=== PATIENT | male | born 1940 | race Caucasian/White ===

== ENCOUNTER 2017-03-21 17:21 | Inpatient (IN) | payer MEDICARE, BC ==
[~2017-03-21] VITALS: Ht 165.1 cm; Wt 61.6 kg
[2017-03-21 18:33] LABS: BASOPHILS % 0.3 % (0.0-2.0); EOSINOPHILS % 0.4 % (0.0-7.0); HEMATOCRIT 49.7 % (42.0-52.0); HEMOGLOBIN 16.9 g/dl (14.0-18.0); LYMPHOCYTES # 1.6 10^3/ul (0.8-2.9); MEAN CORPUSCULAR HEMOGLOBIN 29.9 pg (29.0-33.0); MEAN PLATELET VOLUME 11.5 fl (7.4-10.4); MONOCYTE # 0.9 10^3/ul (0.3-0.9); MONOCYTES % 9.3 % (0.0-11.0); NEUTROPHIL # 7.1 10^3/ul (1.6-7.5); NEUTROPHILS % 73.8 % (39.0-77.0); PLATELET COUNT 212 10^3/UL (140-415); RED BLOOD COUNT 5.65 10^6/ul (4.70-6.10); RED CELL DISTRIBUTION WIDTH 12.9 % (11.5-14.5); WHITE BLOOD COUNT 9.7 10^3/ul (4.8-10.8)
[2017-03-21 18:48] LABS: INR 0.98; PARTIAL THROMBOPLASTIN TIME 27.6 Sec (25.0-35.0)
[2017-03-21 18:51] LABS: ANION GAP 12 (8-16); BLOOD UREA NITROGEN 27 mg/dl (7-20); CALCIUM 9.3 mg/dl (8.4-10.2); CARBON DIOXIDE 28 mmol/L (21-31); CHLORIDE 103 mmol/L (97-110); GLUCOSE 124 mg/dl (70-220); POTASSIUM 3.2 mmol/L (3.5-5.1); SODIUM 140 mmol/L (135-144)
[2017-03-21 19:03] LABS: TROPONIN-I < 0.012 ng/ml (0.00-0.12)
[2017-03-21] MEDS ORDERED: POTASSIUM CHLORIDE (SR) 20 MEQ TAB PO STA (19:23)
--- NOTE | 2017-03-21 19:24 | RADRPT ---
PROCEDURE: XR Chest. CLINICAL INDICATION: Possible Stroke, altered mental status TECHNIQUE: Single frontal view of the chest was obtained. COMPARISON: None available FINDINGS: The cardiomediastinal silhouette is normal size. Pulmonary vasculature is within normal limits. Th e lungs are clear. There is mild to moderate aortic calcification. No signs of pleural fluid or pneumothorax are seen. The osseous structures and soft tissues are unre markable. IMPRESSION: No evidence for active cardiopulmonary disease. There is mild to moderate aortic calcification. RPTAT: HBST .Getachew Jolley MD, MD Date Time Electronically viewed and signed by .Getachew Jolley MD, on 03/21/2017 19:23 .T/
--- NOTE | 2017-03-21 19:50 | RADRPT ---
PROCEDURE: Noncontrast CT Head. CLINICAL INDICATION: Dizziness. Possible stroke. TECHNIQUE: Noncontrast CT of the head was obtained. The administered radiation dose was CTDI vol = 44.19 mGy, DLP = 720.23 mGy-cm. One or more of the following dose reduction techniques were used: Au tomated exposure control, Adjustment of the mA and/or kV according to patient size, or Use of iterat leidy reconstruction technique. COMPARISON: There are no similar studies submitted for comparison. FINDINGS: There is a large acute infarct of the left cerebellar hemisphere with sparing of the superior left c erebellar hemisphere, compatible with a left posterior inferior cerebellar artery vascular territory acute infarct.. There is associated local mass effect with mild effacement of the fourth ventricle on the left and mild rightward deviation of the cerebellar vermis. There is mild mass effect on the left dorsolateral medulla. There is associated mild effacement of the left quadrigeminal plate ciste rn. No inferior herniation to the foramen magnum is seen. There is no acute intracranial hemorrhage. There is no midline shift in the supratentorial compartment. There is mild to moderate diffuse cere bral volume loss with compensatory diffuse cerebral sulcal and ventricular enlargement. Patchy low a ttenuation scattered in the periventricular and deep cerebral white matter is nonspecific, but sugge stive of mild chronic microangiopathic change. A 3 mm rounded cortical based calcification in the right parietal lobe is nonspecific but suggestive of sequelae of neurocysticercosis or other inflamm atory/infectious etiology (series 2, image 21). There is intracranial calcific atherosclerotic disea se involving the internal carotid arteries bilaterally and vertebral basilar system. The orbits are grossly unremarkable. There is mild mucosal thickening in the ethmoid sinuses bilaterally. The left frontal sinus is hypoplastic. The visualized mastoid air cells are clear. No acute fracture or suspi cious osseous lesion is identified. IMPRESSION: 1. Large acute infarct in the left inferior and mid cerebellar hemisphere with associated local mass effect. There is mild effacement of the fourth ventricle on the left and mild rightward deviation o f the cerebellar vermis. There is mild mass effect upon the left dorsolateral medulla. No evidence o f hydrocephalus at this time. Recommend short interval follow-up imaging. 2. No evidence of acute intracranial hemorrhage at this time. 3. Mild to moderate diffuse cerebral volume loss. 4. Evidence of mild chronic microangiopathic cerebral white matter change. 5. A 3 mm rounded cortical based calcification in the right parietal lobe is nonspecific, but sugges tive of sequelae of neurocysticercosis or other inflammatory/infectious etiology. 6. Intracranial calcific atherosclerotic disease. 7. Mild ethmoid sinus mucosal thickening. Hypoplastic left frontal sinus. Critical results call report was made to Dr. Lopez at 19:42 on 03/21/2017. RPTAT: [facility] Olegario Navarro Physician Date Time Electronically viewed and signed by Olegario Navarro Physician on 03/21/2017 19:50 RC/
[2017-03-21] MEDS ORDERED: ASPIRIN 325 MG TAB PO ONE (20:00)
[2017-03-21] MEDS ORDERED: ACETAMINOPHEN 650 MG SUPP PR PRN (21:00)
[2017-03-21] MEDS ORDERED: ACETAMINOPHEN 325 MG TAB PO PRN (21:00)
[2017-03-21] MEDS: DOCUSATE SODIUM 100 MG CAP PO SCH (21:00)
[2017-03-21 21:03] VITALS: TEMP 98
[2017-03-21] MEDS ORDERED: ONDANSETRON 4 MG INJ ONE (21:19)
[2017-03-21] MEDS ORDERED: morphine 2 MG INJ ONE (21:19)
--- NOTE | 2017-03-21 21:19 | ERA ---
ER Documentation Chief Complaint Date/Time DATE: 03/21/17 TIME: 21:16 Chief Complaint dizziness and nausea x 3 days HPI Patient is a 76-year-old male with hypertension who presents with dizziness. He said that on Thursday he "looked into the sun" and then became dizzy and fell down. He had vomiting on that day. For 3 days now he has had no vomiting but is unable to stand on his feet. He says that when he tries to walk he falls to the side. He has a left-sided facial droop per the . He has a headache. Upon review of old medical records this is the patient's first visit to the emergency department. ROS All systems reviewed and are negative except as per history of present illness. Allergies Allergies: Coded Allergies: No Known Allergy (Unverified , 03/21/17) PMhx/Soc History of Surgery: No Anesthesia Reaction: No Hx Neurological Disorder: No Hx Respiratory Disorders: No Hx Cardiac Disorders: Yes (HTN) Hx Psychiatric Problems: No Hx Miscellaneous Medical Probl: No Hx Alcohol Use: No Hx Substance Use: No Hx Tobacco Use: No Smoking Status: Never smoker FmHx Family History: No diabetes Physical Exam Vitals Vital Signs Date Time Temp Pulse Resp B/P Pulse Ox O2 Delivery O2 Flow Rate FiO2 03/21/17 21:03 98.0 71 14 166/94 96 Room Air 03/21/17 20:57 75 17 169/91 98 Room Air 03/21/17 20:15 98.2 70 17 176/98 96 03/21/17 19:53 72 16 168/95 98 03/21/17 19:15 72 17 168/100 97 03/21/17 19:12 Nasal Cannula 2 03/21/17 17:25 99.1 86 18 182/96 99 Physical Exam Const: Mild distress Head: Atraumatic Eyes: Normal Conjunctiva ENT: Left sided facial droop which spares the left eyebrow Neck: Full range of motion..~ No meningismus. Resp: Clear to auscultation bilaterally Cardio: Regular rate and rhythm, no murmurs Abd: Soft, non tender, non distended. Normal bowel sounds Skin: No petechiae or rashes Back: No midline or flank tenderness Ext: No cyanosis, or edema Neur: Awake and alert, patient has a left-sided facial droop, finger to nose in the left side is very awkward and he is unable to get to my finger, finger- nose on the right is normal, no pronator drift Psych: Normal Mood and Affect Result Diagram: 03/21/17 1800 03/21/17 1800 Results 24 hrs Laboratory Tests Test 03/21/17 18:00 03/21/17 18:06 White Blood Count 9.710^3/ul Red Blood Count 5.6510^6/ul Hemoglobin 16.9g/dl Hematocrit 49.7% Mean Corpuscular Volume 88.0fl Mean Corpuscular Hemoglobin 29.9pg Mean Corpuscular Hemoglobin Concent 34.0g/dl Red Cell Distribution Width 12.9% Platelet Count 71243^3/UL Mean Platelet Volume 11.5fl Neutrophils % 73.8% Lymphocytes % 16.0% Monocytes % 9.3% Eosinophils % 0.4% Basophils % 0.3% Nucleated Red Blood Cells % 0.0/100WBC Neutrophils # 7.110^3/ul Lymphocytes # 1.610^3/ul Monocytes # 0.910^3/ul Eosinophils # 0.010^3/ul Basophils # 0.010^3/ul Nucleated Red Blood Cells # 0.010^3/ul Prothrombin Time 13.0Sec Prothrombin Time Ratio 1.0 INR International Normalized Ratio 0.98 Activated Partial Thromboplast Time 27.6Sec Sodium Level 140mmol/L Potassium Level 3.2mmol/L Chloride Level 103mmol/L Carbon Dioxide Level 28mmol/L Anion Gap 12 Blood Urea Nitrogen 27mg/dl Creatinine 1.10mg/dl Glucose Level 124mg/dl Hemoglobin A1c 6.3% Calcium Level 9.3mg/dl Troponin I < 0.012ng/ml Bedside Glucose 110mg/dL Current Medications Medications (Trade) Dose Ordered Sig/Branden Route PRN Reason Start Time Stop Time Status Last Admin Dose Admin Potassium Chloride (Klor-Con 20) 40 meq ONCE STAT PO 03/21/17 19:23 03/21/17 19:24 DC 03/21/17 19:53 Aspirin (Aspirin) 325 mg ONCE ONCE PO 03/21/17 20:00 03/21/17 20:05 DC 03/21/17 19:53 Ondansetron HCl (Zofran Inj) 4 mg Q6H PRN IV NAUSEA AND/OR VOMITING 03/21/17 21:00 UNV Acetaminophen (Tylenol Supp) 650 mg Q4H PRN MA PAIN LEVEL 1-3 OR FEVER 03/21/17 21:00 UNV Morphine Sulfate (morphine) 2 mg Q4H PRN IV PAIN LEVEL 7-10 03/21/17 21:00 UNV Pantoprazole (Protonix Iv) 40 mg DAILY@06 IV 03/22/17 06:00 UNV Acetaminophen (Tylenol Tab) 650 mg Q4H PRN PO Temp greater than 99.6F 03/21/17 21:00 UNV Docusate Sodium (Colace) 100 mg BID PO 03/21/17 21:00 UNV Hydralazine HCl (Apresoline) 10 mg Q4H PRN IV ELEVATED BLOOD PRESSURE 03/21/17 21:00 UNV Procedures/MDM CT brain shows left-sided cerebral infarct per radiology. CTA of the brain and neck is pending at this time. EKG read by me: Rate/Rhythm: Regular rate and rhythm at a normal rate Intervals: Normal Impression: No evidence of ischemia or arrhythmia Patient is a 76-year-old male with hypertension who presents with an acute left- sided cerebellar infarct. This likely started 3 days ago on Thursday and hopefully the brain is swollen to its maximum point at this time. There is no sign of herniation on the CT scan. Unfortunately the cerebellar area does not have much space and swelling can be life-threatening. The patient was initially ordered aspirin for the infarct the patient received it prior to speaking with Dr. Emerson the neurosurgeon who would have preferred to hold off on aspirin in case the patient needed to go to surgery. The patient has a blood pressure of under 180 systolic which I would like to keep at this time. The patient will be admitted to the intensive care unit under the care of Dr. Hicks. The patient is not a candidate for TPA given the symptoms started 3 days ago. I did speak to Dr. Emerson from neurosurgery who is the neurosurgeon it solutions architect and will see the patient in consultation. Critical Care: Time: 35 minutes excluding all billable procedures. Treatments/Evaluations: Close monitoring and treatment of unstable vital signs, cardiorespiratory, and neurologic status, while maintaining tight balance of fluid, respiratory, and cardiac interventions. Departure Diagnosis: Primary Impression: Cerebellar infarct Additional Impression: Dizziness Condition: Critical ALICE AMOR MD Mar 21, 2017 21:19
[2017-03-21] MEDS: morphine 2 MG INJ IV PRN ×2 (21:29→21:30)
[2017-03-21] MEDS: ONDANSETRON 4 MG INJ IV PRN (21:30)
[2017-03-21] MEDS ORDERED: SOD CHLORIDE 0.9% 100 ML ONE (21:46)
[2017-03-21] MEDS ORDERED: IOHEXOL 100 ML ONE (21:46)
--- NOTE | 2017-03-21 22:43 | RADRPT ---
PROCEDURE: CTA Head and Neck with contrast. CLINICAL INDICATION: Cerebellar stroke. TECHNIQUE: The study was performed utilizing a GE 64-slice multidetector CT scanner. Direct spiral 1 mm axial sections were obtained through the intracranial vasculature with the use of 100 cc of Vi sipaque 320 nonionic intravenous contrast material. Coronal and sagittal as well as maximal intensi ty projection reformations were obtained. 1 or more of the following dose reduction techniques were utilized: Automated exposure control, adjustment of the mA and/or kV according to patient's size, i terative reconstruction technique. The images were reviewed on a PACS workstation. RADIATION DOSE: CTDIvol: 57.8 mGyDLP: 631.0 mGy-cm COMPARISON: CT head 03/21/2017 FINDINGS: CTA Neck: The aortic arch and proximal great vessels are normal in appearance. The common carotid a rtery is normal in appearance. There is mild to moderate atherosclerotic plaque involving the bilat eral carotid bulbs/proximal ICA with less than 10% luminal narrowing by NASCET criteria.. The cervi josh segments of the internal carotid arteries unremarkable. The vertebral arteries are codominant. The vertebral arteries are normal in appearance. There is no aneurysm, hemodynamically significant stenosis or dissection. There are mild subpleural emphysematous changes in the bilateral lung apice s, right more prominent than left. The neck soft tissues unremarkable CTA head: The petrous and cavernous segment of the internal carotid arteries are normal in appearan ce. There is mild arteriosclerotic plaque involving the parasellar internal carotid arteries. The supraclinoid internal carotid arteries are normal in appearance. The middle and anterior cerebral a rteries as well as their branches are normal in appearance. The anterior communicating artery is pa tent. The left posterior communicating artery is patent. There is origin of the right posteri or cerebral artery, normal variant. The vertebral arteries are codominant. The right posterior inferior cerebellar artery is normal in appearance (axial series image 223). The left posterior inferior cerebellar artery is not visualized distal to its origin (axial series image 212). The hypodensity in the left inferior cerebellar vernon sphere in correlating with the PICA occlusion. The basilar arteries branches are normal in appearanc e. The posterior cerebral arteries unremarkable. There is no filling defect, aneurysm, hemodynamic ally significant stenosis or vascular malformation. CT head wo: There is redemonstration of ill-defined low density involving the left inferior cerebel lar hemisphere, suggesting acute/subacute infarct. There is no evidence of hemorrhagic conversion. T here is no intracranial hemorrhage, extra-axial fluid collection, mass lesion, midline shift or hydr ocephalus. There is mild prominence of the cerebral sulci, lateral and third ventricles. The peña- white matter differentiation is preserved. The basal cisterns are patent. The midline structures a re intact. The orbits, calvarium and extracranial soft tissues are normal in appearance. The visual ized paranasal sinuses, mastoid air cells and middle ear cavities are normally aerated. IMPRESSION: 1. Mild atherosclerosis involving the bilateral carotid bulbs/proximal ICA with less than 10% lumin al narrowing by NASCET criteria. 2. Otherwise, normal CTA of the neck. No evidence of aneurysm, hemodynamically significant stenosis or dissection. 3. Occlusion of the left posterior - inferior cerebellar artery just distal to the origin, correlat e with the patient's low density in the left inferior cerebellar hemisphere. 4. The remaining intracranial arteries are normal in appearance. No evidence of aneurysm, hemodynam ically significant stenosis or vascular malformation. 5. Redemonstration of ill-defined low density in the left inferior cerebellar hemisphere suggestive of infarct, acute/subacute in timing. 6. No intracranial hemorrhage, mass lesion or hydrocephalous. The above findings were discussed with Patient's physician Getachew Lopez by telephone on 03/21/2017 1 0:43:00 PM. RPTAT: [facility]AS .Geronimo Escalera MD, Date Time Electronically viewed and signed by .Geronimo Escalera MD, MD on 03/21/2017 22:43 .S/
--- NOTE | 2017-03-21 22:54 | HP ---
Date/Time of Note Date/Time of Note DATE: 03/21/17 TIME: 22:54 Assessment/Plan VTE Prophylaxis VTE Prophylaxis Intervention: SCD's Lines/Catheters IV [facility]from [facility] Saline Lock Assessment/Plan Chief Complaint/Hosp Course This is a 76-year-old male being admitted to the ICU floor for: #1 Acute/recent CVA: Patient had symptoms approximately 4 days ago. And exam he has a left-sided lower facial droop, left-sided finger to nose exam is abnormal, he also apparently has an unsteady gait, though the examination was deferred. CAT scan of the brain showed: Large acute infarct in the left inferior and mid cerebellar hemisphere with associated local mass effect. There is mild effacement of the fourth ventricle on the left and mild rightward deviation of the cerebellar vermis. There is mild mass effect upon the left dorsolateral medulla. No evidence of hydrocephalus at this time CTA of the neck shows: Occlusion of the left posterior - inferior cerebellar artery just distal to the origin, correlate with the patient's low density in the left inferior cerebellar hemisphere. At the current time we will admit the patient to the ICU. Every 4 hours neuro checks. Bedside swallow eval. Telemetry monitoring. 2D echocardiogram in the a.m. Repeat CAT scan in the a.m. MRI of the brain. Will consult neurology, neurosurgery is already on board as per the ED. PT OT swallow eval. Check lipid panel A1c, TSH. He did receive aspirin 325 mg in the ED. Will defer further aspirin/Plavix to neurology/neurosurgery. #2 elevated blood pressure: We will monitor patient's blood pressures as it does seem like he probably has an underlying history of hypertension and start antihypertensives as indicated with goal of sbp less than 140. #3 DVT GI prophylaxis: SCDs, Protonix Further treatment strategy will be implemented as per the clinical course. Greater than 40 minutes of critical care time was spent on the care and management of this patient. Problems: HPI/ROS Admit Date/Time Admit Date/Time Hx of Present Illness Chief complaint: Dizziness Patient is a 76-year-old male with dizziness. He said that on Thursday he "looked into the sun" and then became dizzy and fell down. He had vomiting on that day. For 3 days now he has had no vomiting but is unable to stand on his feet. He says that when he tries to walk he falls to the left side. He has a left-sided facial droop per the . He has a headache. To the ED physician he stated he had hypertension however to me he denied that he had hypertension. Allergies: NKDA Medications: None ROS Const: As per HPI Eyes : No pain discharge or redness or change in visual acuity ENT: No pain, sore throat, congestion, congestion, dysphagia or discharge Respiratory: No shortness of breath, cough, sputum, wheezing, or pleuritic pain Cardiovascular: No chest pain, palpitation, PND, or edema GI : no change in appetite, abdominal pain, nausea, vomiting, diarrhea, constipation, or change in the color his stool Genitourinary: No dysuria, hematuria, flank pain , discharge or CVA tenderness Musculoskeletal: No joint pain, back pain, neck pain, restricted range of motion in neck or joints Skin: No rash, bruising or hives Neuro: As per HPI Endocrine: No polyuria, polydipsia, temperature intolerance Psych: No hallucination, depression, anxiety or suicidal ideation PMH/Family/Social Past Medical History Previous nasal fracture from fall Past Surgical History Nasal fracture repair, right salivary gland surgery Family History Significant Family History: no pertinent family hx Social History Alcohol Use: none Smoking Status: Never smoker Drug Use: none Exam/Review of Systems Vital Signs Vitals Vital Signs Date Time Temp Pulse Resp B/P Pulse Ox O2 Delivery O2 Flow Rate FiO2 03/21/17 22:12 69 14 186/98 95 Room Air 03/21/17 21:03 98.0 03/21/17 19:12 2 Exam Exam General: Patient is well-developed well-nourished The patient is alert oriented -3 lying comfortably in bed. HEENT: Atraumatic, normocephalic. The pupils are equal, round and reactive. Extraocular motor are intact, left-sided lower facial droop Neck: Supple with full range of motion. No rigidity or meningismus Chest: Nontender Lungs: Clear to auscultation bilaterally no crackles rales or wheezing Heart: Normal S1-S2, Regular rhythm and rate. No murmur, S3, or S4 Abdomen: Soft , nontender, nondistended , bowel sounds are present. No guarding no rebound tenderness , No masses or organomegaly. No costovertebral temporal angle mass Extremities: Normal to inspection, no edema no cyanosis Neurologic: He is alert and oriented 3, normal mental status, speech normal, he does have a left-sided lower facial droop, he is able to raise his bilateral eyebrows, abnormal left-sided finger to nose exam, no pronator drift, gait exam was not performed secondary to patient being tired, however he states that when he is walking he moves towards the left. Additional Comments EKG : Rate/Rhythm: Regular rate and rhythm at a normal rate Intervals: Normal Impression: No evidence of ischemia or arrhythmia As per ED physician documentationPROCEDURE: CTA Head and Neck with contrast. CLINICAL INDICATION: Cerebellar stroke. TECHNIQUE: The study was performed utilizing a GE 64-slice multidetector CT scanner. Direct spiral 1 mm axial sections were obtained through the intracranial vasculature with the use of 100 cc of Visipaque 320 nonionic intravenous contrast material. Coronal and sagittal as well as maximal intensity projection reformations were obtained. 1 or more of the following dose reduction techniques were utilized: Automated exposure control, adjustment of the mA and/or kV according to patient's size, iterative reconstruction technique. The images were reviewed on a PACS workstation. RADIATION DOSE: CTDIvol: 57.8 mGy DLP: 631.0 mGy-cm COMPARISON: CT head 03/21/2017 FINDINGS: CTA Neck: The aortic arch and proximal great vessels are normal in appearance. The common carotid artery is normal in appearance. There is mild to moderate atherosclerotic plaque involving the bilateral carotid bulbs/proximal ICA with less than 10% luminal narrowing by NASCET criteria.. The cervical segments of the internal carotid arteries unremarkable. The vertebral arteries are codominant. The vertebral arteries are normal in appearance. There is no aneurysm, hemodynamically significant stenosis or dissection. There are mild subpleural emphysematous changes in the bilateral lung apices, right more prominent than left. The neck soft tissues unremarkable CTA head: The petrous and cavernous segment of the internal carotid arteries are normal in appearance. There is mild arteriosclerotic plaque involving the parasellar internal carotid arteries. The supraclinoid internal carotid arteries are normal in appearance. The middle and anterior cerebral arteries as well as their branches are normal in appearance. The anterior communicating artery is patent. The left posterior communicating artery is patent. There is origin of the right posterior cerebral artery, normal variant. The vertebral arteries are codominant. The right posterior inferior cerebellar artery is normal in appearance (axial series image 223). The left posterior inferior cerebellar artery is not visualized distal to its origin (axial series image 212). The hypodensity in the left inferior cerebellar hemisphere in correlating with the PICA occlusion. The basilar arteries branches are normal in appearance. The posterior cerebral arteries unremarkable. There is no filling defect, aneurysm, hemodynamically significant stenosis or vascular malformation. CT head wo: There is redemonstration of ill-defined low density involving the left inferior cerebellar hemisphere, suggesting acute/subacute infarct. There is no evidence of hemorrhagic conversion. There is no intracranial hemorrhage, extra-axial fluid collection, mass lesion, midline shift or hydrocephalus. There is mild prominence of the cerebral sulci, lateral and third ventricles. The peña-white matter differentiation is preserved. The basal cisterns are patent. The midline structures are intact. The orbits, calvarium and extracranial soft tissues are normal in appearance. The visualized paranasal sinuses, mastoid air cells and middle ear cavities are normally aerated. IMPRESSION: 1. Mild atherosclerosis involving the bilateral carotid bulbs/proximal ICA with less than 10% luminal narrowing by NASCET criteria. 2. Otherwise, normal CTA of the neck. No evidence of aneurysm, hemodynamically significant stenosis or dissection. 3. Occlusion of the left posterior - inferior cerebellar artery just distal to the origin, correlate with the patient's low density in the left inferior cerebellar hemisphere. 4. The remaining intracranial arteries are normal in appearance. No evidence of aneurysm, hemodynamically significant stenosis or vascular malformation. 5. Redemonstration of ill-defined low density in the left inferior cerebellar hemisphere suggestive of infarct, acute/subacute in timing. 6. No intracranial hemorrhage, mass lesion or hydrocephalous. The above findings were discussed with Patient's physician Alice Amor by telephone on 03/21/2017 10:43:00 PM. RPTAT: HGAS .Geronimo Escalera MD, MD Date Time Electronically viewed and signed by .Geronimo Escalera MD, MD on 03/21/2017 22: 43 .S/ CC: ALICE AMOR MD PROCEDURE: Noncontrast CT Head. CLINICAL INDICATION: Dizziness. Possible stroke. TECHNIQUE: Noncontrast CT of the head was obtained. The administered radiation dose was CTDI vol = 44.19 mGy, DLP = 720.23 mGy-cm. One or more of the following dose reduction techniques were used: Automated exposure control, Adjustment of the mA and/or kV according to patient size, or Use of iterative reconstruction technique. COMPARISON: There are no similar studies submitted for comparison. FINDINGS: There is a large acute infarct of the left cerebellar hemisphere with sparing of the superior left cerebellar hemisphere, compatible with a left posterior inferior cerebellar artery vascular territory acute infarct.. There is associated local mass effect with mild effacement of the fourth ventricle on the left and mild rightward deviation of the cerebellar vermis. There is mild mass effect on the left dorsolateral medulla. There is associated mild effacement of the left quadrigeminal plate cistern. No inferior herniation to the foramen magnum is seen. There is no acute intracranial hemorrhage. There is no midline shift in the supratentorial compartment. There is mild to moderate diffuse cerebral volume loss with compensatory diffuse cerebral sulcal and ventricular enlargement. Patchy low attenuation scattered in the periventricular and deep cerebral white matter is nonspecific, but suggestive of mild chronic microangiopathic change. A 3 mm rounded cortical based calcification in the right parietal lobe is nonspecific but suggestive of sequelae of neurocysticercosis or other inflammatory/infectious etiology (series 2, image 21 ). There is intracranial calcific atherosclerotic disease involving the internal carotid arteries bilaterally and vertebral basilar system. The orbits are grossly unremarkable. There is mild mucosal thickening in the ethmoid sinuses bilaterally. The left frontal sinus is hypoplastic. The visualized mastoid air cells are clear. No acute fracture or suspicious osseous lesion is identified. IMPRESSION: 1. Large acute infarct in the left inferior and mid cerebellar hemisphere with associated local mass effect. There is mild effacement of the fourth ventricle on the left and mild rightward deviation of the cerebellar vermis. There is mild mass effect upon the left dorsolateral medulla. No evidence of hydrocephalus at this time. Recommend short interval follow-up imaging. 2. No evidence of acute intracranial hemorrhage at this time. 3. Mild to moderate diffuse cerebral volume loss. 4. Evidence of mild chronic microangiopathic cerebral white matter change. 5. A 3 mm rounded cortical based calcification in the right parietal lobe is nonspecific, but suggestive of sequelae of neurocysticercosis or other inflammatory/infectious etiology. 6. Intracranial calcific atherosclerotic disease. 7. Mild ethmoid sinus mucosal thickening. Hypoplastic left frontal sinus. Critical results call report was made to Dr. Amor at 19:42 on 03/21/2017. RPTAT: HRC Olegario Navarro Physician Date Time Electronically viewed and signed by Olegario Navarro Physician on 03/21/2017 19: 50 RC/ CC: ALICE AMORROCEDURE: XR Chest. CLINICAL INDICATION: Possible Stroke, altered mental status TECHNIQUE: Single frontal view of the chest was obtained. COMPARISON: None available FINDINGS: The cardiomediastinal silhouette is normal size. Pulmonary vasculature is within normal limits. The lungs are clear. There is mild to moderate aortic calcification. No signs of pleural fluid or pneumothorax are seen. The osseous structures and soft tissues are unremarkable. IMPRESSION: No evidence for active cardiopulmonary disease. There is mild to moderate aortic calcification. RPTAT: HBST .Alice Jolley MD, MD Date Time Electronically viewed and signed by .Alice Jolley MD, MD on 03/21/2017 19:23 .T/ CC: ALICE AMOR MD Labs Result Diagram: 03/21/17 1800 03/21/17 1800 Medications Medications Current Medications Ondansetron HCl (Zofran Inj) 4 mg Q6H PRN IV NAUSEA AND/OR VOMITING Last administered on 03/21/17t 21:30; Admin Dose 4 MG; Start 03/21/17 at 21:00 Acetaminophen (Tylenol Supp) 650 mg Q4H PRN [place] PAIN LEVEL 1-3 OR FEVER; Start 03/21/17 at 21:00 Morphine Sulfate (morphine) 2 mg Q4H PRN IV PAIN LEVEL 7-10 Last administered on 03/21/17t 21:30; Admin Dose 2 MG; Start 03/21/17 at 21:00 Pantoprazole (Protonix Iv) 40 mg DAILY@06 IV ; Start 03/22/17 at 06:00 Acetaminophen (Tylenol Tab) 650 mg Q4H PRN PO Temp greater than 99.6F; Start 03/21/17 at 21:00 Docusate Sodium (Colace) 100 mg BID PO ; Start 03/21/17 at 21:00 Hydralazine HCl (Apresoline) 10 mg Q4H PRN IV ELEVATED BLOOD PRESSURE; Start 03/21/17 at 21:00 LANI DILL Mar 21, 2017 22:54
[2017-03-22] VITALS (41 sets, daily range): BP systolic 109–205; BP diastolic 57–94; PULSE 71–117; RESP 10–26; Ht 165.1 cm; Wt 61.6 kg
[2017-03-22] MEDS: morphine 2 MG INJ IV PRN (00:49)
[2017-03-22] MEDS: hydrALAzine 20 MG INJ IV PRN ×3 (02:08→16:40)
[2017-03-22] MEDS ORDERED: PANTOPRAZOLE 40 MG INJ IV SCH (06:00)
[2017-03-22] MEDS: ONDANSETRON 4 MG INJ IV PRN (08:24)
[2017-03-22] MEDS: DOCUSATE SODIUM 100 MG CAP PO SCH ×2 (08:27→21:47)
[2017-03-22] MEDS ORDERED: EVAC CONTAINER XX SCH (14:00)
[2017-03-22] MEDS ORDERED: EVAC CONTAINER IVPB SCH (14:00)
[2017-03-22] MEDS ORDERED: MANNITOL 20% IVPB SCH (14:00)
[2017-03-22] MEDS ORDERED: MANNITOL XX SCH (14:00)
[2017-03-22] MEDS: MANNITOL 25% 50 ML INJ IV* SCH ×4 (15:00→21:51)
[2017-03-22] MEDS: MANNITOL 20% IVPB SCH ×3 (15:03→17:07)
[2017-03-22] MEDS: EVAC CONTAINER IVPB SCH ×3 (15:03→17:07)
--- NOTE | 2017-03-22 16:01 | PN ---
Date/Time of Note Date/Time of Note DATE: 03/22/17 TIME: 15:58 Assessment/Plan VTE Prophylaxis VTE Prophylaxis Intervention: SCD's Lines/Catheters IV Catheter Type (from Nrsg): Saline Lock Urinary Cath still in place: Yes Reason Cath still needed: urinary retention Assessment/Plan Chief Complaint/Hosp Course 76 yo male with acute cerebellar CVA - Management per neurology/neurosurgery - Aspirin 81 daily, statin - BP control Problems: Subjective 24 Hr Interval Summary Free Text/Dictation Continues to have nausea, emesis L pronator drift and ataxic movements Gait imbalance, drifts to the left w ambulation Exam/Review of Systems Vital Signs Vitals Vital Signs Date Time Temp Pulse Resp B/P Pulse Ox O2 Delivery O2 Flow Rate FiO2 03/22/17 12:30 104 14 128/67 94 03/22/17 12:00 98.3 2.0 03/22/17 11:00 Nasal Cannula Intake and Output 03/21/17 03/21/17 03/22/17 15:00 23:00 07:00 Output Total 150 ml Balance -150 ml Results Result Diagram: 03/21/17 1800 03/21/17 1800 Results 24 hrs Laboratory Tests Test 03/21/17 18:00 03/21/17 18:06 White Blood Count 9.7 Red Blood Count 5.65 Hemoglobin 16.9 Hematocrit 49.7 Mean Corpuscular Volume 88.0 Mean Corpuscular Hemoglobin 29.9 Mean Corpuscular Hemoglobin Concent 34.0 Red Cell Distribution Width 12.9 Platelet Count 212 Mean Platelet Volume 11.5 H Neutrophils % 73.8 Lymphocytes % 16.0 Monocytes % 9.3 Eosinophils % 0.4 Basophils % 0.3 Nucleated Red Blood Cells % 0.0 Neutrophils # 7.1 Lymphocytes # 1.6 Monocytes # 0.9 Eosinophils # 0.0 Basophils # 0.0 Nucleated Red Blood Cells # 0.0 Prothrombin Time 13.0 Prothrombin Time Ratio 1.0 INR International Normalized Ratio 0.98 Activated Partial Thromboplast Time 27.6 Sodium Level 140 Potassium Level 3.2 L Chloride Level 103 Carbon Dioxide Level 28 Anion Gap 12 Blood Urea Nitrogen 27 H Creatinine 1.10 Glucose Level 124 Hemoglobin A1c 6.3 H Calcium Level 9.3 Troponin I < 0.012 Bedside Glucose 110 Medications Medications Current Medications Ondansetron HCl (Zofran Inj) 4 mg Q6H PRN IV NAUSEA AND/OR VOMITING Last administered on 03/22/17 08:24; Admin Dose 4 MG; Start 03/21/17 at 21:00 Acetaminophen (Tylenol Supp) 650 mg Q4H PRN [place] PAIN LEVEL 1-3 OR FEVER; Start 03/21/17 at 21:00 Morphine Sulfate (morphine) 2 mg Q4H PRN IV PAIN LEVEL 7-10 Last administered on 03/22/17 00:49; Admin Dose 2 MG; Start 03/21/17 at 21:00 Acetaminophen (Tylenol Tab) 650 mg Q4H PRN PO Temp greater than 99.6F; Start 03/21/17 at 21:00 Docusate Sodium (Colace) 100 mg BID PO ; Start 03/21/17 at 21:00 Hydralazine HCl (Apresoline) 10 mg Q4H PRN IV ELEVATED BLOOD PRESSURE Last administered on 03/22/17 07:46; Admin Dose 10 MG; Start 03/21/17 at 21:00 Influenza Virus Vaccine (Fluzone) 0.5 ml ONCE ONCE IM* ; Start 03/24/17 at 09: 00; Stop 03/24/17 at 09:01 Mannitol 25 gm 25 gm Q4 IV* ; Start 03/22/17 at 13:00 Mannitol/N/A (Mannitol 20%/ Evac Container) 125 ml @ 250 mls/hr Q4 IVPB Last administered on 03/22/17 15:03; Admin Dose 250 MLS/HR; Start 03/22/17 at 14:00 Famotidine (Pepcid Iv) 20 mg Q12 IV ; Start 03/22/17 at 21:00 MEHNAZ BRYANT MD Mar 22, 2017 16:01
--- NOTE | 2017-03-22 17:34 | CONS ---
Date/Time of Note Date/Time of Note DATE: 03/22/17 TIME: 17:27 Assessment/Plan Assessment/Plan Chief Complaint/Hosp Course 76 year old M with no significant PMHx 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 CTA showed occlusion Left PICA Undergoing further work up. Recommendations: Mannitol given, neurosurgery following in case he requires sub-occipital craniectomy continue close neuro checks continue ICU level care stat Head CT for worsening of mentation, decreased attention pupillary changes or development of weakness SBP less than 140 continue aspirin MRI Brain w/o contrast to evaluate extent of infarction ECHO w bubble Check lipid panel HBA1C Tele monitoring for afib DVT ppx PT/OT/Speech eval will follow please contact me for any decline in his status Problems: Consultation Date/Type/Reason Admit Date/Time 03/22/17 Date of Consultation: Mar 22, 2017 Type of Consultation: Neurology Reason for Consultation Left PICA infarct Referring Provider: LANI DILL Hx of Present Illness 76 year old male with no significant PMHx p/w c/o dizziness headaches and nausea. His sx began this past Thursday, had episodes of vomiting on that day. He reports significant ataxia unable to stand for the past few days falling to the left with left facial droop noted. CTH showed large Left PICA infarction with associated mass effect mild effacement of fourth ventricle with mild deviation cerebellar vermis no hemorrhage or HCP. He is admitted to the ICU for closer monitoring. nausea headache Past Medical History none Social History Smoking Status: Former smoker Exam/Review of Systems Vital Signs Vitals Vital Signs Date Time Temp Pulse Resp B/P Pulse Ox O2 Delivery O2 Flow Rate FiO2 03/22/17 16:19 93 03/22/17 12:30 14 128/67 94 03/22/17 12:00 98.3 2.0 03/22/17 11:00 Nasal Cannula Intake and Output 03/21/17 03/21/17 03/22/17 15:00 23:00 07:00 Output Total 150 ml Balance -150 ml Exam arousable awake and alert oriented x3 attentive can count backwards 10 --> 1 with no difficulty no aphasia CN: KVNG, no nystagmus visual field intact no sig. facial asymmetry Motor: no drift in arms, strength equal throughout Sensory intact throughout Coordination: difficulty mild ataxia left FTN gait not tested Results Result Diagram: 03/21/17 1800 03/21/17 1800 Results 24 hrs Laboratory Tests Test 03/21/17 18:00 03/21/17 18:06 White Blood Count 9.7 Red Blood Count 5.65 Hemoglobin 16.9 Hematocrit 49.7 Mean Corpuscular Volume 88.0 Mean Corpuscular Hemoglobin 29.9 Mean Corpuscular Hemoglobin Concent 34.0 Red Cell Distribution Width 12.9 Platelet Count 212 Mean Platelet Volume 11.5 H Neutrophils % 73.8 Lymphocytes % 16.0 Monocytes % 9.3 Eosinophils % 0.4 Basophils % 0.3 Nucleated Red Blood Cells % 0.0 Neutrophils # 7.1 Lymphocytes # 1.6 Monocytes # 0.9 Eosinophils # 0.0 Basophils # 0.0 Nucleated Red Blood Cells # 0.0 Prothrombin Time 13.0 Prothrombin Time Ratio 1.0 INR International Normalized Ratio 0.98 Activated Partial Thromboplast Time 27.6 Sodium Level 140 Potassium Level 3.2 L Chloride Level 103 Carbon Dioxide Level 28 Anion Gap 12 Blood Urea Nitrogen 27 H Creatinine 1.10 Glucose Level 124 Hemoglobin A1c 6.3 H Calcium Level 9.3 Troponin I < 0.012 Bedside Glucose 110 Medications Medications Current Medications Ondansetron HCl (Zofran Inj) 4 mg Q6H PRN IV NAUSEA AND/OR VOMITING Last administered on 03/22/17 08:24; Admin Dose 4 MG; Start 03/21/17 at 21:00 Acetaminophen (Tylenol Supp) 650 mg Q4H PRN [place] PAIN LEVEL 1-3 OR FEVER; Start 03/21/17 at 21:00 Morphine Sulfate (morphine) 2 mg Q4H PRN IV PAIN LEVEL 7-10 Last administered on 03/22/17 00:49; Admin Dose 2 MG; Start 03/21/17 at 21:00 Acetaminophen (Tylenol Tab) 650 mg Q4H PRN PO Temp greater than 99.6F; Start 03/21/17 at 21:00 Docusate Sodium (Colace) 100 mg BID PO ; Start 03/21/17 at 21:00 Hydralazine HCl (Apresoline) 10 mg Q4H PRN IV ELEVATED BLOOD PRESSURE Last administered on 03/22/17 16:40; Admin Dose 10 MG; Start 03/21/17 at 21:00 Influenza Virus Vaccine (Fluzone) 0.5 ml ONCE ONCE IM* ; Start 03/24/17 at 09: 00; Stop 03/24/17 at 09:01 Mannitol 25 gm 25 gm Q4 IV* ; Start 03/22/17 at 13:00 Mannitol/N/A (Mannitol 20%/ Evac Container) 125 ml @ 250 mls/hr Q4 IVPB Last administered on 03/22/17t 17:07; Admin Dose 250 MLS/HR; Start 03/22/17 at 14:00 Famotidine (Pepcid Iv) 20 mg Q12 IV ; Start 03/22/17 at 21:00 Aspirin (Aspirin) 81 mg DAILY PO ; Start 03/23/17 at 09:00 Atorvastatin Calcium (Lipitor) 40 mg HS PO ; Start 03/22/17 at 21:00 PRASANNA MAN MD Mar 22, 2017 17:34
--- NOTE | 2017-03-22 18:43 | RADRPT ---
PROCEDURE: MR Brain. CLINICAL INDICATION: TECHNIQUE: An MRI of the brain was performed utilizing the following sequences: Sagittal and axia l T1 weighted, axial T2 weighted, axial sagittal FLAIR, coronal GRE,axial SWAN, axial diffusion weig hted (EPI technique l=[id number]), axial ADC mapping. The images were reviewed on a high-resolution PACS w orkstation. COMPARISON: CT brain from 03/21/2017 FINDINGS: MRI BRAIN: An acute infarct in the left cerebellar hemisphere is again seen. Mass effect upon the fourth ventri oj is seen as well as the left dorsal and lingula. No evidence of hydrocephalus is seen. No other d iffusion weighted abnormalities are seen to suggest the presence of acute ischemia or recent infarct . No susceptibility abnormality is seen. There is no intracranial hemorrhage, mass effect, or midl ine shift. No extra-axial fluid collection is seen. Mild to moderate diffuse cerebral volume loss is seen. Mild amount of scattered nonspecific white matter disease in the periventricular and deep white matter is seen. Normal flow voids are visible the proximal intracranial arteries and dural sin uses, indicating patency. The visualized paranasal sinuses are clear. The mastoid air cells, orbits , and calvarium are unremarkable. 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 IMPRESSION: 1. Acute left cerebellar hemisphere infarct again seen with mass effect upon the fourth ventricle wi thout evidence of hydrocephalus. 2. Mild to moderate volume loss with mild chronic microvascular ischemic changes. RPTAT: HPNM Physician Sylvie Date Time Electronically viewed and signed by Physician Sylvie on 03/22/2017 18:43 /
[2017-03-22] MEDS ORDERED: FAMOTIDINE 20 MG INJ IV SCH (21:00)
[2017-03-22] MEDS ORDERED: ATORVASTATIN 40 MG TAB PO SCH (21:00)
[2017-03-23] VITALS (37 sets, daily range): BP systolic 104–167; BP diastolic 56–87; PULSE 58–106; RESP 10–21
[2017-03-23] MEDS: MANNITOL 25% 50 ML INJ IV* SCH ×2 (01:00→05:35)
[2017-03-23] MEDS: MANNITOL 20% IVPB SCH ×6 (01:02→21:19)
[2017-03-23] MEDS: EVAC CONTAINER IVPB SCH ×6 (01:02→21:19)
--- NOTE | 2017-03-23 06:39 | RADRPT ---
PROCEDURE: CT Brain without contrast. CLINICAL INDICATION: Cerebellar infarct. Follow-up study. TECHNIQUE: Axial images from the skull base through the vertex without IV contrast. Multiplanar r eformatted images were made. Images were reviewed on a PACS workstation. The CTDIvol is 45.0 mGy a nd the DLP is 810.25 mGycm. One or more of the following dose reduction techniques were used: autom ated exposure control, adjustment of the mA and/or kV according to patient size, or use of iterative reconstruction technique. COMPARISON: MRI from 03/22/[address] from 03/21/2017 FINDINGS: Again seen is atrophy and probable chronic microvascular ischemic changes. Right parietal cortical c alcification is again seen. Large area of low attenuation in the left cerebellum consistent with inf arct is again seen. There is no evidence for hemorrhagic transformation. Mass effect on the fourth v entricle is again seen. Ventricular size is stable. No new area of infarct is seen. No midline shift is seen. No extraaxial fluid collection is seen. There is mild mucoperiosteal thickening of the ma xillary and ethmoid sinuses. IMPRESSION: No interval change. Large left cerebellar infarct without evidence of hemorrhagic transformation. At rophy and chronic microvascular ischemic changes. RPTAT: HLBE Physician Betina Date Time Electronically viewed and signed by Physician Betina on 03/23/2017 06:38 LE/
[2017-03-23 06:41] LABS: BASOPHILS % 0.4 % (0.0-2.0); EOSINOPHILS # 0.1 10^3/ul (0.0-0.5); EOSINOPHILS % 1.1 % (0.0-7.0); HEMATOCRIT 47.4 % (42.0-52.0); HEMOGLOBIN 15.6 g/dl (14.0-18.0); LYMPHOCYTES # 1.4 10^3/ul (0.8-2.9); LYMPHOCYTES % 13.5 % (15.0-51.0); MEAN CORPUSCULAR HEMOGLOBIN 29.7 pg (29.0-33.0); MEAN CORPUSCULAR HGB CONC 32.9 g/dl (32.0-37.0); MEAN CORPUSCULAR VOLUME 90.1 fl (82.0-101.0); MEAN PLATELET VOLUME 12.7 fl (7.4-10.4); MONOCYTE # 0.9 10^3/ul (0.3-0.9); MONOCYTES % 9.1 % (0.0-11.0); NEUTROPHIL # 7.8 10^3/ul (1.6-7.5); NEUTROPHILS % 75.6 % (39.0-77.0); PLATELET COUNT 205 10^3/UL (140-415); RED BLOOD COUNT 5.26 10^6/ul (4.70-6.10); RED CELL DISTRIBUTION WIDTH 13.6 % (11.5-14.5); WHITE BLOOD COUNT 10.3 10^3/ul (4.8-10.8)
[2017-03-23 06:51] LABS: CHOL/HDL RATIO 4.2 RATIO
[2017-03-23 07:50] LABS: CALCIUM 8.9 mg/dl (8.4-10.2); CREATININE 1.1 mg/dl (0.61-1.24); MAGNESIUM 2.3 mg/dl (1.7-2.5); POTASSIUM 3.7 mmol/L (3.5-5.1)
[2017-03-23] MEDS: AMLODIPINE 5 MG TAB PO SCH (09:30)
[2017-03-23] MEDS: hydrALAzine 20 MG INJ IV PRN (09:30)
[2017-03-23] MEDS: DOCUSATE SODIUM 100 MG CAP PO SCH ×2 (09:39→21:20)
[2017-03-23] MEDS: ASPIRIN 81 MG TAB PO SCH (09:39)
[2017-03-23 10:01] LABS: ADD UMIC YES; UR ASCORBIC ACID NEGATIVE (NEGATIVE); UR BILIRUBIN (Dip) NEGATIVE (NEGATIVE); UR BLOOD (Dip) 1+ mg/dL (NEGATIVE); UR CLARITY CLEAR (CLEAR); UR COLOR YELLOW (YELLOW); UR GLUCOSE (Dip) NEGATIVE (NEGATIVE); UR KETONES (Dip) 1+ mg/dL (NEGATIVE); UR LEUKOCYTE ESTERASE (Dip) NEGATIVE Leu/ul (NEGATIVE); UR NITRITE (Dip) NEGATIVE (NEGATIVE); UR RBC 1 /HPF (0-5); UR SPECIFIC GRAVITY (Dip) 1.036 (1.003-1.030); UR TOTAL PROTEIN (Dip) 1+ mg/dl (NEGATIVE); UR UROBILINOGEN (Dip) NEGATIVE (NEGATIVE)
[2017-03-23 10:20] LABS: BARBITURATES Negative (NEGATIVE); BENZODIAZEPINES Negative (NEGATIVE); CANNABINOIDS Negative (NEGATIVE); COCAINE Negative (NEGATIVE); OPIATES Negative (NEGATIVE)
--- NOTE | 2017-03-23 12:13 | CONS ---
Date/Time of Note Date/Time of Note DATE: 03/23/17 TIME: 12:11 Consult Date/Type/Reason Admit Date/Time Mar 22, 2017 at 04:30 Initial Consult Date 03/22/17 Type of Consultation: Neurology Reason for Consultation Left PICA Stroke Ordering Provider: LANI DILL Subjective headache and nausea improved Objective Vital Signs Date Time Temp Pulse Resp B/P Pulse Ox O2 Delivery O2 Flow Rate FiO2 03/23/17 10:00 98 14 147/73 94 Nasal Cannula 03/23/17 08:00 98.4 03/22/17 20:00 2.0 Intake and Output 03/22/17 03/22/17 03/23/17 14:59 22:59 06:59 Intake Total 80 ml 370 ml 300 ml Output Total 870 ml 785 ml 525 ml Balance -790 ml -415 ml -225 ml Exam arousable awake and alert oriented x3 attentive can count backwards 10 --> 1 with no difficulty no aphasia CN: KVNG, no nystagmus visual field intact no sig. facial asymmetry Motor: no drift in arms, strength equal throughout Sensory intact throughout Coordination: difficulty mild ataxia left FTN gait not tested Results/Medications Result Diagram: 03/23/17 0400 03/23/17 0400 Results 24 hrs Laboratory Tests Test 03/23/17 04:00 03/23/17 05:00 White Blood Count 10.3 Red Blood Count 5.26 Hemoglobin 15.6 Hematocrit 47.4 Mean Corpuscular Volume 90.1 Mean Corpuscular Hemoglobin 29.7 Mean Corpuscular Hemoglobin Concent 32.9 Red Cell Distribution Width 13.6 Platelet Count 205 Mean Platelet Volume 12.7 H Neutrophils % 75.6 Lymphocytes % 13.5 L Monocytes % 9.1 Eosinophils % 1.1 Basophils % 0.4 Nucleated Red Blood Cells % 0.0 Neutrophils # 7.8 H Lymphocytes # 1.4 Monocytes # 0.9 Eosinophils # 0.1 Basophils # 0.0 Nucleated Red Blood Cells # 0.0 Sodium Level 141 Potassium Level 3.7 Chloride Level 104 Carbon Dioxide Level 26 Anion Gap 15 Blood Urea Nitrogen 25 H Creatinine 1.10 Glucose Level 116 Calcium Level 8.9 Phosphorus Level 5.3 H Magnesium Level 2.3 Triglycerides Level 91 Cholesterol Level 164 LDL Cholesterol, Calculated 107 HDL Cholesterol 39 Cholesterol/HDL Ratio 4.2 Urine Color YELLOW Urine Clarity CLEAR Urine pH 6.0 Urine Specific [place] 1.036 H Urine Ketones 1+ H Urine Nitrite NEGATIVE Urine Bilirubin NEGATIVE Urine Urobilinogen NEGATIVE Urine Leukocyte Esterase NEGATIVE Urine Microscopic RBC 1 Urine Microscopic WBC 9 H Urine Hemoglobin 1+ H Urine Glucose NEGATIVE Urine Total Protein 1+ H Urine Opiates Screen Negative Urine Barbiturates Negative Urine Amphetamines Screen Negative Urine Benzodiazepines Screen Negative Urine Cocaine Screen Negative Urine Cannabinoids Negative Medications Current Medications Ondansetron HCl (Zofran Inj) 4 mg Q6H PRN IV NAUSEA AND/OR VOMITING Last administered on 03/22/17 08:24; Admin Dose 4 MG; Start 03/21/17 at 21:00 Acetaminophen (Tylenol Supp) 650 mg Q4H PRN [place] PAIN LEVEL 1-3 OR FEVER; Start 03/21/17 at 21:00 Morphine Sulfate (morphine) 2 mg Q4H PRN [place] PAIN LEVEL 7-10 Last administered on 03/22/17 00:49; Admin Dose 2 MG; Start 03/21/17 at 21:00 Acetaminophen (Tylenol Tab) 650 mg Q4H PRN PO Temp greater than 99.6F; Start 03/21/17 at 21:00 Docusate Sodium (Colace) 100 mg BID PO Last administered on 03/23/17 09:39; Admin Dose 100 MG; Start 03/21/17 at 21:00 Hydralazine HCl (Apresoline) 10 mg Q4H PRN IV ELEVATED BLOOD PRESSURE Last administered on 03/23/17 09:30; Admin Dose 10 MG; Start 03/21/17 at 21:00 Influenza Virus Vaccine (Fluzone) 0.5 ml ONCE ONCE IM* ; Start 03/24/17 at 09: 00; Stop 03/24/17 at 09:01 Mannitol 25 gm 25 gm Q4 IV* Last administered on 03/23/17 05:35; Admin Dose 25 GM; Start 03/22/17 at 13:00; Status Future Hold Mannitol/N/A (Mannitol 20%/ Evac Container) 125 ml @ 250 mls/hr Q4 IVPB Last administered on 03/23/17 09:42; Admin Dose 250 MLS/HR; Start 03/22/17 at 14:00 Aspirin (Aspirin) 81 mg DAILY PO Last administered on 03/23/17 09:39; Admin Dose 81 MG; Start 03/23/17 at 09:00 Atorvastatin Calcium (Lipitor) 40 mg HS PO Last administered on 03/22/17t 21:48 ; Admin Dose 40 MG; Start 03/22/17 at 21:00 Amlodipine Besylate (Norvasc) 5 mg DAILY PO ; Start 03/23/17 at 09:30 Famotidine (Pepcid) 20 mg DAILY PO ; Start 03/24/17 at 09:00 Assessment/Plan Chief Complaint/Hosp Course 76 year old M with no significant PMHx 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 CTA showed occlusion Left PICA Undergoing further work up. MRI Brain: 1. Acute left cerebellar hemisphere infarct again seen with mass effect upon the fourth ventricle without evidence of hydrocephalus. 2. Mild to moderate volume loss with mild chronic microvascular ischemic changes. 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
--- NOTE | 2017-03-23 15:04 | PN ---
Date/Time of Note Date/Time of Note DATE: 03/23/17 TIME: 14:56 Assessment/Plan VTE Prophylaxis VTE Prophylaxis Intervention: SCD's Lines/Catheters IV [facility]from [facility] [place] [facility] Assessment/Plan Chief Complaint/Hosp Course 1. Acute cerebellar CVA-stable at this time PT eval cont Mannitol, aspirin and statin Start Norvasc for BP control, goal SBP below 140 Neurology following ICU monitoring 2. Hypertension Start Norvasc 3. Pre-diabetes A1c 6.3 Lifestyle changes Prophylaxis: SCDs Problems: Subjective 24 Hr Interval Summary Constitutional: no complaints Exam/Review of Systems Vital Signs Vitals Vital Signs Date Time Temp Pulse Resp B/P Pulse Ox O2 Delivery O2 Flow Rate FiO2 03/23/17 12:00 98.2 91 14 159/79 95 Nasal Cannula 03/22/17 20:00 2.0 Intake and Output 03/22/17 03/22/17 03/23/17 15:00 23:00 07:00 Intake Total 80 ml 370 ml 300 ml Output Total 930 ml 825 ml 500 ml Balance -850 ml -455 ml -200 ml Exam Constitutional: alert, oriented Respiratory: clear to auscultation Cardiovascular: regular rate and rhythm Gastrointestinal: soft, No distended Musculoskeletal: nl extremities to inspection Results Result Diagram: 03/23/17 0400 03/23/17 0400 Results 24 hrs Laboratory Tests Test 03/23/17 04:00 03/23/17 05:00 White Blood Count 10.3 Red Blood Count 5.26 Hemoglobin 15.6 Hematocrit 47.4 Mean Corpuscular Volume 90.1 Mean Corpuscular Hemoglobin 29.7 Mean Corpuscular Hemoglobin Concent 32.9 Red Cell Distribution Width 13.6 Platelet Count 205 Mean Platelet Volume 12.7 H Neutrophils % 75.6 Lymphocytes % 13.5 L Monocytes % 9.1 Eosinophils % 1.1 Basophils % 0.4 Nucleated Red Blood Cells % 0.0 Neutrophils # 7.8 H Lymphocytes # 1.4 Monocytes # 0.9 Eosinophils # 0.1 Basophils # 0.0 Nucleated Red Blood Cells # 0.0 Sodium Level 141 Potassium Level 3.7 Chloride Level 104 Carbon Dioxide Level 26 Anion Gap 15 Blood Urea Nitrogen 25 H Creatinine 1.10 Glucose Level 116 Calcium Level 8.9 Phosphorus Level 5.3 H Magnesium Level 2.3 Triglycerides Level 91 Cholesterol Level 164 LDL Cholesterol, Calculated 107 HDL Cholesterol 39 Cholesterol/HDL Ratio 4.2 Urine Color YELLOW Urine Clarity CLEAR Urine pH 6.0 Urine Specific [place] 1.036 H Urine Ketones 1+ H Urine Nitrite NEGATIVE Urine Bilirubin NEGATIVE Urine Urobilinogen NEGATIVE Urine Leukocyte Esterase NEGATIVE Urine Microscopic RBC 1 Urine Microscopic WBC 9 H Urine Hemoglobin 1+ H Urine Glucose NEGATIVE Urine Total Protein 1+ H Urine Opiates Screen Negative Urine Barbiturates Negative Urine Amphetamines Screen Negative Urine Benzodiazepines Screen Negative Urine Cocaine Screen Negative Urine Cannabinoids Negative Medications Medications Current Medications Ondansetron HCl (Zofran Inj) 4 mg Q6H PRN IV NAUSEA AND/OR VOMITING Last administered on 03/22/17 08:24; Admin Dose 4 MG; Start 03/21/17 at 21:00 Acetaminophen (Tylenol Supp) 650 mg Q4H PRN [place] PAIN LEVEL 1-3 OR FEVER; Start 03/21/17 at 21:00 Morphine Sulfate (morphine) 2 mg Q4H PRN IV PAIN LEVEL 7-10 Last administered on 03/22/17 00:49; Admin Dose 2 MG; Start 03/21/17 at 21:00 Acetaminophen (Tylenol Tab) 650 mg Q4H PRN PO Temp greater than 99.6F; Start 03/21/17 at 21:00 Docusate Sodium (Colace) 100 mg BID PO Last administered on 03/23/17 09:39; Admin Dose 100 MG; Start 03/21/17 at 21:00 Hydralazine HCl (Apresoline) 10 mg Q4H PRN IV ELEVATED BLOOD PRESSURE Last administered on 03/23/17 09:30; Admin Dose 10 MG; Start 03/21/17 at 21:00 Influenza Virus Vaccine 0.5 ml 0.5 ml ONCE ONCE IM* ; Start 03/24/17 at 09:00; Stop 03/24/17 at 09:01 Mannitol/N/A (Mannitol 20%/ Evac Container) 125 ml @ 250 mls/hr Q4 IVPB Last administered on 03/23/17 09:42; Admin Dose 250 MLS/HR; Start 03/22/17 at 14:00 ; Stop 03/26/17 at 09:29 Aspirin (Aspirin) 81 mg DAILY PO Last administered on 03/23/17 09:39; Admin Dose 81 MG; Start 03/23/17 at 09:00 Amlodipine Besylate (Norvasc) 5 mg DAILY PO Last administered on 03/23/17t 09: 30; Admin Dose 5 MG; Start 03/23/17 at 09:30 Famotidine (Pepcid) 20 mg DAILY PO ; Start 03/24/17 at 09:00 Atorvastatin Calcium (Lipitor) 80 mg HS PO ; Start 03/23/17 at 21:00 VEGA BRAUN Mar 23, 2017 15:04
--- NOTE | 2017-03-23 19:38 | CONS ---
Date/Time of Note Date/Time of Note DATE: 03/23/17 TIME: 19:34 Consultation Date/Type/Reason Admit Date/Time Mar 22, 2017 at 04:30 Initial Consult Date 03/22/17 Type of Consultation: Neurology Referring Provider: LANI DILL 24 HR Interval Summary Free Text/Dictation Patient is awake and alert. He is moving all extremities. Family reports that he is "more himself". Serum Na141. CT unchanged. His CVA was probably on Thursday (~5 days ago) and I do not think at this point there is likely to be significant further swelling of the posterior fossa to cause obstruction or to mandate craniectomy. In my opinion he is clear to trnasfer out of ICU, dc mannitol, and begin ASA. I will sign off for now. Please feel free to re-c/s. Exam/Review of Systems Vital Signs Vitals Vital Signs Date Time Temp Pulse Resp B/P Pulse Ox O2 Delivery O2 Flow Rate FiO2 03/23/17 18:00 92 14 133/68 93 Nasal Cannula 03/23/17 16:00 98.4 03/22/17 20:00 2.0 Intake and Output 03/22/17 03/22/17 03/23/17 15:00 23:00 07:00 Intake Total 80 ml 370 ml 300 ml Output Total 930 ml 825 ml 500 ml Balance -850 ml -455 ml -200 ml Results Result Diagram: 03/23/17 0400 03/23/17 0400 Results 24 hrs Laboratory Tests Test 03/23/17 04:00 03/23/17 05:00 White Blood Count 10.3 Red Blood Count 5.26 Hemoglobin 15.6 Hematocrit 47.4 Mean Corpuscular Volume 90.1 Mean Corpuscular Hemoglobin 29.7 Mean Corpuscular Hemoglobin Concent 32.9 Red Cell Distribution Width 13.6 Platelet Count 205 Mean Platelet Volume 12.7 H Neutrophils % 75.6 Lymphocytes % 13.5 L Monocytes % 9.1 Eosinophils % 1.1 Basophils % 0.4 Nucleated Red Blood Cells % 0.0 Neutrophils # 7.8 H Lymphocytes # 1.4 Monocytes # 0.9 Eosinophils # 0.1 Basophils # 0.0 Nucleated Red Blood Cells # 0.0 Sodium Level 141 Potassium Level 3.7 Chloride Level 104 Carbon Dioxide Level 26 Anion Gap 15 Blood Urea Nitrogen 25 H Creatinine 1.10 Glucose Level 116 Calcium Level 8.9 Phosphorus Level 5.3 H Magnesium Level 2.3 Triglycerides Level 91 Cholesterol Level 164 LDL Cholesterol, Calculated 107 HDL Cholesterol 39 Cholesterol/HDL Ratio 4.2 Urine Color YELLOW Urine Clarity CLEAR Urine pH 6.0 Urine Specific [place] 1.036 H Urine Ketones 1+ H Urine Nitrite NEGATIVE Urine Bilirubin NEGATIVE Urine Urobilinogen NEGATIVE Urine Leukocyte Esterase NEGATIVE Urine Microscopic RBC 1 Urine Microscopic WBC 9 H Urine Hemoglobin 1+ H Urine Glucose NEGATIVE Urine Total Protein 1+ H Urine Opiates Screen Negative Urine Barbiturates Negative Urine Amphetamines Screen Negative Urine Benzodiazepines Screen Negative Urine Cocaine Screen Negative Urine Cannabinoids Negative Medications Medications Current Medications Ondansetron HCl (Zofran Inj) 4 mg Q6H PRN IV NAUSEA AND/OR VOMITING Last administered on 03/22/17 08:24; Admin Dose 4 MG; Start 03/21/17 at 21:00 Acetaminophen (Tylenol Supp) 650 mg Q4H PRN [place] PAIN LEVEL 1-3 OR FEVER; Start 03/21/17 at 21:00 Morphine Sulfate (morphine) 2 mg Q4H PRN IV PAIN LEVEL 7-10 Last administered on 03/22/17 00:49; Admin Dose 2 MG; Start 03/21/17 at 21:00 Acetaminophen (Tylenol Tab) 650 mg Q4H PRN PO Temp greater than 99.6F; Start 03/21/17 at 21:00 Docusate Sodium (Colace) 100 mg BID PO Last administered on 03/23/17 09:39; Admin Dose 100 MG; Start 03/21/17 at 21:00 Hydralazine HCl (Apresoline) 10 mg Q4H PRN IV ELEVATED BLOOD PRESSURE Last administered on 03/23/17 09:30; Admin Dose 10 MG; Start 03/21/17 at 21:00 Influenza Virus Vaccine 0.5 ml 0.5 ml ONCE ONCE IM* ; Start 03/24/17 at 09:00; Stop 03/24/17 at 09:01 Mannitol/N/A (Mannitol 20%/ Evac Container) 125 ml @ 250 mls/hr Q4 IVPB Last administered on 03/23/17 17:00; Admin Dose 250 MLS/HR; Start 03/22/17 at 14:00 ; Stop 03/26/17 at 09:29 Aspirin (Aspirin) 81 mg DAILY PO Last administered on 03/23/17 09:39; Admin Dose 81 MG; Start 03/23/17 at 09:00 Amlodipine Besylate (Norvasc) 5 mg DAILY PO Last administered on 03/23/17 09: 30; Admin Dose 5 MG; Start 03/23/17 at 09:30 Famotidine (Pepcid) 20 mg DAILY PO ; Start 03/24/17 at 09:00 Atorvastatin Calcium (Lipitor) 80 mg HS PO ; Start 03/23/17 at 21:00 AURA DIAZ MD Mar 23, 2017 19:38
[2017-03-23] MEDS: ATORVASTATIN 80 MG TAB PO SCH (21:20)
[2017-03-24] VITALS (29 sets, daily range): BP systolic 109–160; BP diastolic 55–98; PULSE 60–105; RESP 11–22
[2017-03-24] MEDS: MANNITOL 20% IVPB SCH ×6 (01:31→21:00)
[2017-03-24] MEDS: EVAC CONTAINER IVPB SCH ×6 (01:31→21:00)
[2017-03-24 05:22] LABS: BASOPHILS % 0.3 % (0.0-2.0); EOSINOPHILS # 0.3 10^3/ul (0.0-0.5); EOSINOPHILS % 2.8 % (0.0-7.0); HEMATOCRIT 44.6 % (42.0-52.0); HEMOGLOBIN 14.6 g/dl (14.0-18.0); LYMPHOCYTES # 1.6 10^3/ul (0.8-2.9); LYMPHOCYTES % 15.8 % (15.0-51.0); MEAN CORPUSCULAR HEMOGLOBIN 29.6 pg (29.0-33.0); MEAN CORPUSCULAR HGB CONC 32.7 g/dl (32.0-37.0); MEAN CORPUSCULAR VOLUME 90.3 fl (82.0-101.0); MEAN PLATELET VOLUME 12.3 fl (7.4-10.4); MONOCYTES % 9.7 % (0.0-11.0); NEUTROPHIL # 7.2 10^3/ul (1.6-7.5); NEUTROPHILS % 71.1 % (39.0-77.0); PLATELET COUNT 188 10^3/UL (140-415); RED BLOOD COUNT 4.94 10^6/ul (4.70-6.10); RED CELL DISTRIBUTION WIDTH 13.2 % (11.5-14.5); WHITE BLOOD COUNT 10.1 10^3/ul (4.8-10.8)
[2017-03-24 05:55] LABS: CALCIUM 8.7 mg/dl (8.4-10.2); CREATININE 1.07 mg/dl (0.61-1.24); POTASSIUM 3.5 mmol/L (3.5-5.1)
[2017-03-24] MEDS: hydrALAzine 20 MG INJ IV PRN (07:51)
[2017-03-24] MEDS: ASPIRIN 81 MG TAB PO SCH (08:06)
[2017-03-24] MEDS: AMLODIPINE 5 MG TAB PO SCH (08:06)
[2017-03-24] MEDS: DOCUSATE SODIUM 100 MG CAP PO SCH ×2 (08:07→21:12)
[2017-03-24] MEDS: FAMOTIDINE 20 MG TAB PO SCH (08:07)
[2017-03-24] MEDS ORDERED: INFLUENZA VIRUS VACCINE 0.5 ML (DISPENSING) IM* ONE (09:00)
--- NOTE | 2017-03-24 10:50 | CONS ---
Date/Time of Note Date/Time of Note DATE: 03/24/17 TIME: 10:48 Consult Date/Type/Reason Admit Date/Time Mar 22, 2017 at 04:30 Initial Consult Date 03/22/17 Type of Consultation: Neurology Reason for Consultation Left PICA CVA Ordering Provider: LANI DILL Subjective hiccups today at bedside Objective Vital Signs Date Time Temp Pulse Resp B/P Pulse Ox O2 Delivery O2 Flow Rate FiO2 03/24/17 08:00 96 03/24/17 06:00 11 157/98 94 Nasal Cannula 03/24/17 04:00 97.8 03/23/17 20:00 2.0 Intake and Output 03/23/17 03/23/17 03/24/17 15:00 23:00 07:00 Intake Total 1080 ml 370 ml 370 ml Output Total 825 ml 650 ml 550 ml Balance 255 ml -280 ml -180 ml Exam arousable awake and alert oriented x3 attentive can count backwards 10 --> 1 with no difficulty no aphasia CN: KVNG, no nystagmus visual field intact no sig. facial asymmetry Motor: no drift in arms, strength equal throughout Sensory intact throughout Coordination: difficulty mild ataxia left FTN gait not tested Results/Medications Result Diagram: 03/24/17 0430 03/24/17 0430 Results 24 hrs Laboratory Tests Test 03/24/17 04:30 White Blood Count 10.1 Red Blood Count 4.94 Hemoglobin 14.6 Hematocrit 44.6 Mean Corpuscular Volume 90.3 Mean Corpuscular Hemoglobin 29.6 Mean Corpuscular Hemoglobin Concent 32.7 Red Cell Distribution Width 13.2 Platelet Count 188 Mean Platelet Volume 12.3 H Neutrophils % 71.1 Lymphocytes % 15.8 Monocytes % 9.7 Eosinophils % 2.8 Basophils % 0.3 Nucleated Red Blood Cells % 0.0 Neutrophils # 7.2 Lymphocytes # 1.6 Monocytes # 1.0 H Eosinophils # 0.3 Basophils # 0.0 Nucleated Red Blood Cells # 0.0 Sodium Level 139 Potassium Level 3.5 Chloride Level 104 Carbon Dioxide Level 29 Anion Gap 10 # Blood Urea Nitrogen 26 H Creatinine 1.07 Glucose Level 116 Calcium Level 8.7 Medications Current Medications Ondansetron HCl (Zofran Inj) 4 mg Q6H PRN IV NAUSEA AND/OR VOMITING Last administered on 03/22/17t 08:24; Admin Dose 4 MG; Start 03/21/17 at 21:00 Acetaminophen (Tylenol Supp) 650 mg Q4H PRN [place] PAIN LEVEL 1-3 OR FEVER; Start 03/21/17 at 21:00 Morphine Sulfate (morphine) 2 mg Q4H PRN IV PAIN LEVEL 7-10 Last administered on 03/22/17 00:49; Admin Dose 2 MG; Start 03/21/17 at 21:00 Acetaminophen (Tylenol Tab) 650 mg Q4H PRN PO Temp greater than 99.6F; Start 03/21/17 at 21:00 Docusate Sodium (Colace) 100 mg BID PO Last administered on 03/24/17 08:07; Admin Dose 100 MG; Start 03/21/17 at 21:00 Hydralazine HCl 10 mg 10 mg Q4H PRN IV ELEVATED BLOOD PRESSURE Last administered on 03/24/17 07:51; Admin Dose 10 MG; Start 03/21/17 at 21:00 Mannitol/N/A (Mannitol 20%/ Evac Container) 125 ml @ 250 mls/hr Q4 IVPB Last administered on 03/24/17 05:47; Admin Dose 250 MLS/HR; Start 03/22/17 at 14:00 ; Stop 03/26/17 at 09:29 Aspirin (Aspirin) 81 mg DAILY PO Last administered on 03/24/17 08:06; Admin Dose 81 MG; Start 03/23/17 at 09:00 Amlodipine Besylate (Norvasc) 5 mg DAILY PO Last administered on 03/24/17 08: 06; Admin Dose 5 MG; Start 03/23/17 at 09:30 Famotidine (Pepcid) 20 mg DAILY PO Last administered on 03/24/17 08:07; Admin Dose 20 MG; Start 03/24/17 at 09:00 Atorvastatin Calcium (Lipitor) 80 mg HS PO Last administered on 03/23/17 21:20 ; Admin Dose 80 MG; Start 03/23/17 at 21:00 Assessment/Plan Chief Complaint/Hosp Course 76 year old M with no significant PMHx 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 CTA showed occlusion Left PICA Undergoing further work up. MRI Brain: 1. Acute left cerebellar hemisphere infarct again seen with mass effect upon the fourth ventricle without evidence of hydrocephalus. 2. Mild to moderate volume loss with mild chronic microvascular ischemic changes. 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
--- NOTE | 2017-03-24 11:26 | RADRPT ---
PROCEDURE: CT Brain without contrast. CLINICAL INDICATION: Follow-up cerebellar infarct. Increase ICP. TECHNIQUE: A CT of the brain was performed on a multidetector CT scanner utilizing axial sections from the skull base through the vertex without contrast. Images were reviewed on a high-resolution [employer] workstation. Exam CTDI = 43.58, and 45.01 mGy and the DLP = 810.25 mGy-cm. One or more of the following dose reduction techniques were used: Automated exposure control Adjustment of the mA and/or kV according to patient size. Use of iterative reconstruction technique. COMPARISON: CT head 03/23/2017. FINDINGS: Mild to moderate diffuse cerebral and cerebellar atrophy is present. There is proportionate dilatat ion of the ventricular system and sulci in a symmetric fashion. There is prominence of the extraaxia l spaces secondary to atrophy. There is no evidence of intracranial hemorrhage, mass effect or midli ne shift. Redemonstrated is a large area of evolving infarct involving the left inferior cerebellar hemisphere. There is no hemorrhagic conversion. Minimal mass effect upon the fourth ventricle remain s stable. No abnormal intra-axial or extra-axial fluid collections are seen. There is a punctate josh cification in the right parietal lobe. The density of the brain is normal and the peña/white matter differentiation is well preserved. Mild patchy diffuse deep white matter microangiopathic ischemic change is seen. The osseous structures are unremarkable. Paranasal sinuses are clear. Vascular c alcifications are identified. IMPRESSION: 1. Evolving left cerebellar infarct with no evidence of hemorrhagic conversion or significant assoc iated mass effect. No change in ventricular size and configuration. 2. Mild to moderate generalized atrophy. Mild microangiopathic ischemic change. 3. Intracranial atherosclerosis. RPTAT: BB .Lexus Carrillo MD, MD Date Time Electronically viewed and signed by .Lexus Carrillo MD, MD on 03/24/2017 11:25 .O/
--- NOTE | 2017-03-24 14:59 | PN ---
Date/Time of Note Date/Time of Note DATE: 03/24/17 TIME: 14:59 Assessment/Plan VTE Prophylaxis VTE Prophylaxis Intervention: SCD's Lines/Catheters IV [facility] Saline Lock Assessment/Plan Chief Complaint/Hosp Course 1. 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 Hypertension Continue Norvasc 3. Pre-diabetes A1c 6.3 Lifestyle changes Prophylaxis: SCDs Problems: Subjective 24 Hr Interval Summary Constitutional: no complaints Exam/Review of Systems Vital Signs Vitals Vital Signs Date Time Temp Pulse Resp B/P Pulse Ox O2 Delivery O2 Flow Rate FiO2 03/24/17 13:00 88 14 160/88 95 Nasal Cannula 03/24/17 12:00 98.4 03/23/17 20:00 2.0 Intake and Output 03/23/17 03/23/17 03/24/17 15:00 23:00 07:00 Intake Total 1080 ml 370 ml 370 ml Output Total 825 ml 650 ml 610 ml Balance 255 ml -280 ml -240 ml Exam Constitutional: alert, oriented Respiratory: clear to auscultation Cardiovascular: regular rate and rhythm Gastrointestinal: soft, No distended Musculoskeletal: nl extremities to inspection Results Result Diagram: 03/24/1742903/24/17 0430 Results 24 hrs Laboratory Tests Test 03/24/17 04:30 White Blood Count 10.1 Red Blood Count 4.94 Hemoglobin 14.6 Hematocrit 44.6 Mean Corpuscular Volume 90.3 Mean Corpuscular Hemoglobin 29.6 Mean Corpuscular Hemoglobin Concent 32.7 Red Cell Distribution Width 13.2 Platelet Count 188 Mean Platelet Volume 12.3 H Neutrophils % 71.1 Lymphocytes % 15.8 Monocytes % 9.7 Eosinophils % 2.8 Basophils % 0.3 Nucleated Red Blood Cells % 0.0 Neutrophils # 7.2 Lymphocytes # 1.6 Monocytes # 1.0 H Eosinophils # 0.3 Basophils # 0.0 Nucleated Red Blood Cells # 0.0 Sodium Level 139 Potassium Level 3.5 Chloride Level 104 Carbon Dioxide Level 29 Anion Gap 10 # Blood Urea Nitrogen 26 H Creatinine 1.07 Glucose Level 116 Calcium Level 8.7 Medications Medications Current Medications Ondansetron HCl (Zofran Inj) 4 mg Q6H PRN IV NAUSEA AND/OR VOMITING Last administered on 03/22/17 08:24; Admin Dose 4 MG; Start 03/21/17 at 21:00 Acetaminophen (Tylenol Supp) 650 mg Q4H PRN [place] PAIN LEVEL 1-3 OR FEVER; Start 03/21/17 at 21:00 Morphine Sulfate (morphine) 2 mg Q4H PRN IV PAIN LEVEL 7-10 Last administered on 03/22/17 00:49; Admin Dose 2 MG; Start 03/21/17 at 21:00 Acetaminophen (Tylenol Tab) 650 mg Q4H PRN PO Temp greater than 99.6F; Start 03/21/17 at 21:00 Docusate Sodium (Colace) 100 mg BID PO Last administered on 03/24/17 08:07; Admin Dose 100 MG; Start 03/21/17 at 21:00 Hydralazine HCl 10 mg 10 mg Q4H PRN IV ELEVATED BLOOD PRESSURE Last administered on 03/24/17 07:51; Admin Dose 10 MG; Start 03/21/17 at 21:00 Mannitol/N/A (Mannitol 20%/ Evac Container) 125 ml @ 250 mls/hr Q4 IVPB Last administered on 03/24/17 09:00; Admin Dose 250 MLS/HR; Start 03/22/17 at 14:00 ; Stop 03/26/17 at 09:29 Aspirin (Aspirin) 81 mg DAILY PO Last administered on 03/24/17 08:06; Admin Dose 81 MG; Start 03/23/17 at 09:00 Amlodipine Besylate (Norvasc) 5 mg DAILY PO Last administered on 03/24/17 08: 06; Admin Dose 5 MG; Start 03/23/17 at 09:30 Famotidine (Pepcid) 20 mg DAILY PO Last administered on 03/24/17 08:07; Admin Dose 20 MG; Start 03/24/17 at 09:00 Atorvastatin Calcium (Lipitor) 80 mg HS PO Last administered on 03/23/17 21:20 ; Admin Dose 80 MG; Start 03/23/17 at 21:00 VEGA BRAUN Mar 24, 2017 14:59
[2017-03-24] MEDS: ATORVASTATIN 80 MG TAB PO SCH (21:12)
[2017-03-25] VITALS (20 sets, daily range): BP systolic 109–163; BP diastolic 58–98; PULSE 71–90; RESP 10–18
[2017-03-25] MEDS: MANNITOL 20% IVPB SCH ×3 (01:37→09:16)
[2017-03-25] MEDS: EVAC CONTAINER IVPB SCH ×3 (01:37→09:16)
[2017-03-25 05:55] LABS: BASOPHILS % 0.3 % (0.0-2.0); EOSINOPHILS # 0.3 10^3/ul (0.0-0.5); EOSINOPHILS % 2.7 % (0.0-7.0); HEMATOCRIT 44.7 % (42.0-52.0); HEMOGLOBIN 14.6 g/dl (14.0-18.0); LYMPHOCYTES # 1.9 10^3/ul (0.8-2.9); LYMPHOCYTES % 19.9 % (15.0-51.0); MEAN CORPUSCULAR HEMOGLOBIN 29.4 pg (29.0-33.0); MEAN CORPUSCULAR HGB CONC 32.7 g/dl (32.0-37.0); MEAN CORPUSCULAR VOLUME 90.1 fl (82.0-101.0); MEAN PLATELET VOLUME 12.4 fl (7.4-10.4); MONOCYTE # 0.9 10^3/ul (0.3-0.9); NEUTROPHIL # 6.3 10^3/ul (1.6-7.5); NEUTROPHILS % 66.9 % (39.0-77.0); PLATELET COUNT 190 10^3/UL (140-415); RED BLOOD COUNT 4.96 10^6/ul (4.70-6.10); RED CELL DISTRIBUTION WIDTH 13.2 % (11.5-14.5); WHITE BLOOD COUNT 9.4 10^3/ul (4.8-10.8)
[2017-03-25 06:32] LABS: CALCIUM 8.6 mg/dl (8.4-10.2); CREATININE 1.06 mg/dl (0.61-1.24); MAGNESIUM 2.2 mg/dl (1.7-2.5); POTASSIUM 3.5 mmol/L (3.5-5.1)
[2017-03-25] MEDS: FAMOTIDINE 20 MG TAB PO SCH (09:01)
[2017-03-25] MEDS: AMLODIPINE 5 MG TAB PO SCH (09:01)
[2017-03-25] MEDS: DOCUSATE SODIUM 100 MG CAP PO SCH ×2 (09:01→21:23)
[2017-03-25] MEDS: ASPIRIN 81 MG TAB PO SCH (09:02)
[2017-03-25] MEDS: hydrALAzine 20 MG INJ IV PRN (09:04)
--- NOTE | 2017-03-25 10:25 | CONS ---
Date/Time of Note Date/Time of Note DATE: 03/25/17 TIME: 10:21 Consult Date/Type/Reason Admit Date/Time Mar 22, 2017 at 04:30 Initial Consult Date 03/22/17 Type of Consultation: Neurology Reason for Consultation Left PICA infarct Ordering Provider: LANI DILL Subjective improving symptoms less nausea and headaches Objective Vital Signs Date Time Temp Pulse Resp B/P Pulse Ox O2 Delivery O2 Flow Rate FiO2 03/25/17 08:30 74 10 159/88 94 Nasal Cannula 03/25/17 08:00 98.6 03/23/17 20:00 2.0 Intake and Output 03/24/17 03/24/17 03/25/17 14:59 22:59 06:59 Intake Total 480 ml 610 ml 470 ml Output Total 550 ml 455 ml 495 ml Balance -70 ml 155 ml -25 ml Exam arousable awake and alert oriented x3 attentive can count backwards 10 --> 1 with no difficulty no aphasia CN: KVNG, no nystagmus visual field intact no sig. facial asymmetry Motor: no drift in arms, strength equal throughout Sensory intact throughout Coordination: ataxia improved gait not tested Results/Medications Result Diagram: 03/25/17 0506 03/25/17 0506 Results 24 hrs Laboratory Tests Test 03/25/17 05:06 White Blood Count 9.4 Red Blood Count 4.96 Hemoglobin 14.6 Hematocrit 44.7 Mean Corpuscular Volume 90.1 Mean Corpuscular Hemoglobin 29.4 Mean Corpuscular Hemoglobin Concent 32.7 Red Cell Distribution Width 13.2 Platelet Count 190 Mean Platelet Volume 12.4 H Neutrophils % 66.9 Lymphocytes % 19.9 Monocytes % 10.0 Eosinophils % 2.7 Basophils % 0.3 Nucleated Red Blood Cells % 0.0 Neutrophils # 6.3 Lymphocytes # 1.9 Monocytes # 0.9 Eosinophils # 0.3 Basophils # 0.0 Nucleated Red Blood Cells # 0.0 Sodium Level 139 Potassium Level 3.5 Chloride Level 103 Carbon Dioxide Level 28 Anion Gap 12 Blood Urea Nitrogen 28 H Creatinine 1.06 Glucose Level 114 Calcium Level 8.6 Phosphorus Level 4.5 Magnesium Level 2.2 Medications Current Medications Ondansetron HCl (Zofran Inj) 4 mg Q6H PRN IV NAUSEA AND/OR VOMITING Last administered on 03/22/17t 08:24; Admin Dose 4 MG; Start 03/21/17 at 21:00 Acetaminophen (Tylenol Supp) 650 mg Q4H PRN NV PAIN LEVEL 1-3 OR FEVER; Start 03/21/17 at 21:00 Morphine Sulfate (morphine) 2 mg Q4H PRN IV PAIN LEVEL 7-10 Last administered on 03/22/17 00:49; Admin Dose 2 MG; Start 03/21/17 at 21:00 Acetaminophen (Tylenol Tab) 650 mg Q4H PRN PO Temp greater than 99.6F; Start 03/21/17 at 21:00 Docusate Sodium (Colace) 100 mg BID PO Last administered on 03/25/17 09:01; Admin Dose 100 MG; Start 03/21/17 at 21:00 Hydralazine HCl 10 mg 10 mg Q4H PRN IV ELEVATED BLOOD PRESSURE Last administered on 03/25/17 09:04; Admin Dose 10 MG; Start 03/21/17 at 21:00 Mannitol/N/A (Mannitol 20%/ Evac Container) 125 ml @ 250 mls/hr Q4 IVPB Last administered on 03/25/17 09:16; Admin Dose 250 MLS/HR; Start 03/22/17 at 14:00 ; Stop 03/26/17 at 09:29 Aspirin (Aspirin) 81 mg DAILY PO Last administered on 03/25/17 09:02; Admin Dose 81 MG; Start 03/23/17 at 09:00 Amlodipine Besylate (Norvasc) 5 mg DAILY PO Last administered on 03/25/17 09: 01; Admin Dose 5 MG; Start 03/23/17 at 09:30 Famotidine (Pepcid) 20 mg DAILY PO Last administered on 03/25/17 09:01; Admin Dose 20 MG; Start 03/24/17 at 09:00 Atorvastatin Calcium (Lipitor) 80 mg HS PO Last administered on 03/24/17 21: 12; Admin Dose 80 MG; Start 03/23/17 at 21:00 Assessment/Plan Chief Complaint/Hosp Course 76 year old M with no significant PMHx 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 CTA showed occlusion Left PICA Undergoing further work up. MRI Brain: 1. Acute left cerebellar hemisphere infarct again seen with mass effect upon the fourth ventricle without evidence of hydrocephalus. 2. Mild to moderate volume loss with mild chronic microvascular ischemic changes. Recommendations: repeat Head CT this am for hiccups concerning for elevated ICP, if stable may tx out of ICU to tele SBP less than 140 continue aspirin ECHO w bubble is pending LDL is 107, HBA1C 6.3% Lipitor 80 mg qhs pre-diabetes hematology nurse educator consultation dietary modification Tele monitoring for afib DVT ppx PT/OT/Speech eval will follow please contact me for any decline in his status may tx to tele today Problems: PRASANNA MAN MD Mar 25, 2017 10:25
--- NOTE | 2017-03-25 16:42 | RADRPT ---
Echocardiogram Report Patient Name: LAZARO ALEMAN Gender: Male Date: 1940 Study Date: 22-Mar-2017 Activities Leader: Katie Villavicencio RDCS Location: [address] [place] [address]. Physician: LANI DILL Quality: Technically Difficult Study Procedures: Transthoracic echocardiogram with complete 2D, M-Mode, and doppler examination. Indications: stroke w/ bubble study. 2D/M Mode Doppler Measurement Value Normal Ranges Measurement Value Normal Ranges LVIDd 2D 4.0 3.5 - 5.6 cm AV Peak Cecilio 1.5 m/sec LVIDs 2D 2.6 2.1 - 4.1 cm AV Peak PG 9.0 mmHg FS 2D 33.9 % LVOT Peak Cecilio 1.0 m/sec LVPWd 2D 1.3 0.6 - 1.1 cm LVOT Peak PG 4.0 mmHg IVSd 2D 1.3 0.6 - 1.1 cm MV E Peak Cecilio 0.5 m/sec IVS/LVPW 2D 1.0 MV A Peak Cecilio 0.8 m/sec AoR Diam 2D 2.8 2.0 - 3.7 cm MV E/A 0.6 LA/Ao 2D 1 0 - 1 MV Decel Time 183 msec EDV 2D 61.6 cm3 MV E/A 0.6 ESV 2D 17.8 cm3 TR Peak Cecilio 2.0 m/sec LA Dimen 2D 3.0 2.3 - 4.0 cm TR Peak PG 17.0 mmHg RVSP 20.0 mmHg Findings Left Ventricle: Normal left ventricular systolic function. Normal left ventricular cavity size. Mild concentric left ventricular hypertrophy. Ejection fraction is visually estimated at 65 %. Tissue Doppler/Mitral Doppler indices are consistent with impaired relaxation (Stage I diastolic dysfunction). Right Ventricle: Normal right ventricular size. Normal right ventricular systolic function. Left Atrium: There is mild enlargement of left atrium. Right Atrium: The right atrium is normal in size. Atrial Septum: Bubble study was performed with and with out valsalva indicating no evidence of intra atrial shunt. Mitral Valve: Normal appearance and function of the mitral valve with trace physiologic regurgitation. Aortic Valve: No significant aortic stenosis or insufficiency. Aortic cusps appear mildly calcified. Tricuspid Valve: Normal appearance of the tricuspid valve. Estimated peak PA systolic pressure 20 mmHg. There is trace tricuspid regurgitation. Pulmonic Valve: Pulmonic valve not well visualized. Pericardium: Normal pericardium with no significant pericardial effusion. Aorta: Normal aortic root. IVC: Normal size and normal respiratory collapse consistent with normal right atrial pressure. Conclusions Normal left ventricular systolic function. Normal left ventricular cavity size. Mild concentric left ventricular hypertrophy. Ejection fraction is visually estimated at 65 %. Tissue Doppler/Mitral Doppler indices are consistent with impaired relaxation (Stage I diastolic dysfunction). No significant valvular stenosis or regurgitation seen. Bubble study was performed with and without valsalva indicating no evidence of intra atrial shunt. Estimated peak PA systolic pressure 20 mmHg based on RA pressure of 3 mmHg. Electronically Signed By: Wade White 25-Mar-2017 16:40:55 -0700 Patient Name: LAZARO ALEMAN Study Date: 22-Mar-[id number]
--- NOTE | 2017-03-25 19:21 | PN ---
Date/Time of Note Date/Time of Note DATE: 03/25/17 TIME: 19:20 Assessment/Plan VTE Prophylaxis VTE Prophylaxis Intervention: SCD's Lines/Catheters IV Catheter Type (from Nrs): Saline Lock Assessment/Plan Chief Complaint/Hosp Course 1. 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 Hypertension-stable Continue Norvasc 3. Pre-diabetes A1c 6.3 Lifestyle changes Prophylaxis: SCDs Problems: Subjective 24 Hr Interval Summary Constitutional: no complaints Exam/Review of Systems Vital Signs Vitals Vital Signs Date Time Temp Pulse Resp B/P Pulse Ox O2 Delivery O2 Flow Rate FiO2 03/25/17 16:36 81 03/25/17 15:30 98.2 16 142/68 96 03/25/17 11:00 Nasal Cannula 03/23/17 20:00 2.0 Intake and Output 03/24/17 03/24/17 03/25/17 15:00 23:00 07:00 Intake Total 480 ml 610 ml 470 ml Output Total 530 ml 490 ml 540 ml Balance -50 ml 120 ml -70 ml Exam Constitutional: alert, oriented Respiratory: clear to auscultation Cardiovascular: regular rate and rhythm Gastrointestinal: soft, No distended Musculoskeletal: nl extremities to inspection Results Result Diagram: 03/25/17 0506 03/25/17 0506 Results 24 hrs Laboratory Tests Test 03/25/17 05:06 White Blood Count 9.4 Red Blood Count 4.96 Hemoglobin 14.6 Hematocrit 44.7 Mean Corpuscular Volume 90.1 Mean Corpuscular Hemoglobin 29.4 Mean Corpuscular Hemoglobin Concent 32.7 Red Cell Distribution Width 13.2 Platelet Count 190 Mean Platelet Volume 12.4 H Neutrophils % 66.9 Lymphocytes % 19.9 Monocytes % 10.0 Eosinophils % 2.7 Basophils % 0.3 Nucleated Red Blood Cells % 0.0 Neutrophils # 6.3 Lymphocytes # 1.9 Monocytes # 0.9 Eosinophils # 0.3 Basophils # 0.0 Nucleated Red Blood Cells # 0.0 Sodium Level 139 Potassium Level 3.5 Chloride Level 103 Carbon Dioxide Level 28 Anion Gap 12 Blood Urea Nitrogen 28 H Creatinine 1.06 Glucose Level 114 Calcium Level 8.6 Phosphorus Level 4.5 Magnesium Level 2.2 Medications Medications Current Medications Ondansetron HCl (Zofran Inj) 4 mg Q6H PRN IV NAUSEA AND/OR VOMITING Last administered on 03/22/17 08:24; Admin Dose 4 MG; Start 03/21/17 at 21:00 Acetaminophen (Tylenol Supp) 650 mg Q4H PRN [place] PAIN LEVEL 1-3 OR FEVER; Start 03/21/17 at 21:00 Morphine Sulfate (morphine) 2 mg Q4H PRN IV PAIN LEVEL 7-10 Last administered on 03/22/17 00:49; Admin Dose 2 MG; Start 03/21/17 at 21:00 Acetaminophen (Tylenol Tab) 650 mg Q4H PRN PO Temp greater than 99.6F; Start 03/21/17 at 21:00 Docusate Sodium (Colace) 100 mg BID PO Last administered on 03/25/17 09:01; Admin Dose 100 MG; Start 03/21/17 at 21:00 Hydralazine HCl (Apresoline) 10 mg Q4H PRN IV ELEVATED BLOOD PRESSURE Last administered on 03/25/17 09:04; Admin Dose 10 MG; Start 03/21/17 at 21:00 Aspirin (Aspirin) 81 mg DAILY PO Last administered on 03/25/17 09:02; Admin Dose 81 MG; Start 03/23/17 at 09:00 Amlodipine Besylate (Norvasc) 5 mg DAILY PO Last administered on 03/25/17 09: 01; Admin Dose 5 MG; Start 03/23/17 at 09:30 Famotidine (Pepcid) 20 mg DAILY PO Last administered on 03/25/17 09:01; Admin Dose 20 MG; Start 03/24/17 at 09:00 Atorvastatin Calcium (Lipitor) 80 mg HS PO Last administered on 03/24/17 21: 12; Admin Dose 80 MG; Start 03/23/17 at 21:00 VEGA BRAUN Mar 25, 2017 19:21
[2017-03-25] MEDS: ATORVASTATIN 80 MG TAB PO SCH (21:23)
[2017-03-26] VITALS (13 sets, daily range): BP systolic 128–154; BP diastolic 60–85; PULSE 40–97; RESP 18–19
[2017-03-26] MEDS: AMLODIPINE 5 MG TAB PO SCH (08:45)
[2017-03-26] MEDS: FAMOTIDINE 20 MG TAB PO SCH (08:45)
[2017-03-26] MEDS: ASPIRIN 81 MG TAB PO SCH (08:45)
[2017-03-26] MEDS: DOCUSATE SODIUM 100 MG CAP PO SCH ×2 (08:46→20:53)
--- NOTE | 2017-03-26 11:57 | CONS ---
Date/Time of Note Date/Time of Note DATE: 03/26/17 TIME: 11:55 Consult Date/Type/Reason Admit Date/Time Mar 22, 2017 at 04:30 Initial Consult Date 03/22/17 Type of Consultation: Neurology Reason for Consultation Left PICA infarct Ordering Provider: LANI DILL Subjective tx to tele remains stable Objective Vital Signs Date Time Temp Pulse Resp B/P Pulse Ox O2 Delivery O2 Flow Rate FiO2 03/26/17 11:19 98.2 87 19 139/75 93 03/25/17 11:00 Nasal Cannula 03/23/17 20:00 2.0 Intake and Output 03/25/17 03/25/17 03/26/17 15:00 23:00 07:00 Intake Total 295 ml 250 ml 200 ml Output Total 530 ml 300 ml Balance -235 ml -50 ml 200 ml Exam arousable awake and alert oriented x3 attentive can count backwards 10 --> 1 with no difficulty no aphasia CN: KVNG, no nystagmus visual field intact no sig. facial asymmetry Motor: no drift in arms, strength equal throughout Sensory intact throughout Coordination: ataxia improved gait not tested Results/Medications Result Diagram: 03/25/17 0506 03/25/17 0506 Medications Current Medications Ondansetron HCl (Zofran Inj) 4 mg Q6H PRN IV NAUSEA AND/OR VOMITING Last administered on 03/22/17 08:24; Admin Dose 4 MG; Start 03/21/17 at 21:00 Acetaminophen (Tylenol Supp) 650 mg Q4H PRN [place] PAIN LEVEL 1-3 OR FEVER; Start 03/21/17 at 21:00 Morphine Sulfate (morphine) 2 mg Q4H PRN IV PAIN LEVEL 7-10 Last administered on 03/22/17 00:49; Admin Dose 2 MG; Start 03/21/17 at 21:00 Acetaminophen (Tylenol Tab) 650 mg Q4H PRN PO Temp greater than 99.6F; Start 03/21/17 at 21:00 Docusate Sodium (Colace) 100 mg BID PO Last administered on 03/26/17 08:46; Admin Dose 100 MG; Start 03/21/17 at 21:00 Hydralazine HCl (Apresoline) 10 mg Q4H PRN IV ELEVATED BLOOD PRESSURE Last administered on 03/25/17 09:04; Admin Dose 10 MG; Start 03/21/17 at 21:00 Aspirin (Aspirin) 81 mg DAILY PO Last administered on 03/26/17 08:45; Admin Dose 81 MG; Start 03/23/17 at 09:00 Amlodipine Besylate (Norvasc) 5 mg DAILY PO Last administered on 03/26/17 08: 45; Admin Dose 5 MG; Start 03/23/17 at 09:30 Famotidine (Pepcid) 20 mg DAILY PO Last administered on 03/26/17 08:45; Admin Dose 20 MG; Start 03/24/17 at 09:00 Atorvastatin Calcium (Lipitor) 80 mg HS PO Last administered on 03/25/17 21: 23; Admin Dose 80 MG; Start 03/23/17 at 21:00 Assessment/Plan Chief Complaint/Hosp Course 76 year old M with no significant PMHx 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 CTA showed occlusion Left PICA Undergoing further work up. MRI Brain: 1. Acute left cerebellar hemisphere infarct again seen with mass effect upon the fourth ventricle without evidence of hydrocephalus. 2. Mild to moderate volume loss with mild chronic microvascular ischemic changes. Recommendations: repeat Head CT this am for hiccups concerning for elevated ICP, if stable may tx out of ICU to tele SBP less than 140 continue aspirin ECHO w bubble EF wnl, no PFO LDL is 107, HBA1C 6.3% Lipitor 80 mg qhs pre-diabetes hematology nurse educator consultation dietary modification Tele monitoring for afib DVT ppx PT/OT/Speech eval- discharge planning outpatient neurology fu Problems: PRASANNA MAN MD Mar 26, 2017 11:57
--- NOTE | 2017-03-26 15:03 | PN ---
Date/Time of Note Date/Time of Note DATE: 03/26/17 TIME: 15:01 Assessment/Plan VTE Prophylaxis VTE Prophylaxis Intervention: SCD's Lines/Catheters IV Catheter Type (from Nrsg): Saline Lock Assessment/Plan Chief Complaint/Hosp Course 1. 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 Hypertension-stable Continue Norvasc 3. Pre-diabetes A1c 6.3 Lifestyle changes Prophylaxis: SCDs Dispo: Plan is for DC to home tomorrow, like take patient to another city, she states that she will arrange for physical therapy at a center of her choosing Problems: Subjective 24 Hr Interval Summary Free Text/Dictation Persistent hiccups Exam/Review of Systems Vital Signs Vitals Vital Signs Date Time Temp Pulse Resp B/P Pulse Ox O2 Delivery O2 Flow Rate FiO2 03/26/17 12:00 97 03/26/17 11:19 98.2 19 139/75 93 03/25/17 11:00 Nasal Cannula 03/23/17 20:00 2.0 Intake and Output 03/25/17 03/25/17 03/26/17 15:00 23:00 07:00 Intake Total 295 ml 250 ml 200 ml Output Total 530 ml 300 ml Balance -235 ml -50 ml 200 ml Exam Constitutional: alert, oriented Respiratory: clear to auscultation Cardiovascular: regular rate and rhythm Gastrointestinal: soft, No distended Musculoskeletal: nl extremities to inspection Results Result Diagram: 03/25/17 0506 03/25/17 0506 Medications Medications Current Medications Ondansetron HCl (Zofran Inj) 4 mg Q6H PRN IV NAUSEA AND/OR VOMITING Last administered on 03/22/17 08:24; Admin Dose 4 MG; Start 03/21/17 at 21:00 Acetaminophen (Tylenol Supp) 650 mg Q4H PRN [place] PAIN LEVEL 1-3 OR FEVER; Start 03/21/17 at 21:00 Morphine Sulfate (morphine) 2 mg Q4H PRN IV PAIN LEVEL 7-10 Last administered on 03/22/17 00:49; Admin Dose 2 MG; Start 03/21/17 at 21:00 Acetaminophen (Tylenol Tab) 650 mg Q4H PRN PO Temp greater than 99.6F; Start 03/21/17 at 21:00 Docusate Sodium (Colace) 100 mg BID PO Last administered on 03/26/17 08:46; Admin Dose 100 MG; Start 03/21/17 at 21:00 Hydralazine HCl (Apresoline) 10 mg Q4H PRN IV ELEVATED BLOOD PRESSURE Last administered on 03/25/17 09:04; Admin Dose 10 MG; Start 03/21/17 at 21:00 Aspirin (Aspirin) 81 mg DAILY PO Last administered on 03/26/17 08:45; Admin Dose 81 MG; Start 03/23/17 at 09:00 Amlodipine Besylate (Norvasc) 5 mg DAILY PO Last administered on 03/26/17 08: 45; Admin Dose 5 MG; Start 03/23/17 at 09:30 Famotidine (Pepcid) 20 mg DAILY PO Last administered on 03/26/17 08:45; Admin Dose 20 MG; Start 03/24/17 at 09:00 Atorvastatin Calcium (Lipitor) 80 mg HS PO Last administered on 03/25/17 21: 23; Admin Dose 80 MG; Start 03/23/17 at 21:00 VEGA BRAUN Mar 26, 2017 15:03
--- NOTE | 2017-03-26 16:50 | DS ---
Date/Time of Note Date/Time of Note DATE: 03/26/17 TIME: 16:42 Discharge Summary Admission/Discharge Info Admit Date/Time Mar 22, 2017 at 04:30 Discharge Date/Time March 26, 2017 Discharge Diagnosis 1. 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 Hypertension-slightly elevated Continue Norvasc but increased dose to 10 mg daily 3. Pre-diabetes A1c 6.3 Lifestyle changes 4. Intractable hiccups Started Thorazine, DC once hiccups have resolved Prophylaxis: SCDs Dispo: Plan is for DC to home tomorrow, like take patient to another city, she states that she will arrange for physical therapy at a center of her choosing Patient Condition: Good Hx of Present Illness . Hospital Course Patient is a 76-year-old male who presented with dizziness and nausea/vomiting. Patient also reported falling, he had a left-sided facial droop per the . MRI of the brain showed acute left cerebellar hemisphere infarct with mass effect upon the fourth ventricle without evidence of hydrocephalus. Patient was seen by neurology and was monitored in the ICU, patient had no further neurological deterioration and repeat CT head was stable. Patient BP was controlled with Norvasc and patient was evaluated by physical therapy, patient was requiring further therapy with assistance and rolling walker. Patient was felt to be an appropriate acute inpatient rehab candidate and on day of discharge patient vitals, labs physical exam stable. Patient had no other further acute complaints except for hiccups and was started on Thorazine for this. Home Meds No Active Prescriptions or Reported Meds Primary Care Provider Not On Staff Doctor Time spent on discharge: > 30 minutes VEGA BRAUN Mar 26, 2017 16:50
[2017-03-26] MEDS ORDERED: AMLODIPINE 5 MG TAB PO ONE (17:00)
[2017-03-26] MEDS: ATORVASTATIN 80 MG TAB PO SCH (20:53)
[2017-03-26] MEDS ORDERED: CHLORPROMAZINE 25 MG TAB PO SCH (21:00)
[2017-03-27] MEDS ORDERED: AMLODIPINE 10 MG TAB PO SCH (09:00)
== END 2017-03-26 21:20 | DRG 66 ==
LOC: E/R 17:21 → ICU 20:07 → UNDOADMIN 20:07 → ICU 03-22 04:30 → TEL 03-25 12:47 → UNDODISIN 03-25 19:06 → TEL 03-25 22:23
PROVIDERS: ADMIT Family Medicine; ATTEND Family Medicine
DX: I63.542 Cerebral infarction due to unspecified occlusion or stenosis of left cerebellar artery (principal); I10 Essential (primary) hypertension; R29.810 Facial weakness; R29.6 Repeated falls; R06.6 Hiccough; R73.03 Prediabetes
CPT/HCPCS: 36415; 70450; 70496; 70498; 70551; 71010; 80048; 80061; 80307; 81001; 82962; 83036; 83735; 84100; 84484; 85025; 85610; 85730; 87081; 90686; 92523; 92610; 93005; 93306; 96374; 96375; 96376; 97110; 97116; 97161; 97166; 97530; C9113; J0360; J2150; J2270; J2405; Q9967

== ENCOUNTER 2017-03-26 19:17 | Inpatient (IN) | payer MEDICARE, OTHER ==
[~2017-03-26] VITALS: Ht 167.6 cm; Wt 63.4 kg
[2017-03-26 22:00] VITALS: BP 134/76; PULSE 86; RESP 16; Ht 167.6 cm; Wt 63.4 kg
[2017-03-27] MEDS ORDERED: morphine 2 MG INJ IV PRN (01:00)
[2017-03-27] MEDS ORDERED: hydrALAzine 20 MG INJ IV PRN (01:00)
[2017-03-27] MEDS ORDERED: ONDANSETRON 4 MG INJ IV PRN (01:00)
[2017-03-27 01:55] LABS: ADD UMIC YES; UR ASCORBIC ACID NEGATIVE (NEGATIVE); UR BACTERIA FEW /HPF (NONE SEEN); UR BILIRUBIN (Dip) NEGATIVE (NEGATIVE); UR BLOOD (Dip) 3+ mg/dL (NEGATIVE); UR CLARITY SLIGHTLY CLOUDY (CLEAR); UR COLOR YELLOW (YELLOW); UR GLUCOSE (Dip) NEGATIVE (NEGATIVE); UR KETONES (Dip) NEGATIVE (NEGATIVE); UR LEUKOCYTE ESTERASE (Dip) NEGATIVE Leu/ul (NEGATIVE); UR MUCUS FEW /HPF (NONE SEEN); UR NITRITE (Dip) POSITIVE (NEGATIVE); UR RBC 143 /HPF (0-5); UR SPECIFIC GRAVITY (Dip) 1.029 (1.003-1.030); UR TOTAL PROTEIN (Dip) 2+ mg/dl (NEGATIVE); UR UROBILINOGEN (Dip) 2+ mg/dL (NEGATIVE)
[2017-03-27 02:00] VITALS: BP 146/87; PULSE 72; RESP 16
[2017-03-27] MEDS ORDERED: **FLU VACCINE PREVIOUSLY DISPENSED XX PRN (02:30)
[2017-03-27] MEDS ORDERED: BISACODYL 10 MG SUPP PR PRN (04:00)
[2017-03-27] MEDS ORDERED: MAGNESIUM HYDROXIDE 30ML CUP PO PRN (04:00)
[2017-03-27 07:10] LABS: BASOPHILS % 0.5 % (0.0-2.0); EOSINOPHILS # 0.2 10^3/ul (0.0-0.5); EOSINOPHILS % 2.9 % (0.0-7.0); HEMATOCRIT 44.6 % (42.0-52.0); HEMOGLOBIN 14.3 g/dl (14.0-18.0); LYMPHOCYTES # 2.3 10^3/ul (0.8-2.9); LYMPHOCYTES % 27.1 % (15.0-51.0); MEAN CORPUSCULAR HEMOGLOBIN 28.7 pg (29.0-33.0); MEAN CORPUSCULAR HGB CONC 32.1 g/dl (32.0-37.0); MEAN CORPUSCULAR VOLUME 89.4 fl (82.0-101.0); MONOCYTE # 0.8 10^3/ul (0.3-0.9); MONOCYTES % 9.1 % (0.0-11.0); NEUTROPHILS % 60.2 % (39.0-77.0); PLATELET COUNT 200 10^3/UL (140-415); RED BLOOD COUNT 4.99 10^6/ul (4.70-6.10); RED CELL DISTRIBUTION WIDTH 12.9 % (11.5-14.5); WHITE BLOOD COUNT 8.3 10^3/ul (4.8-10.8)
[2017-03-27 07:30] VITALS: BP 171/90; RESP 18
[2017-03-27 07:38] LABS: ALBUMIN 3.2 g/dl (3.3-4.9); BILIRUBIN,INDIRECT 0.4 mg/dl (0-1.1); BILIRUBIN,TOTAL 0.4 mg/dl (0.2-1.3); CREATININE 1.06 mg/dl (0.61-1.24); POTASSIUM 3.6 mmol/L (3.5-5.1); TOTAL PROTEIN 6.4 g/dl (6.1-8.1)
[2017-03-27] MEDS: DOCUSATE SODIUM 100 MG CAP PO SCH ×2 (08:41→20:54)
[2017-03-27] MEDS: ASPIRIN 81 MG TAB PO SCH (08:41)
[2017-03-27] MEDS: AMLODIPINE 10 MG TAB PO SCH (08:41)
[2017-03-27] MEDS: CHLORPROMAZINE 25 MG TAB PO SCH ×3 (08:41→20:54)
--- NOTE | 2017-03-27 09:09 | CONS ---
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 ACTIVE COMORBIDITIES: 1. Hypertension. 2. Urinary retention. 3. Impairments in self-care, mobility and mild cognition. HISTORY OF PRESENT ILLNESS: The patient is a 76-year-old gentleman with a history of hypertension who was admitted with dizziness, nausea, vomiting and weakness. A head CT was performed and demonstrated large acute infarct in the left anterior and middle cerebellar hemisphere with local mass effect. The patient did require ICU stay in addition to mannitol. The patient did not need surgical intervention as per neurosurgery. The patient has significant impairments in self-care and mobility as compared to baseline, and has been cleared to transfer to the rehabilitation unit for comprehensive interdisciplinary rehab care. FUNCTIONAL HISTORY: Prior to recent events, he was independent in self-care tasks and mobility. Currently, the patient requires minimal to moderate assist for self-care and mobility tasks. I have reviewed the preadmission screen and the patient's current functional status is consistent with the preadmission screen. SOCIAL HISTORY: The patient reports living at home alone and hopes to return there upon discharge. PAST MEDICAL HISTORY: Hypertension. CURRENT MEDICATIONS: 1. Norvasc 10 mg p.o. daily. 2. Aspirin 81 mg p.o. daily. 3. Lipitor 80 mg p.o. at bedtime. 4. Colace 100 mg b.i.d. ALLERGIES: THE PATIENT WITH NO KNOWN DRUG ALLERGIES. PHYSICAL EXAMINATION: VITAL SIGNS: The patient is currently afebrile with stable vital signs. HEENT: The extraocular motion intact. Oropharynx clear. NECK: Supple. LUNGS: Clear anteriorly. CARDIAC: S1, S2. ABDOMEN: Soft, nontender, positive bowel sounds. NEUROLOGIC: He is awake and alert and oriented x3. He will follow simple 1- step commands. He demonstrates antigravity strength in bilateral upper extremity and lower extremity. PLAN: The patient has been admitted for comprehensive interdisciplinary acute rehab and is anticipated to tolerate 3 hours of daily therapy in divided doses for at least 5/7 days a week. The treatment plan will include: 1. Physical therapy to focus on bed mobility, transfers, and household ambulation with the goal of having the patient reach a standby assist level. 2. Occupational therapy to focus on hygiene, grooming, dressing, bathing, and toileting activities with the goal of having the patient reach standby assist level. 3. Speech therapy for full cognitive assessment and retraining with the goal of having the patient return to baseline cognition. 4. Rehabilitation nursing for carryover of therapeutic interventions, the goal of continent of bowel and bladder, the goal of patient education with regard to the aforementioned issues. ESTIMATED LENGTH OF STAY: Ten days. DISPOSITION GOAL: Home. REHABILITATION BARRIER: urinary retention INTERVENTION FOR BARRIER: bladder progam I acknowledge that I performed a full physical examination on this patient within 24 hours of admission to the rehabilitation unit. I believe the patient is a good candidate for comprehensive interdisciplinary rehab care and is anticipated to make reasonable goals in a reasonable period of time as outlined above. Dictated By: REGI MUNROE/ROSE Conf#: [id number] DID#: [id number] MTDD
--- NOTE | 2017-03-27 12:30 | CONS ---
Date/Time of Note Date/Time of Note DATE: 03/27/17 TIME: 12:23 Assessment/Plan Assessment/Plan Chief Complaint/Hosp Course 76-year-old male with acute CVA, transferred to acute rehabilitation unit from [facility] for further complex interdisciplinary rehab care. 1. 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 -Status post neurology and neurosurgical evaluation. Recommended medical management with aspirin, statin and blood pressure medications. 2. Hypertension. -Continue antihypertensives. Goal blood pressure ~ 140/90 3. Debility secondary to #1. -Continue with PT/OT evaluation and treatment 4. Positive urinalysis suggestive of possible urinary tract infection. -Add ceftriaxone prophylactically and follow-up final cultures. 5. History of psychiatric illness. -Continue home medications. Approximately 60 minutes was spent on this consultation. Patient was seen in collaboration with . Problems: Consultation Date/Type/Reason Admit Date/Time Mar 26, 2017 at 21:40 Type of Consultation: Internal medicine Reason for Consultation Internal medicine Hx of Present Illness This is a 76-year-old male with a past medical history of hypertension, who was initially admitted at [facility] for dizziness and weakness. He was diagnosed with acute stroke with local mass-effect. Patient was also evaluated by neurology and neurosurgery and did not require any surgical intervention. Recommendation was to continue medical management. He was then evaluated by physical therapy and continued to have impairment in self-care and mobility requiring admission to acute rehabilitation unit for further complex interdisciplinary rehab care. At my encounter with the patient, he appeared mostly sleepy and is somewhat not interested in having conversation. However, he denied chest pain, palpitation, shortness of breath, nausea, vomiting, abdominal pain, headache, confusion, or any new weakness. Initial labs and vital signs within acceptable range. However, he continued to have ongoing weakness mostly on the right extremities. Patient's urine analysis is suggestive of urinary tract infection with positive nitrates, WBCs, and bacteria. He denied any dysuria, hematuria, urinary frequency or urgency. 12 point review of system was assessed and is negative other than what is mentioned in HPI. Past Medical History See HPI Past Surgical History See HPI Social History Former smoker and alcohol use. Denied any history of illicit drug use. Smoking Status: Former smoker Exam/Review of Systems Vital Signs Vitals Vital Signs Date Time Temp Pulse Resp B/P Pulse Ox O2 Delivery O2 Flow Rate FiO2 03/27/17 07:30 98.9 72 18 171/90 96 03/27/17 02:00 Room Air Intake and Output 03/26/17 03/26/17 03/27/17 15:00 23:00 07:00 Intake Total 240 ml Output Total 300 ml Balance -60 ml Exam General: Well developed,adequately built, not in any acute distress . HEENT: Normocephalic, Atraumatic, No laceration or hematoma; Eyes: PEERL, Conjunctiva clear, Anicteric sclera Neck: Supple without any lymphadenopathy, nontender, no JVD, no carotid bruits, trachea midline, no thyromegaly Cardiac: S1, S2 auscultated, regular rhythm and rate, no mumurs or gallop Pulmonary: Normal respiratory effort. Chest clear to auscultation bilaterally, no adventitious breath sounds GI: Abdomen normal to inspection. Soft, non tender, non- distended, no masses, no rebound tenderness or guarding. Bowel sounds active on all four quadrants Genitourinary: Deferred Extremities: Weakness to right upper extremities. No cyanosis, clubbing, or edema. Pulses [2+] bilaterally. Full ROM on all four extremities. No focal weakness appreciated. Neurologic: Patient appears sleepy mostly. However, he seems alert to person, place, time, and situation. Affect depressed, intact sensation. Skin: Clean,dry, and intact. No ecchymosis, no rashes, or lesions Results Result Diagram: 03/27/17 0643 03/27/17 0642 Results 24 hrs Laboratory Tests Test 03/26/17 22:40 03/27/17 06:42 03/27/17 06:43 Urine Color YELLOW Urine Clarity SLIGHTLY CLOUDY A Urine pH 6.0 Urine Specific [place] 1.029 Urine Ketones NEGATIVE Urine Nitrite POSITIVE A Urine Bilirubin NEGATIVE Urine Urobilinogen 2+ H Urine Leukocyte Esterase NEGATIVE Urine Microscopic RBC 143 H Urine Microscopic WBC 16 H Urine Bacteria FEW A Urine Mucus FEW A Urine Hemoglobin 3+ H Urine Glucose NEGATIVE Urine Total Protein 2+ H Sodium Level 139 Potassium Level 3.6 Chloride Level 104 Carbon Dioxide Level 30 Anion Gap 9 Blood Urea Nitrogen 37 H Creatinine 1.06 Glucose Level 95 Calcium Level 9.0 Total Bilirubin 0.4 Direct Bilirubin 0.00 Indirect Bilirubin 0.4 Aspartate Amino Transf (AST/SGOT) 40 Alanine Aminotransferase (ALT/SGPT) 57 Alkaline Phosphatase 65 Total Protein 6.4 Albumin 3.2 L Globulin 3.20 Albumin/Globulin Ratio 1.00 White Blood Count 8.3 Red Blood Count 4.99 Hemoglobin 14.3 Hematocrit 44.6 Mean Corpuscular Volume 89.4 Mean Corpuscular Hemoglobin 28.7 L Mean Corpuscular Hemoglobin Concent 32.1 Red Cell Distribution Width 12.9 Platelet Count 200 Mean Platelet Volume 12.0 H Neutrophils % 60.2 Lymphocytes % 27.1 Monocytes % 9.1 Eosinophils % 2.9 Basophils % 0.5 Nucleated Red Blood Cells % 0.0 Neutrophils # 5.0 Lymphocytes # 2.3 Monocytes # 0.8 Eosinophils # 0.2 Basophils # 0.0 Nucleated Red Blood Cells # 0.0 Medications Medications Current Medications Acetaminophen (Tylenol Tab) 650 mg Q4H PRN PO PAIN AND OR ELEVATED TEMP; Start 03/27/17 at 01:00 Amlodipine Besylate (Norvasc) 10 mg DAILY PO Last administered on 03/27/17 08 :41; Admin Dose 10 MG; Start 03/27/17 at 09:00 Aspirin (Aspirin) 81 mg DAILY PO Last administered on 03/27/17 08:41; Admin Dose 81 MG; Start 03/27/17 at 09:00 Atorvastatin Calcium (Lipitor) 80 mg DAILY@21 PO ; Start 03/27/17 at 21:00 Chlorpromazine (Thorazine) 25 mg TID PO Last administered on 03/27/17 08:41; Admin Dose 25 MG; Start 03/27/17 at 09:00 Docusate Sodium (Colace) 100 mg BID PO Last administered on 03/27/17 08:41; Admin Dose 100 MG; Start 03/27/17 at 09:00 Hydralazine HCl (Apresoline) 10 mg Q4H PRN IV HTN; Start 03/27/17 at 01:00 Morphine Sulfate (morphine) 2 mg Q4H PRN IV PAIN; Start 03/27/17 at 01:00 Ondansetron HCl (Zofran Inj) 4 mg Q6H PRN IV NAUSEA AND/OR VOMITING; Start at 01:00 Miscellaneous Information (Flu Vaccine Previously Dispensed) FLU VACCINE PREVIOU... NOTE PRN XX NOTE; Start 03/27/17 at 02:30 Bisacodyl (Dulcolax Supp) 10 mg DAILY PRN [place] CONSTIPATION; Start 03/27/17 at 04:00 Magnesium Hydroxide (Milk Of Mag) 30 ml BID PRN PO CONSTIPATION; Start at 04:00 Lactulose 20 gm 20 gm DAILY PRN PO CONSTIPATION; Start 03/27/17 at 04:00 Ceftriaxone Sodium (Rocephin) 50 ml @ 100 mls/hr Q24H IVPB ; Start 03/27/17 at 12:00 MISTY GALAN NP Mar 27, 2017 12:29
[2017-03-27] MEDS: CEFTRIAXONE 1 GM/50 ML (PMX) 50 ML IVPB SCH (12:34)
[2017-03-27] MEDS: ATORVASTATIN 80 MG TAB PO SCH (20:54)
[2017-03-28 08:04] VITALS: BP 140/78; PULSE 62; RESP 18
[2017-03-28] MEDS: ASPIRIN 81 MG TAB PO SCH (08:27)
[2017-03-28] MEDS: DOCUSATE SODIUM 100 MG CAP PO SCH ×2 (08:27→20:02)
[2017-03-28] MEDS: CHLORPROMAZINE 25 MG TAB PO SCH ×3 (08:28→20:02)
[2017-03-28] MEDS: AMLODIPINE 10 MG TAB PO SCH (08:28)
--- NOTE | 2017-03-28 11:16 | CONS ---
Date/Time of Note Date/Time of Note DATE: 03/28/17 TIME: 11:13 Assessment/Plan Assessment/Plan Chief Complaint/Hosp Course 76-year-old male with acute CVA, transferred to acute rehabilitation unit from [facility] for further complex interdisciplinary rehab care. 1. 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 -Status post neurology and neurosurgical evaluation. Recommended medical management with aspirin, statin and blood pressure medications. 2. Hypertension. -Continue antihypertensives. Goal blood pressure ~ 140/90 3. Urinary tract infection. Culture growing staph species. -Add Vancomycin for MRSA coverage and f/u final Culture. Continue ceftriaxone prophylactically. 4. Debility secondary to #1. -Continue with PT/OT evaluation and treatment 5. History of psychiatric illness. -Continue home medications. Patient was seen in collaboration with . Problems: Consultation Date/Type/Reason Admit Date/Time Mar 26, 2017 at 21:40 Initial Consult Date Type of Consultation: Internal medicine 24 HR Interval Summary Free Text/Dictation Doing well. Afebrile. denies any urinary frequency/urgency/dysuria Exam/Review of Systems Vital Signs Vitals Vital Signs Date Time Temp Pulse Resp B/P Pulse Ox O2 Delivery O2 Flow Rate FiO2 03/28/17 08:04 98.4 62 18 140/78 96 Room Air Intake and Output 03/27/17 03/27/17 03/28/17 15:00 23:00 07:00 Intake Total 50 ml 360 ml Output Total 200 ml 900 ml 300 ml Balance -150 ml -900 ml 60 ml Exam General: Well developed,adequately built, not in any acute distress . HEENT: Normocephalic, Atraumatic, No laceration or hematoma; Eyes: PEERL, Conjunctiva clear, Anicteric sclera Neck: Supple without any lymphadenopathy, nontender, no JVD, no carotid bruits, trachea midline, no thyromegaly Cardiac: S1, S2 auscultated, regular rhythm and rate, no mumurs or gallop Pulmonary: Normal respiratory effort. Chest clear to auscultation bilaterally, no adventitious breath sounds GI: Abdomen normal to inspection. Soft, non tender, non- distended, no masses, no rebound tenderness or guarding. Bowel sounds active on all four quadrants Genitourinary: Deferred Extremities: Weakness to right upper extremities. No cyanosis, clubbing, or edema. Pulses [2+] bilaterally. Full ROM on all four extremities. No focal weakness appreciated. Neurologic: Patient appears sleepy mostly. However, he seems alert to person, place, time, and situation. Affect depressed, intact sensation. Skin: Clean,dry, and intact. No ecchymosis, no rashes, or lesions Results Result Diagram: 03/27/17 0643 03/27/17 0642 Medications Medications Current Medications Acetaminophen (Tylenol Tab) 650 mg Q4H PRN PO PAIN AND OR ELEVATED TEMP; Start 03/27/17 at 01:00 Amlodipine Besylate (Norvasc) 10 mg DAILY PO Last administered on 03/28/17 08 :28; Admin Dose 10 MG; Start 03/27/17 at 09:00 Aspirin (Aspirin) 81 mg DAILY PO Last administered on 03/28/17 08:27; Admin Dose 81 MG; Start 03/27/17 at 09:00 Atorvastatin Calcium (Lipitor) 80 mg DAILY@21 PO Last administered on 20:54; Admin Dose 80 MG; Start 03/27/17 at 21:00 Chlorpromazine (Thorazine) 25 mg TID PO Last administered on 03/28/17 08:28; Admin Dose 25 MG; Start 03/27/17 at 09:00 Docusate Sodium (Colace) 100 mg BID PO Last administered on 03/28/17 08:27; Admin Dose 100 MG; Start 03/27/17 at 09:00 Hydralazine HCl (Apresoline) 10 mg Q4H PRN IV HTN; Start 03/27/17 at 01:00 Morphine Sulfate (morphine) 2 mg Q4H PRN IV PAIN; Start 03/27/17 at 01:00 Ondansetron HCl (Zofran Inj) 4 mg Q6H PRN IV NAUSEA AND/OR VOMITING; Start at 01:00 Miscellaneous Information (Flu Vaccine Previously Dispensed) FLU VACCINE PREVIOU... NOTE PRN XX NOTE; Start 03/27/17 at 02:30 Bisacodyl (Dulcolax Supp) 10 mg DAILY PRN [place] CONSTIPATION; Start 03/27/17 at 04:00 Magnesium Hydroxide (Milk Of Mag) 30 ml BID PRN PO CONSTIPATION; Start at 04:00 Lactulose 20 gm 20 gm DAILY PRN PO CONSTIPATION; Start 03/27/17 at 04:00 Ceftriaxone Sodium (Rocephin) 50 ml @ 100 mls/hr Q24H IVPB Last administered on 03/27/17t 12:34; Admin Dose 100 MLS/HR; Start 03/27/17 at 12:00 MISTY GALAN NP Mar 28, 2017 11:16
[2017-03-28] MEDS ORDERED: VANCOMYCIN IV PER PHARMACY XX SCH (11:30)
[2017-03-28] MEDS: CEFTRIAXONE 1 GM/50 ML (PMX) 50 ML IVPB SCH (12:28)
[2017-03-28] MEDS ORDERED: VANCOMYCIN 1.25 GM in SOD CHLORIDE 0.9% 250 ML IVPB ONE (12:30)
[2017-03-28 14:00] VITALS: BP 125/74; PULSE 87; RESP 18
--- NOTE | 2017-03-28 14:52 | CONS ---
Date/Time of Note Date/Time of Note DATE: 03/28/17 TIME: 14:43 Assessment/Plan Assessment/Plan Chief Complaint/Hosp Course Urinary retention, check his voiding, his postvoid residual, do straight cath for a postvoid residual of 300 mL or if bladder scan shows over 500 mL and he does not void. The retention is most likely secondary to his recent stroke Urinary tract infection for which she is already on antibiotic. Problems: Consultation Date/Type/Reason Admit Date/Time Mar 26, 2017 at 21:40 Date of Consultation: Mar 28, 2017 Type of Consultation: urlogy Reason for Consultation Urinary retention status post stroke and urinary tract infection Referring Provider: YASSINE HAYDEN [facility], [facility] Hx of Present Illness This is a 76-year-old male with a past medical history of hypertension, was admitted at [facility] for dizziness and weakness. He was diagnosed with acute stroke with local mass-effect. Patient was also evaluated by neurology and neurosurgery and did not require any surgical intervention. Recommendation was to continue medical management. He was then evaluated by physical therapy and continued to have impairment in self-care and mobility requiring admission to acute rehabilitation unit for further complex interdisciplinary rehab care. He has not been able to urinate and required intermittent catheterization last one being a few minutes earlier for 350 mL and earlier 900 mL. The patient denies any prior problem was his urine and was not taking any medication for his prostate. Constitutional: no complaints Eyes: no complaints ENT: no complaints Respiratory: no complaints, No cough Cardiovascular: No chest pain, No edema Gastrointestinal: no complaints Genitourinary: dysuria, No bleeding, No flank pain Musculoskeletal: no complaints Skin: no complaints Neurologic: other (Patient status post acute stroke) Endocrine: no complaints Lymphatic: no complaints Psychological: nl mood/affect, no complaints, other Past Medical History Medical History: hypertension Past Surgical History Past Surgical Hx: no surgical history Social History Alcohol Use: none Smoking Status: Former smoker Drug Use: none Exam/Review of Systems Vital Signs Vitals Vital Signs Date Time Temp Pulse Resp B/P Pulse Ox O2 Delivery O2 Flow Rate FiO2 03/28/17 08:04 98.4 62 18 140/78 96 Room Air Intake and Output 03/27/17 03/27/17 03/28/17 15:00 23:00 07:00 Intake Total 50 ml 360 ml Output Total 200 ml 900 ml 300 ml Balance -150 ml -900 ml 60 ml Exam Constitutional: alert, oriented Psych: no complaints Head: atraumatic, normocephalic Eyes: nl conjunctiva ENMT: nl external ears & nose Neck: supple Respiratory: normal air movement Cardiovascular: regular rate and rhythm Gastrointestinal: non-tender, other (A little obese), soft Genitourinary - Male: nl penis, nl scrotum, other (Bladder scan shows no retention now but he was catheterized about half hour earlier, rectal examination revealed soft and mildly enlarged prostate), No CVA tenderness Skin: nl turgor Results Result Diagram: 03/27/1764203/27/1742 Medications Medications Current Medications Acetaminophen (Tylenol Tab) 650 mg Q4H PRN PO PAIN AND OR ELEVATED TEMP; Start 03/27/17 at 01:00 Amlodipine Besylate (Norvasc) 10 mg DAILY PO Last administered on 03/28/17 08 :28; Admin Dose 10 MG; Start 03/27/17 at 09:00 Aspirin (Aspirin) 81 mg DAILY PO Last administered on 03/28/17 08:27; Admin Dose 81 MG; Start 03/27/17 at 09:00 Atorvastatin Calcium (Lipitor) 80 mg DAILY@21 PO Last administered on 20:54; Admin Dose 80 MG; Start 03/27/17 at 21:00 Chlorpromazine (Thorazine) 25 mg TID PO Last administered on 03/28/17 08:28; Admin Dose 25 MG; Start 03/27/17 at 09:00 Docusate Sodium (Colace) 100 mg BID PO Last administered on 03/28/17 08:27; Admin Dose 100 MG; Start 03/27/17 at 09:00 Hydralazine HCl (Apresoline) 10 mg Q4H PRN IV HTN; Start 03/27/17 at 01:00 Morphine Sulfate (morphine) 2 mg Q4H PRN IV PAIN; Start 03/27/17 at 01:00 Ondansetron HCl (Zofran Inj) 4 mg Q6H PRN IV NAUSEA AND/OR VOMITING; Start at 01:00 Miscellaneous Information (Flu Vaccine Previously Dispensed) FLU VACCINE PREVIOU... NOTE PRN XX NOTE; Start 03/27/17 at 02:30 Bisacodyl (Dulcolax Supp) 10 mg DAILY PRN [place] CONSTIPATION; Start 03/27/17 at 04:00 Magnesium Hydroxide (Milk Of Mag) 30 ml BID PRN PO CONSTIPATION; Start at 04:00 Lactulose 20 gm 20 gm DAILY PRN PO CONSTIPATION; Start 03/27/17 at 04:00 Ceftriaxone Sodium 50 ml @ 100 mls/hr Q24H IVPB Last administered on t 12:28; Admin Dose 100 MLS/HR; Start 03/27/17 at 12:00 Vancomycin HCl 1.25 gm/Sodium Chloride 250 ml @ 83.333 mls/ hr ONCE ONCE IVPB ; Start 03/28/17 at 12:30; Stop 03/28/17 at 15:29 Vancomycin HCl (Vancocin) 250 ml @ 125 mls/hr Q24H IVPB ; Start 03/29/17 at 12 :00 RYANN CONNELL MD Mar 28, 2017 14:52
[2017-03-28 20:00] VITALS: BP 159/84; PULSE 88; RESP 19
[2017-03-28] MEDS: ATORVASTATIN 80 MG TAB PO SCH (20:02)
[2017-03-29 02:00] VITALS: BP 116/64; PULSE 88; RESP 16
[2017-03-29 07:00] VITALS: BP 140/73; RESP 18
[2017-03-29] MEDS: AMLODIPINE 10 MG TAB PO SCH (08:45)
[2017-03-29] MEDS: DOCUSATE SODIUM 100 MG CAP PO SCH ×2 (08:45→21:02)
[2017-03-29] MEDS: ASPIRIN 81 MG TAB PO SCH (08:45)
[2017-03-29] MEDS: CHLORPROMAZINE 25 MG TAB PO SCH ×3 (08:45→21:02)
--- NOTE | 2017-03-29 10:36 | CONS ---
Date/Time of Note Date/Time of Note DATE: 03/29/17 TIME: 10:34 Assessment/Plan Assessment/Plan Chief Complaint/Hosp Course 76-year-old male with acute CVA, transferred to acute rehabilitation unit from [facility] for further complex interdisciplinary rehab care. 1. 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 -Status post neurology and neurosurgical evaluation. Recommended medical management with aspirin, statin and blood pressure medications. 2. Hypertension. -Continue antihypertensives. Goal blood pressure ~ 140/90 3. Coagulase-negative Staphylococcus urinary tract infection. -Continue ceftriaxone prophylactically. Stop vancomycin. 4. Debility secondary to #1. -Continue with PT/OT evaluation and treatment 5. History of psychiatric illness. -Continue home medications. Patient was seen in collaboration with . Problems: Consultation Date/Type/Reason Admit Date/Time Mar 26, 2017 at 21:40 Type of Consultation: urlogy Referring Provider: YASSINE HAYDEN MD, [facility] [place] 24 HR Interval Summary Free Text/Dictation No acute overnight episodes. Has been participating in rehab activities. Exam/Review of Systems Vital Signs Vitals Vital Signs Date Time Temp Pulse Resp B/P Pulse Ox O2 Delivery O2 Flow Rate FiO2 03/29/17 07:00 98.5 84 18 140/73 96 03/29/17 02:00 Room Air Intake and Output 03/28/17 03/28/17 03/29/17 15:00 23:00 07:00 Intake Total 550 ml 610 ml 120 ml Output Total 350 ml 763 ml Balance 200 ml -153 ml 120 ml Exam General: Well developed,adequately built, not in any acute distress . HEENT: Normocephalic, Atraumatic, No laceration or hematoma; Eyes: PEERL, Conjunctiva clear, Anicteric sclera Neck: Supple without any lymphadenopathy, nontender, no JVD, no carotid bruits, trachea midline, no thyromegaly Cardiac: S1, S2 auscultated, regular rhythm and rate, no mumurs or gallop Pulmonary: Normal respiratory effort. Chest clear to auscultation bilaterally, no adventitious breath sounds GI: Abdomen normal to inspection. Soft, non tender, non- distended, no masses, no rebound tenderness or guarding. Bowel sounds active on all four quadrants Genitourinary: Deferred Extremities: Weakness to right upper extremities. No cyanosis, clubbing, or edema. Pulses [2+] bilaterally. Full ROM on all four extremities. No focal weakness appreciated. Neurologic: Patient appears sleepy mostly. However, he seems alert to person, place, time, and situation. Affect depressed, intact sensation. Skin: Clean,dry, and intact. No ecchymosis, no rashes, or lesions Results Result Diagram: 03/27/17 0643 03/27/17 0642 Medications Medications Current Medications Acetaminophen (Tylenol Tab) 650 mg Q4H PRN PO PAIN AND OR ELEVATED TEMP; Start 03/27/17 at 01:00 Amlodipine Besylate (Norvasc) 10 mg DAILY PO Last administered on 03/29/17 08 :45; Admin Dose 10 MG; Start 03/27/17 at 09:00 Aspirin (Aspirin) 81 mg DAILY PO Last administered on 03/29/17 08:45; Admin Dose 81 MG; Start 03/27/17 at 09:00 Atorvastatin Calcium (Lipitor) 80 mg DAILY@21 PO Last administered on 20:02; Admin Dose 80 MG; Start 03/27/17 at 21:00 Chlorpromazine (Thorazine) 25 mg TID PO Last administered on 03/29/17 08:45; Admin Dose 25 MG; Start 03/27/17 at 09:00 Docusate Sodium (Colace) 100 mg BID PO Last administered on 03/29/17 08:45; Admin Dose 100 MG; Start 03/27/17 at 09:00 Hydralazine HCl (Apresoline) 10 mg Q4H PRN IV HTN; Start 03/27/17 at 01:00 Morphine Sulfate (morphine) 2 mg Q4H PRN IV PAIN; Start 03/27/17 at 01:00 Ondansetron HCl (Zofran Inj) 4 mg Q6H PRN IV NAUSEA AND/OR VOMITING; Start at 01:00 Miscellaneous Information (Flu Vaccine Previously Dispensed) FLU VACCINE PREVIOU... NOTE PRN XX NOTE; Start 03/27/17 at 02:30 Bisacodyl (Dulcolax Supp) 10 mg DAILY PRN [place] CONSTIPATION; Start 03/27/17 at 04:00 Magnesium Hydroxide (Milk Of Mag) 30 ml BID PRN PO CONSTIPATION; Start at 04:00 Lactulose 20 gm 20 gm DAILY PRN PO CONSTIPATION; Start 03/27/17 at 04:00 Ceftriaxone Sodium 50 ml @ 100 mls/hr Q24H IVPB Last administered on 12:28; Admin Dose 100 MLS/HR; Start 03/27/17 at 12:00 Vancomycin HCl (Vancocin) 250 ml @ 125 mls/hr Q24H IVPB Last administered on 03/28/17 15:22; Admin Dose 125 MLS/HR; Start 03/29/17 at 12:00 MISTY GALAN NP Mar 29, 2017 10:36
[2017-03-29] MEDS ORDERED: VANCOMYCIN 1 GM in NS 250 ML IVPB SCH (12:00)
[2017-03-29] MEDS: CEFTRIAXONE 1 GM/50 ML (PMX) 50 ML IVPB SCH (12:26)
[2017-03-29] MEDS ORDERED: PANTOPRAZOLE (EC) 40 MG TAB PO ONE (15:30)
[2017-03-29] MEDS: PANTOPRAZOLE (EC) 40 MG TAB PO SCH (16:48)
[2017-03-29 19:46] VITALS: BP 117/57; RESP 18
[2017-03-29] MEDS: ATORVASTATIN 80 MG TAB PO SCH (21:02)
[2017-03-30 02:00] VITALS: BP 128/67; RESP 18
[2017-03-30] MEDS: PANTOPRAZOLE (EC) 40 MG TAB PO SCH (05:55)
[2017-03-30 08:21] VITALS: BP 139/70; PULSE 79; RESP 20
[2017-03-30] MEDS: DOCUSATE SODIUM 100 MG CAP PO SCH ×2 (08:51→20:30)
[2017-03-30] MEDS: AMLODIPINE 10 MG TAB PO SCH (08:51)
[2017-03-30] MEDS: CHLORPROMAZINE 25 MG TAB PO SCH ×3 (08:51→20:29)
[2017-03-30] MEDS: ASPIRIN 81 MG TAB PO SCH (08:52)
--- NOTE | 2017-03-30 11:15 | CONS ---
Date/Time of Note Date/Time of Note DATE: 03/30/17 TIME: 11:12 Assessment/Plan Assessment/Plan Chief Complaint/Hosp Course 76-year-old male with acute CVA, transferred to acute rehabilitation unit from [facility] for further complex interdisciplinary rehab care. 1. 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 -Status post neurology and neurosurgical evaluation. Recommended medical management with aspirin, statin and blood pressure medications. 2. Hypertension. -Continue antihypertensives. Goal blood pressure ~ 140/90 3. Coagulase-negative Staphylococcus urinary tract infection. -Continue [id number] days 4. Debility secondary to #1. -Continue with PT/OT evaluation and treatment 5. History of psychiatric illness. -Continue home medications. 6. GERD. Now stable. -Continue Protonix. 7. Urinary retention likely secondary to CVA with underlying urinary tract infection. -Patient is being followed up with the urology service. Patient was seen in collaboration with . Problems: Consultation Date/Type/Reason Admit Date/Time Mar 26, 2017 at 21:40 Type of Consultation: urlogy Referring Provider: YASSINE HAYDEN MD, [facility] 24 HR Interval Summary Free Text/Dictation Patient doing well. No further heartburn or other distress. Participating in rehab activities. However, patient continued to have urinary retention requiring in and out catheterization. Exam/Review of Systems Vital Signs Vitals Vital Signs Date Time Temp Pulse Resp B/P Pulse Ox O2 Delivery O2 Flow Rate FiO2 03/30/17 08:21 98.7 79 20 139/70 95 Room Air Intake and Output 03/29/17 03/29/17 03/30/17 15:00 23:00 07:00 Intake Total 50 ml 1000 ml Balance 50 ml 1000 ml Exam General: Well developed,adequately built, not in any acute distress . HEENT: Normocephalic, Atraumatic, No laceration or hematoma; Eyes: PEERL, Conjunctiva clear, Anicteric sclera Neck: Supple without any lymphadenopathy, nontender, no JVD, no carotid bruits, trachea midline, no thyromegaly Cardiac: S1, S2 auscultated, regular rhythm and rate, no mumurs or gallop Pulmonary: Normal respiratory effort. Chest clear to auscultation bilaterally, no adventitious breath sounds GI: Abdomen normal to inspection. Soft, non tender, non- distended, no masses, no rebound tenderness or guarding. Bowel sounds active on all four quadrants Genitourinary: Deferred Extremities: Weakness to right upper extremities. No cyanosis, clubbing, or edema. Pulses [2+] bilaterally. Full ROM on all four extremities. No focal weakness appreciated. Neurologic: Patient appears sleepy mostly. However, he seems alert to person, place, time, and situation. Affect depressed, intact sensation. Skin: Clean,dry, and intact. No ecchymosis, no rashes, or lesions Results Result Diagram: 03/27/1743 03/27/17 0642 Medications Medications Current Medications Acetaminophen (Tylenol Tab) 650 mg Q4H PRN PO PAIN AND OR ELEVATED TEMP; Start 03/27/17 at 01:00 Amlodipine Besylate (Norvasc) 10 mg DAILY PO Last administered on 03/30/17 08 :51; Admin Dose 10 MG; Start 03/27/17 at 09:00 Aspirin (Aspirin) 81 mg DAILY PO Last administered on 03/30/17 08:52; Admin Dose 81 MG; Start 03/27/17 at 09:00 Atorvastatin Calcium (Lipitor) 80 mg DAILY@21 PO Last administered on 21:02; Admin Dose 80 MG; Start 03/27/17 at 21:00 Chlorpromazine (Thorazine) 25 mg TID PO Last administered on 03/30/17 08:51; Admin Dose 25 MG; Start 03/27/17 at 09:00 Docusate Sodium (Colace) 100 mg BID PO Last administered on 03/30/17 08:51; Admin Dose 100 MG; Start 03/27/17 at 09:00 Hydralazine HCl (Apresoline) 10 mg Q4H PRN IV HTN; Start 03/27/17 at 01:00 Morphine Sulfate (morphine) 2 mg Q4H PRN IV PAIN Last administered on 13:53; Admin Dose 2 MG; Start 03/27/17 at 01:00 Ondansetron HCl (Zofran Inj) 4 mg Q6H PRN IV NAUSEA AND/OR VOMITING; Start at 01:00 Miscellaneous Information (Flu Vaccine Previously Dispensed) FLU VACCINE PREVIOU... NOTE PRN XX NOTE; Start 03/27/17 at 02:30 Bisacodyl (Dulcolax Supp) 10 mg DAILY PRN [place] CONSTIPATION; Start 03/27/17 at 04:00 Magnesium Hydroxide (Milk Of Mag) 30 ml BID PRN PO CONSTIPATION; Start at 04:00 Lactulose 20 gm 20 gm DAILY PRN PO CONSTIPATION; Start 03/27/17 at 04:00 Ceftriaxone Sodium (Rocephin) 50 ml @ 100 mls/hr Q24H IVPB Last administered on 03/29/17 12:26; Admin Dose 100 MLS/HR; Start 03/27/17 at 12:00; Stop at 11:59 Pantoprazole (Protonix Tab) 40 mg DAILY@06 PO Last administered on 03/30/17 05:55; Admin Dose 40 MG; Start 03/29/17 at 16:00 MISTY GALAN NP Mar 30, 2017 11:15
[2017-03-30] MEDS: CEFTRIAXONE 1 GM/50 ML (PMX) 50 ML IVPB SCH (12:11)
--- NOTE | 2017-03-30 12:24 | CONS ---
Date/Time of Note Date/Time of Note DATE: 03/30/17 TIME: 12:24 Consult Date/Type/Reason Admit Date/Time Mar 26, 2017 at 21:40 Initial Consult Date 03/28/17 Type of Consultation: urlogy Ordering Provider: YASSINE HAYDEN MD, [facility] Objective Vital Signs Date Time Temp Pulse Resp B/P Pulse Ox O2 Delivery O2 Flow Rate FiO2 03/30/17 08:21 98.7 79 20 139/70 95 Room Air Intake and Output 03/29/17 03/29/17 03/30/17 15:00 23:00 07:00 Intake Total 50 ml 1000 ml Balance 50 ml 1000 ml INTERDISCIPLINARY TEAM CONFERENCE BOWEL- Cont BLADDER-Urinary retention SKIN- intact OT- DRESSING-min BATHING-min TOILETING-min PT- BED MOBILITY-min TRANSFERS-min AMBULATION-min 150 SPEECH- COGNITION-sba A/P- Interdisciplinary team conference held today. Please see interdisciplinary sheet. Working toward d.c. on 04/06 with post discharge follow up of physical therapy, occupational therapy. Results/Medications Result Diagram: 03/27/17 0643 03/27/17 0642 Medications Current Medications Acetaminophen (Tylenol Tab) 650 mg Q4H PRN PO PAIN AND OR ELEVATED TEMP; Start 03/27/17 at 01:00 Amlodipine Besylate (Norvasc) 10 mg DAILY PO Last administered on 03/30/17 08 :51; Admin Dose 10 MG; Start 03/27/17 at 09:00 Aspirin (Aspirin) 81 mg DAILY PO Last administered on 03/30/17 08:52; Admin Dose 81 MG; Start 03/27/17 at 09:00 Atorvastatin Calcium (Lipitor) 80 mg DAILY@21 PO Last administered on 21:02; Admin Dose 80 MG; Start 03/27/17 at 21:00 Chlorpromazine (Thorazine) 25 mg TID PO Last administered on 03/30/17 08:51; Admin Dose 25 MG; Start 03/27/17 at 09:00 Docusate Sodium (Colace) 100 mg BID PO Last administered on 03/30/17 08:51; Admin Dose 100 MG; Start 03/27/17 at 09:00 Hydralazine HCl (Apresoline) 10 mg Q4H PRN IV HTN; Start 03/27/17 at 01:00 Morphine Sulfate (morphine) 2 mg Q4H PRN IV PAIN Last administered on 13:53; Admin Dose 2 MG; Start 03/27/17 at 01:00 Ondansetron HCl (Zofran Inj) 4 mg Q6H PRN IV NAUSEA AND/OR VOMITING; Start at 01:00 Miscellaneous Information (Flu Vaccine Previously Dispensed) FLU VACCINE PREVIOU... NOTE PRN XX NOTE; Start 03/27/17 at 02:30 Bisacodyl (Dulcolax Supp) 10 mg DAILY PRN [place] CONSTIPATION; Start 03/27/17 at 04:00 Magnesium Hydroxide (Milk Of Mag) 30 ml BID PRN PO CONSTIPATION; Start at 04:00 Lactulose 20 gm 20 gm DAILY PRN PO CONSTIPATION; Start 03/27/17 at 04:00 Ceftriaxone Sodium (Rocephin) 50 ml @ 100 mls/hr Q24H IVPB Last administered on 03/30/17 12:11; Admin Dose 100 MLS/HR; Start 03/27/17 at 12:00; Stop at 11:59 Pantoprazole (Protonix Tab) 40 mg DAILY@06 PO Last administered on 03/30/17 05:55; Admin Dose 40 MG; Start 03/29/17 at 16:00 Tamsulosin HCl (Flomax) 0.4 mg HS PO ; Start 03/30/17 at 21:00 REGI MARTINEZ MD Mar 30, 2017 12:24
[2017-03-30 20:00] VITALS: BP 133/67; RESP 18
[2017-03-30] MEDS: TAMSULOSIN (SR) 0.4 MG CAP PO SCH (20:29)
[2017-03-30] MEDS: ATORVASTATIN 80 MG TAB PO SCH (20:29)
--- NOTE | 2017-03-30 23:27 | RADRPT ---
PROCEDURE: US pelvis. CLINICAL INDICATION: Urinary retention. TECHNIQUE: Multiple sonographic images of the pelvis were obtained with peña scale and color Dopple r imaging. COMPARISON: None Available. FINDINGS: The bladder is distended and unremarkable. The prevoid volume equals 434 cc and the post void volume equals 329 cc. The prostate measures 3.6 x 3.7 x 4.9 with a calculated volume of 33 cc. IMPRESSION: 1. Postvoid bladder volume of 329 cc, consistent with urinary retention. 2. Prostatic volume measuring 33 cc, which is mildly enlarged. RPTAT: HLBP .Bryan Kwan MD, MD Date Time Electronically viewed and signed by .Bryan Kwan MD, MD on 03/30/2017 23:26 .P/
[2017-03-31 02:00] VITALS: BP 139/65; RESP 18
--- NOTE | 2017-03-31 03:51 | PN ---
DATE: 03/30/2017 SUBJECTIVE: Urinary retention. The patient has not been able to urinate on his own and needed inte rmittent catheterization. OBJECTIVE FINDINGS: VITAL SIGNS: His temperature is 98.7, pulse is 79, respirations 20, blood pressure 139/70. ABDOMEN: Soft. There is no abdominal tenderness. GENITOURINARY: The genital area is normal. LABORATORY DATA: His urine culture shows coagulase negative staph, over 100,000 colonies per mL and it is sensitive to Cipro, cefazolin. It is only resistant to penicillin G. The patient has not vo ided urine today and his in and out catheterization drained one time 300 mL, another time 500 mL. MEDICATIONS: 1. Tamsulosin. 2. Pantoprazole. 3. Atorvastatin. 4. Ceftriaxone. 5. Amlodipine. 6. Aspirin. 7. Thorazine. 8. Colace. 9. Dulcolax. 10. Milk of magnesia p.r.n. 11. Lactulose p.r.n. 12. Hydralazine p.r.n. 13. Morphine. 14. Zofran p.r.n. IMPRESSION: Urinary retention, most likely related to his stroke. PLAN: Do a pelvic ultrasound and check how big prostate and if that is not enlarged, then we could put him on urecholine and see if that would help, in addition to the tamsulosin. Dictated By: RYANN CONNELL MD BB/NTS Conf#: [id number] DID#: [id number] CC: REGI MARTINEZ MD;*EndCC*
[2017-03-31] MEDS: PANTOPRAZOLE (EC) 40 MG TAB PO SCH (05:56)
[2017-03-31 07:00] VITALS: BP 128/68; RESP 18
[2017-03-31] MEDS: CHLORPROMAZINE 25 MG TAB PO SCH ×3 (08:30→21:49)
[2017-03-31] MEDS: DOCUSATE SODIUM 100 MG CAP PO SCH ×2 (08:30→21:49)
[2017-03-31] MEDS: ASPIRIN 81 MG TAB PO SCH (08:30)
[2017-03-31] MEDS: AMLODIPINE 10 MG TAB PO SCH (08:30)
--- NOTE | 2017-03-31 11:57 | CONS ---
Date/Time of Note Date/Time of Note DATE: 03/31/17 TIME: 11:56 Consult Date/Type/Reason Admit Date/Time Mar 26, 2017 at 21:40 Initial Consult Date 03/28/17 Type of Consultation: urlogy Ordering Provider: [facility]DEN [facility] Subjective Comfortable Objective pulm-cta min/cga ambulation 150 feet Vital Signs Date Time Temp Pulse Resp B/P Pulse Ox O2 Delivery O2 Flow Rate FiO2 03/31/17 07:00 98.5 85 18 128/68 95 03/30/17 08:21 Room Air Intake and Output 03/30/17 03/30/17 03/31/17 15:00 23:00 07:00 Intake Total 50 ml Output Total 800 ml 580 ml Balance -750 ml -580 ml Results/Medications Result Diagram: 03/27/17 0643 03/27/17 0642 Medications Current Medications Acetaminophen (Tylenol Tab) 650 mg Q4H PRN PO PAIN AND OR ELEVATED TEMP; Start 03/27/17 at 01:00 Amlodipine Besylate (Norvasc) 10 mg DAILY PO Last administered on 03/31/17 08 :30; Admin Dose 10 MG; Start 03/27/17 at 09:00 Aspirin (Aspirin) 81 mg DAILY PO Last administered on 03/31/17 08:30; Admin Dose 81 MG; Start 03/27/17 at 09:00 Atorvastatin Calcium (Lipitor) 80 mg DAILY@21 PO Last administered on 20:29; Admin Dose 80 MG; Start 03/27/17 at 21:00 Chlorpromazine (Thorazine) 25 mg TID PO Last administered on 03/31/17 08:30; Admin Dose 25 MG; Start 03/27/17 at 09:00 Docusate Sodium (Colace) 100 mg BID PO Last administered on 03/31/17 08:30; Admin Dose 100 MG; Start 03/27/17 at 09:00 Hydralazine HCl (Apresoline) 10 mg Q4H PRN IV HTN; Start 03/27/17 at 01:00 Morphine Sulfate (morphine) 2 mg Q4H PRN IV PAIN Last administered on 13:53; Admin Dose 2 MG; Start 03/27/17 at 01:00 Ondansetron HCl (Zofran Inj) 4 mg Q6H PRN IV NAUSEA AND/OR VOMITING; Start at 01:00 Miscellaneous Information (Flu Vaccine Previously Dispensed) FLU VACCINE PREVIOU... NOTE PRN XX NOTE; Start 03/27/17 at 02:30 Bisacodyl (Dulcolax Supp) 10 mg DAILY PRN [place] CONSTIPATION; Start 03/27/17 at 04:00 Magnesium Hydroxide (Milk Of Mag) 30 ml BID PRN PO CONSTIPATION; Start at 04:00 Lactulose 20 gm 20 gm DAILY PRN PO CONSTIPATION; Start 03/27/17 at 04:00 Ceftriaxone Sodium (Rocephin) 50 ml @ 100 mls/hr Q24H IVPB Last administered on 03/30/17 12:11; Admin Dose 100 MLS/HR; Start 03/27/17 at 12:00; Stop at 11:59 Pantoprazole (Protonix Tab) 40 mg DAILY@06 PO Last administered on 03/31/17 05:56; Admin Dose 40 MG; Start 03/29/17 at 16:00 Tamsulosin HCl (Flomax) 0.4 mg HS PO Last administered on 03/30/17 20:29; Admin Dose 0.4 MG; Start 03/30/17 at 21:00 Assessment/Plan Additional Assessment/Plan Rehab- 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 Contineu rehab activities Hypertension. Urinary retention-f/b urology REGI MARTINEZ MD Mar 31, 2017 11:57
[2017-03-31] MEDS: LACTULOSE 30ML CUP PO PRN (12:48)
[2017-03-31] MEDS: CEFTRIAXONE 1 GM/50 ML (PMX) 50 ML IVPB SCH (12:49)
--- NOTE | 2017-03-31 13:03 | CONS ---
Date/Time of Note Date/Time of Note DATE: 03/31/17 TIME: 13:01 Assessment/Plan Assessment/Plan Chief Complaint/Hosp Course 76-year-old male with acute CVA, transferred to acute rehabilitation unit from [facility] for further complex interdisciplinary rehab care. 1. 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 -Status post neurology and neurosurgical evaluation. Recommended medical management with aspirin, statin and blood pressure medications. 2. Hypertension. -Continue antihypertensives. Goal blood pressure ~ 140/90 3. Coagulase-negative Staphylococcus urinary tract infection. -Continue [id number] days 4. Debility secondary to #1. -Continue with PT/OT evaluation and treatment 5. History of psychiatric illness. -Continue home medications. 6. GERD. Stable. -Continue Protonix. 7. Urinary retention likely secondary to CVA -On Flomax. Pelvic ultrasound noted. Follow-up with urology recommendations. Patient was seen in collaboration with . Problems: Consultation Date/Type/Reason Admit Date/Time Mar 26, 2017 at 21:40 Type of Consultation: urlogy Referring Provider: YASSINE HAYDEN MD, [facility] 24 HR Interval Summary Free Text/Dictation Patient continued to have urinary retention requiring in and out catheterization. Exam/Review of Systems Vital Signs Vitals Vital Signs Date Time Temp Pulse Resp B/P Pulse Ox O2 Delivery O2 Flow Rate FiO2 03/31/17 07:00 98.5 85 18 128/68 95 03/30/17 08:21 Room Air Intake and Output 03/30/17 03/30/17 03/31/17 15:00 23:00 07:00 Intake Total 50 ml Output Total 800 ml 580 ml Balance -750 ml -580 ml Exam General: Well developed,adequately built, not in any acute distress . HEENT: Normocephalic, Atraumatic, No laceration or hematoma; Eyes: PEERL, Conjunctiva clear, Anicteric sclera Neck: Supple without any lymphadenopathy, nontender, no JVD, no carotid bruits, trachea midline, no thyromegaly Cardiac: S1, S2 auscultated, regular rhythm and rate, no mumurs or gallop Pulmonary: Normal respiratory effort. Chest clear to auscultation bilaterally, no adventitious breath sounds GI: Abdomen normal to inspection. Soft, non tender, non- distended, no masses, no rebound tenderness or guarding. Bowel sounds active on all four quadrants Genitourinary: Deferred Extremities: Weakness to right upper extremities. No cyanosis, clubbing, or edema. Pulses [2+] bilaterally. Full ROM on all four extremities. No focal weakness appreciated. Neurologic: Patient appears sleepy mostly. However, he seems alert to person, place, time, and situation. Affect depressed, intact sensation. Skin: Clean,dry, and intact. No ecchymosis, no rashes, or lesions Results Result Diagram: 03/27/1764203/27/17 0642 Medications Medications Current Medications Acetaminophen (Tylenol Tab) 650 mg Q4H PRN PO PAIN AND OR ELEVATED TEMP; Start 03/27/17 at 01:00 Amlodipine Besylate (Norvasc) 10 mg DAILY PO Last administered on 03/31/17 08 :30; Admin Dose 10 MG; Start 03/27/17 at 09:00 Aspirin (Aspirin) 81 mg DAILY PO Last administered on 03/31/17 08:30; Admin Dose 81 MG; Start 03/27/17 at 09:00 Atorvastatin Calcium (Lipitor) 80 mg DAILY@21 PO Last administered on 20:29; Admin Dose 80 MG; Start 03/27/17 at 21:00 Chlorpromazine (Thorazine) 25 mg TID PO Last administered on 03/31/17 12:48; Admin Dose 25 MG; Start 03/27/17 at 09:00 Docusate Sodium (Colace) 100 mg BID PO Last administered on 03/31/17 08:30; Admin Dose 100 MG; Start 03/27/17 at 09:00 Hydralazine HCl (Apresoline) 10 mg Q4H PRN IV HTN; Start 03/27/17 at 01:00 Morphine Sulfate (morphine) 2 mg Q4H PRN IV PAIN Last administered on 13:53; Admin Dose 2 MG; Start 03/27/17 at 01:00 Ondansetron HCl (Zofran Inj) 4 mg Q6H PRN IV NAUSEA AND/OR VOMITING; Start at 01:00 Miscellaneous Information (Flu Vaccine Previously Dispensed) FLU VACCINE PREVIOU... NOTE PRN XX NOTE; Start 03/27/17 at 02:30 Bisacodyl (Dulcolax Supp) 10 mg DAILY PRN [place] CONSTIPATION; Start 03/27/17 at 04:00 Magnesium Hydroxide (Milk Of Mag) 30 ml BID PRN PO CONSTIPATION; Start at 04:00 Lactulose 20 gm 20 gm DAILY PRN PO CONSTIPATION Last administered on 12:48; Admin Dose 20 GM; Start 03/27/17 at 04:00 Ceftriaxone Sodium (Rocephin) 50 ml @ 100 mls/hr Q24H IVPB Last administered on 03/31/17 12:49; Admin Dose 100 MLS/HR; Start 03/27/17 at 12:00; Stop at 11:59 Pantoprazole (Protonix Tab) 40 mg DAILY@06 PO Last administered on 03/31/17 05:56; Admin Dose 40 MG; Start 03/29/17 at 16:00 Tamsulosin HCl (Flomax) 0.4 mg HS PO Last administered on 03/30/17 20:29; Admin Dose 0.4 MG; Start 03/30/17 at 21:00 MISTY GALAN NP Mar 31, 2017 13:03
[2017-03-31 20:00] VITALS: BP 153/80; RESP 20
[2017-03-31] MEDS: TAMSULOSIN (SR) 0.4 MG CAP PO SCH (21:49)
[2017-03-31] MEDS: ATORVASTATIN 80 MG TAB PO SCH (21:49)
[2017-04-01 02:00] VITALS: BP 138/72; RESP 20
--- NOTE | 2017-04-01 03:18 | PN ---
DATE: 03/31/2017 SUBJECTIVE PROBLEM: Incomplete bladder emptying and history of stroke with local mass effect. The patient did not undergo any surgery and he has required straight catheterization, and last time bein g earlier during the night last night, and about 700 mL drained out. OBJECTIVE FINDINGS: VITAL SIGNS: His temperature is 98.5, respirations 18, blood pressure 128/68, pulse is 85. ABDOMEN: Soft. The bladder is not palpable or percussible. LABORATORY DATA: No new labs for today. IMPRESSION: High postvoid residual, but at the present there is no retention, however. We will con tinue checking his bladder with a bladder scan and do a straight catheterization for a bladder volum e of over 500 or for postvoid residual of over 300. Dictated By: RYANN CONNELL MD BB/NTS Conf#: [id number] DID#: [id number] CC: REGI MARTINEZ MD;*EndCC*
[2017-04-01] MEDS: PANTOPRAZOLE (EC) 40 MG TAB PO SCH (06:14)
[2017-04-01 07:00] VITALS: BP 140/72; RESP 18
[2017-04-01] MEDS: ASPIRIN 81 MG TAB PO SCH (09:26)
[2017-04-01] MEDS: CHLORPROMAZINE 25 MG TAB PO SCH ×3 (09:26→20:14)
[2017-04-01] MEDS: DOCUSATE SODIUM 100 MG CAP PO SCH ×2 (09:26→21:22)
[2017-04-01] MEDS: AMLODIPINE 10 MG TAB PO SCH (09:26)
--- NOTE | 2017-04-01 11:39 | CONS ---
Date/Time of Note Date/Time of Note DATE: 04/01/17 TIME: 11:38 Assessment/Plan Assessment/Plan Chief Complaint/Hosp Course 76-year-old male with acute CVA, transferred to acute rehabilitation unit from [facility] for further complex interdisciplinary rehab care. 1. 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 -Status post neurology and neurosurgical evaluation. Recommended medical management with aspirin, statin and blood pressure medications. 2. Hypertension. -Continue antihypertensives. Goal blood pressure ~ 140/90 3. Coagulase-negative Staphylococcus urinary tract infection. -Continue [id number] days, last dose 04/03/2017. 4. Debility secondary to #1. -Continue with PT/OT evaluation and treatment 5. History of psychiatric illness. -Continue home medications. 6. GERD. Stable. -Continue Protonix. 7. Urinary retention likely secondary to CVA -On Flomax. Pelvic ultrasound noted. Follow-up with urology recommendations. Patient was seen in collaboration with . Problems: Consultation Date/Type/Reason Admit Date/Time Mar 26, 2017 at 21:40 Type of Consultation: urlogy Referring Provider: YASSINE HAYDEN MD, [facility] 24 HR Interval Summary Free Text/Dictation Patient with continued inability to void. With good participation in rehab activities. Exam/Review of Systems Vital Signs Vitals Vital Signs Date Time Temp Pulse Resp B/P Pulse Ox O2 Delivery O2 Flow Rate FiO2 04/01/17 07:00 98.5 85 18 140/72 95 03/30/17 08:21 Room Air Intake and Output 03/31/17 03/31/17 04/01/17 14:59 22:59 06:59 Intake Total 50 ml 1200 ml 300 ml Output Total 700 ml 1100 ml Balance 50 ml 500 ml -800 ml Exam General: Well developed,adequately built, not in any acute distress . HEENT: Normocephalic, Atraumatic, No laceration or hematoma; Eyes: PEERL, Conjunctiva clear, Anicteric sclera Neck: Supple without any lymphadenopathy, nontender, no JVD, no carotid bruits, trachea midline, no thyromegaly Cardiac: S1, S2 auscultated, regular rhythm and rate, no mumurs or gallop Pulmonary: Normal respiratory effort. Chest clear to auscultation bilaterally, no adventitious breath sounds GI: Abdomen normal to inspection. Soft, non tender, non- distended, no masses, no rebound tenderness or guarding. Bowel sounds active on all four quadrants Genitourinary: Deferred Extremities: Weakness to right upper extremities. No cyanosis, clubbing, or edema. Pulses [2+] bilaterally. Full ROM on all four extremities. No focal weakness appreciated. Neurologic: Patient appears sleepy mostly. However, he seems alert to person, place, time, and situation. Affect depressed, intact sensation. Skin: Clean,dry, and intact. No ecchymosis, no rashes, or lesions Medications Medications Current Medications Acetaminophen (Tylenol Tab) 650 mg Q4H PRN PO PAIN AND OR ELEVATED TEMP; Start 03/27/17 at 01:00 Amlodipine Besylate (Norvasc) 10 mg DAILY PO Last administered on 04/01/17 09 :26; Admin Dose 10 MG; Start 03/27/17 at 09:00 Aspirin (Aspirin) 81 mg DAILY PO Last administered on 04/01/17 09:26; Admin Dose 81 MG; Start 03/27/17 at 09:00 Atorvastatin Calcium (Lipitor) 80 mg DAILY@21 PO Last administered on 21:49; Admin Dose 80 MG; Start 03/27/17 at 21:00 Chlorpromazine (Thorazine) 25 mg TID PO Last administered on 04/01/17 09:26; Admin Dose 25 MG; Start 03/27/17 at 09:00 Docusate Sodium (Colace) 100 mg BID PO Last administered on 04/01/17 09:26; Admin Dose 100 MG; Start 03/27/17 at 09:00 Hydralazine HCl (Apresoline) 10 mg Q4H PRN IV HTN; Start 03/27/17 at 01:00 Morphine Sulfate (morphine) 2 mg Q4H PRN IV PAIN Last administered on 13:53; Admin Dose 2 MG; Start 03/27/17 at 01:00 Ondansetron HCl (Zofran Inj) 4 mg Q6H PRN IV NAUSEA AND/OR VOMITING; Start at 01:00 Miscellaneous Information (Flu Vaccine Previously Dispensed) FLU VACCINE PREVIOU... NOTE PRN XX NOTE; Start 03/27/17 at 02:30 Bisacodyl (Dulcolax Supp) 10 mg DAILY PRN [place] CONSTIPATION; Start 03/27/17 at 04:00 Magnesium Hydroxide (Milk Of Mag) 30 ml BID PRN PO CONSTIPATION; Start at 04:00 Lactulose 20 gm 20 gm DAILY PRN PO CONSTIPATION Last administered on 12:48; Admin Dose 20 GM; Start 03/27/17 at 04:00 Ceftriaxone Sodium (Rocephin) 50 ml @ 100 mls/hr Q24H IVPB Last administered on 03/31/17 12:49; Admin Dose 100 MLS/HR; Start 03/27/17 at 12:00; Stop at 11:59 Pantoprazole (Protonix Tab) 40 mg DAILY@06 PO Last administered on 04/01/17 06:14; Admin Dose 40 MG; Start 03/29/17 at 16:00 Tamsulosin HCl (Flomax) 0.4 mg HS PO Last administered on 03/31/17 21:49; Admin Dose 0.4 MG; Start 03/30/17 at 21:00 MISTY GALAN NP Apr 01, 2017 11:39
--- NOTE | 2017-04-01 12:48 | CONS ---
Date/Time of Note Date/Time of Note DATE: 04/01/17 TIME: 12:48 Consult Date/Type/Reason Admit Date/Time Mar 26, 2017 at 21:40 Initial Consult Date 03/28/17 Type of Consultation: urlogy Ordering Provider: YASSINE HAYDEN [facility], [facility] Subjective In good spirits Objective pulm-cta sba ambulation 150 feet Vital Signs Date Time Temp Pulse Resp B/P Pulse Ox O2 Delivery O2 Flow Rate FiO2 04/01/17 07:00 98.5 85 18 140/72 95 03/30/17 08:21 Room Air Intake and Output 03/31/17 03/31/17 04/01/17 15:00 23:00 07:00 Intake Total 50 ml 1200 ml 300 ml Output Total 700 ml 1100 ml Balance 50 ml 500 ml -800 ml Results/Medications Medications Current Medications Acetaminophen (Tylenol Tab) 650 mg Q4H PRN PO PAIN AND OR ELEVATED TEMP; Start 03/27/17 at 01:00 Amlodipine Besylate (Norvasc) 10 mg DAILY PO Last administered on 04/01/17 09 :26; Admin Dose 10 MG; Start 03/27/17 at 09:00 Aspirin (Aspirin) 81 mg DAILY PO Last administered on 04/01/17 09:26; Admin Dose 81 MG; Start 03/27/17 at 09:00 Atorvastatin Calcium (Lipitor) 80 mg DAILY@21 PO Last administered on 21:49; Admin Dose 80 MG; Start 03/27/17 at 21:00 Chlorpromazine (Thorazine) 25 mg TID PO Last administered on 04/01/17 09:26; Admin Dose 25 MG; Start 03/27/17 at 09:00 Docusate Sodium (Colace) 100 mg BID PO Last administered on 04/01/17 09:26; Admin Dose 100 MG; Start 03/27/17 at 09:00 Hydralazine HCl (Apresoline) 10 mg Q4H PRN IV HTN; Start 03/27/17 at 01:00 Morphine Sulfate (morphine) 2 mg Q4H PRN IV PAIN Last administered on 13:53; Admin Dose 2 MG; Start 03/27/17 at 01:00 Ondansetron HCl (Zofran Inj) 4 mg Q6H PRN IV NAUSEA AND/OR VOMITING; Start at 01:00 Miscellaneous Information (Flu Vaccine Previously Dispensed) FLU VACCINE PREVIOU... NOTE PRN XX NOTE; Start 03/27/17 at 02:30 Bisacodyl (Dulcolax Supp) 10 mg DAILY PRN [place] CONSTIPATION; Start 03/27/17 at 04:00 Magnesium Hydroxide (Milk Of Mag) 30 ml BID PRN PO CONSTIPATION; Start at 04:00 Lactulose 20 gm 20 gm DAILY PRN PO CONSTIPATION Last administered on 12:48; Admin Dose 20 GM; Start 03/27/17 at 04:00 Ceftriaxone Sodium (Rocephin) 50 ml @ 100 mls/hr Q24H IVPB Last administered on 03/31/17 12:49; Admin Dose 100 MLS/HR; Start 03/27/17 at 12:00; Stop at 11:59 Pantoprazole (Protonix Tab) 40 mg DAILY@06 PO Last administered on 04/01/17 06:14; Admin Dose 40 MG; Start 03/29/17 at 16:00 Tamsulosin HCl (Flomax) 0.4 mg HS PO Last administered on 03/31/17 21:49; Admin Dose 0.4 MG; Start 03/30/17 at 21:00 Assessment/Plan Additional Assessment/Plan Rehab- 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 Continue current treatment plan Hypertension. Urinary retention-f/b urology REGI MARTINEZ MD Apr 01, 2017 12:48
[2017-04-01 20:00] VITALS: BP 128/71; RESP 18
[2017-04-01] MEDS: CEFTRIAXONE 1 GM/50 ML (PMX) 50 ML IVPB SCH (20:08)
[2017-04-01] MEDS: TAMSULOSIN (SR) 0.4 MG CAP PO SCH (21:22)
[2017-04-01] MEDS: ATORVASTATIN 80 MG TAB PO SCH (21:22)
[2017-04-02 02:00] VITALS: BP 132/70; RESP 18
--- NOTE | 2017-04-02 02:28 | PN ---
DATE: 04/01/2017 SUBJECTIVE: Urinary retention. The patient is not making any urine on his own and he has been gett ing straight catheterization and the , who is a previous nurse, is also helping and she is doing the catheterization for him. OBJECTIVE: VITAL SIGNS: His temperature is 98.5, pulse 85, respiration 18, blood pressure 140/72. ABDOMEN: Soft. There is no abdominal mass palpable. LABORATORY DATA: The patient was catheterized last night for 600 mL and today he was catheterized f or 500 mL. IMPRESSION: Neurogenic bladder and urinary retention. The patient is already on tamsulosin with th e hope that that would help but most likely the retention is because of neurogenic bladder. PLAN: To continue doing of the in-and-out catheterization and the should be able to do it as s he demonstrated today that she is doing very good technique. Dictated By: RYANN HENRY/ROSE Conf#: [id number] DID#: [id number]
[2017-04-02] MEDS: PANTOPRAZOLE (EC) 40 MG TAB PO SCH (06:08)
[2017-04-02 07:30] VITALS: BP 141/75; RESP 18
[2017-04-02] MEDS: DOCUSATE SODIUM 100 MG CAP PO SCH ×2 (09:38→21:27)
[2017-04-02] MEDS: ASPIRIN 81 MG TAB PO SCH (09:38)
[2017-04-02] MEDS: CHLORPROMAZINE 25 MG TAB PO SCH ×3 (09:39→21:27)
[2017-04-02] MEDS: AMLODIPINE 10 MG TAB PO SCH (09:39)
--- NOTE | 2017-04-02 11:40 | CONS ---
Date/Time of Note Date/Time of Note DATE: 04/02/17 TIME: 11:39 Assessment/Plan Assessment/Plan Chief Complaint/Hosp Course 76-year-old male with acute CVA, transferred to acute rehabilitation unit from [facility] for further complex interdisciplinary rehab care. 1. 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 -Status post neurology and neurosurgical evaluation. Recommended medical management with aspirin, statin and blood pressure medications. 2. Hypertension. -Continue antihypertensives. Goal blood pressure ~ 140/90 3. Coagulase-negative Staphylococcus urinary tract infection. -Continue [id number] days, last dose 04/03/2017. 4. Debility secondary to #1. -Continue with PT/OT evaluation and treatment 5. History of psychiatric illness. -Continue home medications. 6. GERD. Stable. -Continue Protonix. 7. Urinary retention/neurogenic bladder likely secondary to CVA -On Flomax. Urology on board and continue with in and out catheterization as needed. Patient was seen in collaboration with . Problems: Consultation Date/Type/Reason Admit Date/Time Mar 26, 2017 at 21:40 Type of Consultation: urlogy Referring Provider: YASSINE HAYDEN MD, [facility] 24 HR Interval Summary Free Text/Dictation No acute distress. Patient continued to have urinary retention. Exam/Review of Systems Vital Signs Vitals Vital Signs Date Time Temp Pulse Resp B/P Pulse Ox O2 Delivery O2 Flow Rate FiO2 04/02/17 07:30 98.9 84 18 141/75 93 03/30/17 08:21 Room Air Intake and Output 04/01/17 04/01/17 04/02/17 15:00 23:00 07:00 Intake Total 1350 ml 1040 ml Output Total 450 ml 1150 ml Balance 900 ml -110 ml Exam General: Well developed,adequately built, not in any acute distress . HEENT: Normocephalic, Atraumatic, No laceration or hematoma; Eyes: PEERL, Conjunctiva clear, Anicteric sclera Neck: Supple without any lymphadenopathy, nontender, no JVD, no carotid bruits, trachea midline, no thyromegaly Cardiac: S1, S2 auscultated, regular rhythm and rate, no mumurs or gallop Pulmonary: Normal respiratory effort. Chest clear to auscultation bilaterally, no adventitious breath sounds GI: Abdomen normal to inspection. Soft, non tender, non- distended, no masses, no rebound tenderness or guarding. Bowel sounds active on all four quadrants Genitourinary: Deferred Extremities: Weakness to right upper extremities. No cyanosis, clubbing, or edema. Pulses [2+] bilaterally. Full ROM on all four extremities. No focal weakness appreciated. Neurologic: Patient appears sleepy mostly. However, he seems alert to person, place, time, and situation. Affect depressed, intact sensation. Skin: Clean,dry, and intact. No ecchymosis, no rashes, or lesions Medications Medications Current Medications Acetaminophen (Tylenol Tab) 650 mg Q4H PRN PO PAIN AND OR ELEVATED TEMP; Start 03/27/17 at 01:00 Amlodipine Besylate (Norvasc) 10 mg DAILY PO Last administered on 04/02/17 09 :39; Admin Dose 10 MG; Start 03/27/17 at 09:00 Aspirin (Aspirin) 81 mg DAILY PO Last administered on 04/02/17 09:38; Admin Dose 81 MG; Start 03/27/17 at 09:00 Atorvastatin Calcium (Lipitor) 80 mg DAILY@21 PO Last administered on 21:22; Admin Dose 80 MG; Start 03/27/17 at 21:00 Chlorpromazine (Thorazine) 25 mg TID PO Last administered on 04/02/17 09:39; Admin Dose 25 MG; Start 03/27/17 at 09:00 Docusate Sodium (Colace) 100 mg BID PO Last administered on 04/02/17 09:38; Admin Dose 100 MG; Start 03/27/17 at 09:00 Hydralazine HCl (Apresoline) 10 mg Q4H PRN IV HTN; Start 03/27/17 at 01:00 Morphine Sulfate (morphine) 2 mg Q4H PRN IV PAIN Last administered on 13:53; Admin Dose 2 MG; Start 03/27/17 at 01:00 Ondansetron HCl (Zofran Inj) 4 mg Q6H PRN IV NAUSEA AND/OR VOMITING; Start at 01:00 Miscellaneous Information (Flu Vaccine Previously Dispensed) FLU VACCINE PREVIOU... NOTE PRN XX NOTE; Start 03/27/17 at 02:30 Bisacodyl (Dulcolax Supp) 10 mg DAILY PRN [place] CONSTIPATION; Start 03/27/17 at 04:00 Magnesium Hydroxide (Milk Of Mag) 30 ml BID PRN PO CONSTIPATION; Start at 04:00 Lactulose 20 gm 20 gm DAILY PRN PO CONSTIPATION Last administered on 12:48; Admin Dose 20 GM; Start 03/27/17 at 04:00 Ceftriaxone Sodium (Rocephin) 50 ml @ 100 mls/hr Q24H IVPB Last administered on 04/01/17 20:08; Admin Dose 100 MLS/HR; Start 03/27/17 at 12:00; Stop at 11:59 Pantoprazole (Protonix Tab) 40 mg DAILY@06 PO Last administered on 04/02/17 06:08; Admin Dose 40 MG; Start 03/29/17 at 16:00 Tamsulosin HCl (Flomax) 0.4 mg HS PO Last administered on 04/01/17 21:22; Admin Dose 0.4 MG; Start 03/30/17 at 21:00 MISTY GALAN NP Apr 02, 2017 11:40
[2017-04-02] MEDS: CEFTRIAXONE 1 GM/50 ML (PMX) 50 ML IVPB SCH (12:00)
--- NOTE | 2017-04-02 13:15 | CONS ---
Date/Time of Note Date/Time of Note DATE: 04/02/17 TIME: : Consult Date/Type/Reason Admit Date/Time Mar 26, 2017 at 21:40 Initial Consult Date 03/28/17 Type of Consultation: urlogy Ordering Provider: [facility]DEN [facility], [facility] Subjective Motivated for activities Objective pulm-cta sba assist Vital Signs Date Time Temp Pulse Resp B/P Pulse Ox O2 Delivery O2 Flow Rate FiO2 04/02/17 07:30 98.9 84 18 141/75 93 03/30/17 08:21 Room Air Intake and Output 04/01/17 04/01/17 04/02/17 15:00 23:00 07:00 Intake Total 1350 ml 1040 ml Output Total 450 ml 1150 ml Balance 900 ml -110 ml Results/Medications Medications Current Medications Acetaminophen (Tylenol Tab) 650 mg Q4H PRN PO PAIN AND OR ELEVATED TEMP; Start 03/27/17 at 01:00 Amlodipine Besylate (Norvasc) 10 mg DAILY PO Last administered on 04/02/17 09 :39; Admin Dose 10 MG; Start 03/27/17 at 09:00 Aspirin (Aspirin) 81 mg DAILY PO Last administered on 04/02/17 09:38; Admin Dose 81 MG; Start 03/27/17 at 09:00 Atorvastatin Calcium (Lipitor) 80 mg DAILY@21 PO Last administered on 21:22; Admin Dose 80 MG; Start 03/27/17 at 21:00 Chlorpromazine (Thorazine) 25 mg TID PO Last administered on 04/02/17 09:39; Admin Dose 25 MG; Start 03/27/17 at 09:00 Docusate Sodium (Colace) 100 mg BID PO Last administered on 04/02/17 09:38; Admin Dose 100 MG; Start 03/27/17 at 09:00 Hydralazine HCl (Apresoline) 10 mg Q4H PRN IV HTN; Start 03/27/17 at 01:00 Morphine Sulfate (morphine) 2 mg Q4H PRN IV PAIN Last administered on 13:53; Admin Dose 2 MG; Start 03/27/17 at 01:00 Ondansetron HCl (Zofran Inj) 4 mg Q6H PRN IV NAUSEA AND/OR VOMITING; Start at 01:00 Miscellaneous Information (Flu Vaccine Previously Dispensed) FLU VACCINE PREVIOU... NOTE PRN XX NOTE; Start 03/27/17 at 02:30 Bisacodyl (Dulcolax Supp) 10 mg DAILY PRN [place] CONSTIPATION; Start 03/27/17 at 04:00 Magnesium Hydroxide (Milk Of Mag) 30 ml BID PRN PO CONSTIPATION; Start at 04:00 Lactulose 20 gm 20 gm DAILY PRN PO CONSTIPATION Last administered on 12:48; Admin Dose 20 GM; Start 03/27/17 at 04:00 Ceftriaxone Sodium (Rocephin) 50 ml @ 100 mls/hr Q24H IVPB Last administered on 04/01/17 20:08; Admin Dose 100 MLS/HR; Start 03/27/17 at 12:00; Stop at 11:59 Pantoprazole (Protonix Tab) 40 mg DAILY@06 PO Last administered on 04/02/17 06:08; Admin Dose 40 MG; Start 03/29/17 at 16:00 Tamsulosin HCl (Flomax) 0.4 mg HS PO Last administered on 04/01/17 21:22; Admin Dose 0.4 MG; Start 03/30/17 at 21:00 Assessment/Plan Additional Assessment/Plan Rehab- 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 Continue current treatment plan Hypertension. Urinary retention-f/b urology REGI MARTINEZ MD Apr 02, 2017 13:15
[2017-04-02 14:00] VITALS: BP 143/73; RESP 18
--- NOTE | 2017-04-02 18:26 | PN ---
Date/Time of Note Date/Time of Note DATE: 04/02/17 TIME: 18:20 Assessment/Plan VTE Prophylaxis VTE Prophylaxis Intervention: SCD's Lines/Catheters IV Catheter Type (from [facility]): [place] Urinary Cath still in place: No Assessment/Plan Chief Complaint/Hosp Course Urinary retention, check his voiding, his postvoid residual, do straight cath for a postvoid residual of 300 mL or if bladder scan shows over 500 mL and he does not void. The retention is most likely secondary to his recent stroke Urinary tract infection for which she is already on antibiotic. His has been helping and doing the straight cath for him, last time it was done she drained about 400 mL Problems: Subjective 24 Hr Interval Summary Constitutional: no complaints Eyes: no complaints ENT: no complaints Respiratory: no complaints Cardiovascular: no complaints Gastrointestinal: no complaints Genitourinary: other (Urinary retention) Musculoskeletal: no complaints, other Skin: no complaints Neurologic: other (Recent CVA) Endocrine: no complaints Lymphatic: no complaints Psychological: nl mood/affect Exam/Review of Systems Vital Signs Vitals Vital Signs Date Time Temp Pulse Resp B/P Pulse Ox O2 Delivery O2 Flow Rate FiO2 04/02/17 14:00 98.2 86 18 143/73 93 03/30/17 08:21 Room Air Intake and Output 04/01/17 04/01/17 04/02/17 15:00 23:00 07:00 Intake Total 1350 ml 1040 ml Output Total 450 ml 1150 ml Balance 900 ml -110 ml Exam Constitutional: alert Psych: no complaints Head: normocephalic Eyes: nl conjunctiva ENMT: nl external ears & nose Neck: supple Respiratory: normal air movement Cardiovascular: regular rate and rhythm, No diastolic murmur Gastrointestinal: soft Genitourinary - Male: nl penis, nl scrotum, No CVA tenderness Musculoskeletal: nl extremities to inspection Medications Medications Current Medications Acetaminophen (Tylenol Tab) 650 mg Q4H PRN PO PAIN AND OR ELEVATED TEMP; Start 03/27/17 at 01:00 Amlodipine Besylate (Norvasc) 10 mg DAILY PO Last administered on 04/02/17 09 :39; Admin Dose 10 MG; Start 03/27/17 at 09:00 Aspirin (Aspirin) 81 mg DAILY PO Last administered on 04/02/17 09:38; Admin Dose 81 MG; Start 03/27/17 at 09:00 Atorvastatin Calcium (Lipitor) 80 mg DAILY@21 PO Last administered on 21:22; Admin Dose 80 MG; Start 03/27/17 at 21:00 Chlorpromazine (Thorazine) 25 mg TID PO Last administered on 04/02/17 13:55; Admin Dose 25 MG; Start 03/27/17 at 09:00 Docusate Sodium (Colace) 100 mg BID PO Last administered on 04/02/17 09:38; Admin Dose 100 MG; Start 03/27/17 at 09:00 Hydralazine HCl (Apresoline) 10 mg Q4H PRN IV HTN; Start 03/27/17 at 01:00 Morphine Sulfate (morphine) 2 mg Q4H PRN IV PAIN Last administered on 13:53; Admin Dose 2 MG; Start 03/27/17 at 01:00 Ondansetron HCl (Zofran Inj) 4 mg Q6H PRN IV NAUSEA AND/OR VOMITING; Start at 01:00 Miscellaneous Information (Flu Vaccine Previously Dispensed) FLU VACCINE PREVIOU... NOTE PRN XX NOTE; Start 03/27/17 at 02:30 Bisacodyl (Dulcolax Supp) 10 mg DAILY PRN [place] CONSTIPATION; Start 03/27/17 at 04:00 Magnesium Hydroxide (Milk Of Mag) 30 ml BID PRN PO CONSTIPATION; Start at 04:00 Lactulose 20 gm 20 gm DAILY PRN PO CONSTIPATION Last administered on 12:48; Admin Dose 20 GM; Start 03/27/17 at 04:00 Ceftriaxone Sodium (Rocephin) 50 ml @ 100 mls/hr Q24H IVPB Last administered on 04/02/17 12:00; Admin Dose 100 MLS/HR; Start 03/27/17 at 12:00; Stop at 11:59 Pantoprazole (Protonix Tab) 40 mg DAILY@06 PO Last administered on 04/02/17 06:08; Admin Dose 40 MG; Start 03/29/17 at 16:00 Tamsulosin HCl (Flomax) 0.4 mg HS PO Last administered on 10/18/17at 21:22; Admin Dose 0.4 MG; Start 03/30/17 at 21:00 RYANN CONNELL MD Apr 02, 2017 18:26
[2017-04-02 20:00] VITALS: BP 158/81; RESP 18
[2017-04-02] MEDS: ATORVASTATIN 80 MG TAB PO SCH (21:27)
[2017-04-02] MEDS: TAMSULOSIN (SR) 0.4 MG CAP PO SCH (21:27)
[2017-04-03 02:00] VITALS: BP 128/75; RESP 18
[2017-04-03] MEDS: PANTOPRAZOLE (EC) 40 MG TAB PO SCH (06:40)
[2017-04-03 08:10] VITALS: BP 150/79; RESP 18
[2017-04-03] MEDS: DOCUSATE SODIUM 100 MG CAP PO SCH ×2 (09:06→21:45)
[2017-04-03] MEDS: AMLODIPINE 10 MG TAB PO SCH (09:06)
[2017-04-03] MEDS: ASPIRIN 81 MG TAB PO SCH (09:06)
[2017-04-03] MEDS: CHLORPROMAZINE 25 MG TAB PO SCH ×3 (09:06→21:46)
--- NOTE | 2017-04-03 10:54 | CONS ---
Date/Time of Note Date/Time of Note DATE: 04/03/17 TIME: 10:54 Assessment/Plan Assessment/Plan Chief Complaint/Hosp Course 76-year-old male with acute CVA, transferred to acute rehabilitation unit from [facility] for further complex interdisciplinary rehab care. 1. 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 -Status post neurology and neurosurgical evaluation. Recommended medical management with aspirin, statin and blood pressure medications. 2. Hypertension. -Continue antihypertensives. Goal blood pressure ~ 140/90 3. Coagulase-negative Staphylococcus urinary tract infection. -Status post treatment. 4. Debility secondary to #1. -Continue with PT/OT evaluation and treatment 5. History of psychiatric illness. -Continue home medications. 6. GERD. Stable. -Continue Protonix. 7. Urinary retention/neurogenic bladder likely secondary to CVA -On Flomax. Urology on board and continue with in and out catheterization as needed. Patient was seen in collaboration with . Problems: Consultation Date/Type/Reason Admit Date/Time Mar 26, 2017 at 21:40 Type of Consultation: urlogy Referring Provider: YASSINE HAYDEN MD, [facility] 24 HR Interval Summary Free Text/Dictation No acute distress. Exam/Review of Systems Vital Signs Vitals Vital Signs Date Time Temp Pulse Resp B/P Pulse Ox O2 Delivery O2 Flow Rate FiO2 04/03/17 08:10 98.4 86 18 150/79 94 03/30/17 08:21 Room Air Intake and Output 04/02/17 04/02/17 04/03/17 15:00 23:00 07:00 Intake Total 730 ml 1200 ml Output Total 930 ml 550 ml Balance -200 ml 650 ml Exam General: Well developed,adequately built, not in any acute distress . HEENT: Normocephalic, Atraumatic, No laceration or hematoma; Eyes: PEERL, Conjunctiva clear, Anicteric sclera Neck: Supple without any lymphadenopathy, nontender, no JVD, no carotid bruits, trachea midline, no thyromegaly Cardiac: S1, S2 auscultated, regular rhythm and rate, no mumurs or gallop Pulmonary: Normal respiratory effort. Chest clear to auscultation bilaterally, no adventitious breath sounds GI: Abdomen normal to inspection. Soft, non tender, non- distended, no masses, no rebound tenderness or guarding. Bowel sounds active on all four quadrants Genitourinary: Deferred Extremities: Weakness to right upper extremities. No cyanosis, clubbing, or edema. Pulses [2+] bilaterally. Full ROM on all four extremities. No focal weakness appreciated. Neurologic: Patient appears sleepy mostly. However, he seems alert to person, place, time, and situation. Affect depressed, intact sensation. Skin: Clean,dry, and intact. No ecchymosis, no rashes, or lesions Medications Medications Current Medications Acetaminophen (Tylenol Tab) 650 mg Q4H PRN PO PAIN AND OR ELEVATED TEMP; Start 03/27/17 at 01:00 Amlodipine Besylate (Norvasc) 10 mg DAILY PO Last administered on 04/03/17 09 :06; Admin Dose 10 MG; Start 03/27/17 at 09:00 Aspirin (Aspirin) 81 mg DAILY PO Last administered on 04/03/17 09:06; Admin Dose 81 MG; Start 03/27/17 at 09:00 Atorvastatin Calcium (Lipitor) 80 mg DAILY@21 PO Last administered on 21:27; Admin Dose 80 MG; Start 03/27/17 at 21:00 Chlorpromazine (Thorazine) 25 mg TID PO Last administered on 04/03/17 09:06; Admin Dose 25 MG; Start 03/27/17 at 09:00 Docusate Sodium (Colace) 100 mg BID PO Last administered on 04/03/17 09:06; Admin Dose 100 MG; Start 03/27/17 at 09:00 Hydralazine HCl (Apresoline) 10 mg Q4H PRN IV HTN; Start 03/27/17 at 01:00 Morphine Sulfate (morphine) 2 mg Q4H PRN IV PAIN Last administered on 13:53; Admin Dose 2 MG; Start 03/27/17 at 01:00 Ondansetron HCl (Zofran Inj) 4 mg Q6H PRN IV NAUSEA AND/OR VOMITING; Start at 01:00 Miscellaneous Information (Flu Vaccine Previously Dispensed) FLU VACCINE PREVIOU... NOTE PRN XX NOTE; Start 03/27/17 at 02:30 Bisacodyl (Dulcolax Supp) 10 mg DAILY PRN [place] CONSTIPATION; Start 03/27/17 at 04:00 Magnesium Hydroxide (Milk Of Mag) 30 ml BID PRN PO CONSTIPATION; Start at 04:00 Lactulose 20 gm 20 gm DAILY PRN PO CONSTIPATION Last administered on 12:48; Admin Dose 20 GM; Start 03/27/17 at 04:00 Ceftriaxone Sodium (Rocephin) 50 ml @ 100 mls/hr Q24H IVPB Last administered on 04/02/17 12:00; Admin Dose 100 MLS/HR; Start 03/27/17 at 12:00; Stop at 11:59 Pantoprazole (Protonix Tab) 40 mg DAILY@06 PO Last administered on 04/03/17 06:40; Admin Dose 40 MG; Start 03/29/17 at 16:00 Tamsulosin HCl (Flomax) 0.4 mg HS PO Last administered on 04/02/17 21:27; Admin Dose 0.4 MG; Start 03/30/17 at 21:00 MISTY GALAN NP Apr 03, 2017 10:54
--- NOTE | 2017-04-03 12:04 | CONS ---
Date/Time of Note Date/Time of Note DATE: 04/03/17 TIME: 12:03 Consult Date/Type/Reason Admit Date/Time Mar 26, 2017 at 21:40 Initial Consult Date 03/28/17 Type of Consultation: urlogy Ordering Provider: [facility]DEN [facility] Subjective Patient in good spirits Objective Lungs clear abdomen soft Standby assist ambulation Vital Signs Date Time Temp Pulse Resp B/P Pulse Ox O2 Delivery O2 Flow Rate FiO2 04/03/17 08:10 98.4 86 18 150/79 94 03/30/17 08:21 Room Air Intake and Output 04/02/17 04/02/17 04/03/17 15:00 23:00 07:00 Intake Total 730 ml 1200 ml Output Total 930 ml 550 ml Balance -200 ml 650 ml Results/Medications Medications Current Medications Acetaminophen (Tylenol Tab) 650 mg Q4H PRN PO PAIN AND OR ELEVATED TEMP; Start 03/27/17 at 01:00 Amlodipine Besylate (Norvasc) 10 mg DAILY PO Last administered on 04/03/17 09 :06; Admin Dose 10 MG; Start 03/27/17 at 09:00 Aspirin (Aspirin) 81 mg DAILY PO Last administered on 04/03/17 09:06; Admin Dose 81 MG; Start 03/27/17 at 09:00 Atorvastatin Calcium (Lipitor) 80 mg DAILY@21 PO Last administered on 21:27; Admin Dose 80 MG; Start 03/27/17 at 21:00 Chlorpromazine (Thorazine) 25 mg TID PO Last administered on 04/03/17 09:06; Admin Dose 25 MG; Start 03/27/17 at 09:00 Docusate Sodium (Colace) 100 mg BID PO Last administered on 04/03/17 09:06; Admin Dose 100 MG; Start 03/27/17 at 09:00 Hydralazine HCl (Apresoline) 10 mg Q4H PRN IV HTN; Start 03/27/17 at 01:00 Morphine Sulfate (morphine) 2 mg Q4H PRN IV PAIN Last administered on 13:53; Admin Dose 2 MG; Start 03/27/17 at 01:00 Ondansetron HCl (Zofran Inj) 4 mg Q6H PRN IV NAUSEA AND/OR VOMITING; Start at 01:00 Miscellaneous Information (Flu Vaccine Previously Dispensed) FLU VACCINE PREVIOU... NOTE PRN XX NOTE; Start 03/27/17 at 02:30 Bisacodyl (Dulcolax Supp) 10 mg DAILY PRN [place] CONSTIPATION; Start 03/27/17 at 04:00 Magnesium Hydroxide (Milk Of Mag) 30 ml BID PRN PO CONSTIPATION; Start at 04:00 Lactulose (Enulose) 20 gm DAILY PRN PO CONSTIPATION Last administered on 12:48; Admin Dose 20 GM; Start 03/27/17 at 04:00 Pantoprazole (Protonix Tab) 40 mg DAILY@06 PO Last administered on 04/03/17 06:40; Admin Dose 40 MG; Start 03/29/17 at 16:00 Tamsulosin HCl (Flomax) 0.4 mg HS PO Last administered on 04/02/17 21:27; Admin Dose 0.4 MG; Start 03/30/17 at 21:00 Assessment/Plan Additional Assessment/Plan Rehab- 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 Excellent progress his rehabilitation program Hypertension. Urinary retention-f/b urology. Family training regarding retention REGI MARTINEZ MD Apr 03, 2017 12:04
[2017-04-03 14:25] VITALS: BP 125/68; RESP 18
[2017-04-03] MEDS: ACETAMINOPHEN 325 MG TAB PO PRN (16:51)
[2017-04-03 20:00] VITALS: BP 118/67; RESP 18
[2017-04-03] MEDS: TAMSULOSIN (SR) 0.4 MG CAP PO SCH (21:45)
[2017-04-03] MEDS: ATORVASTATIN 80 MG TAB PO SCH (21:46)
[2017-04-04 02:00] VITALS: BP 12/72; RESP 18
[2017-04-04] MEDS: PANTOPRAZOLE (EC) 40 MG TAB PO SCH (07:21)
[2017-04-04] MEDS: DOCUSATE SODIUM 100 MG CAP PO SCH ×2 (08:51→20:46)
[2017-04-04] MEDS: CHLORPROMAZINE 25 MG TAB PO SCH ×3 (08:51→20:46)
[2017-04-04] MEDS: ASPIRIN 81 MG TAB PO SCH (08:51)
[2017-04-04] MEDS: AMLODIPINE 10 MG TAB PO SCH (08:52)
--- NOTE | 2017-04-04 11:05 | CONS ---
Date/Time of Note Date/Time of Note DATE: 04/04/17 TIME: 11:04 Consult Date/Type/Reason Admit Date/Time Mar 26, 2017 at 21:40 Initial Consult Date 03/28/17 Type of Consultation: urlogy Ordering Provider: YASSINE HAYDEN [facility], [facility] Subjective Doing well Objective pulm-cta sba ambulation and stairs Vital Signs Date Time Temp Pulse Resp B/P Pulse Ox O2 Delivery O2 Flow Rate FiO2 04/04/17 02:00 98.7 72 18 12/72 95 Intake and Output 04/03/17 04/03/17 04/04/17 14:59 22:59 06:59 Intake Total 850 ml Output Total 475 ml 500 ml Balance -475 ml 350 ml Results/Medications Medications Current Medications Acetaminophen (Tylenol Tab) 650 mg Q4H PRN PO PAIN AND OR ELEVATED TEMP Last administered on 04/03/17 16:51; Admin Dose 650 MG; Start 03/27/17 at 01:00 Amlodipine Besylate (Norvasc) 10 mg DAILY PO Last administered on 04/04/17 08 :52; Admin Dose 10 MG; Start 03/27/17 at 09:00 Aspirin (Aspirin) 81 mg DAILY PO Last administered on 04/04/17 08:51; Admin Dose 81 MG; Start 03/27/17 at 09:00 Atorvastatin Calcium (Lipitor) 80 mg DAILY@21 PO Last administered on 21:46; Admin Dose 80 MG; Start 03/27/17 at 21:00 Chlorpromazine (Thorazine) 25 mg TID PO Last administered on 04/04/17 08:51; Admin Dose 25 MG; Start 03/27/17 at 09:00 Docusate Sodium (Colace) 100 mg BID PO Last administered on 04/04/17 08:51; Admin Dose 100 MG; Start 03/27/17 at 09:00 Hydralazine HCl (Apresoline) 10 mg Q4H PRN IV HTN; Start 03/27/17 at 01:00 Morphine Sulfate (morphine) 2 mg Q4H PRN IV PAIN Last administered on 13:53; Admin Dose 2 MG; Start 03/27/17 at 01:00 Ondansetron HCl (Zofran Inj) 4 mg Q6H PRN IV NAUSEA AND/OR VOMITING; Start at 01:00 Miscellaneous Information (Flu Vaccine Previously Dispensed) FLU VACCINE PREVIOU... NOTE PRN XX NOTE; Start 03/27/17 at 02:30 Bisacodyl (Dulcolax Supp) 10 mg DAILY PRN [place] CONSTIPATION; Start 03/27/17 at 04:00 Magnesium Hydroxide (Milk Of Mag) 30 ml BID PRN PO CONSTIPATION; Start at 04:00 Lactulose (Enulose) 20 gm DAILY PRN PO CONSTIPATION Last administered on 12:48; Admin Dose 20 GM; Start 03/27/17 at 04:00 Pantoprazole (Protonix Tab) 40 mg DAILY@06 PO Last administered on 04/04/17 07:21; Admin Dose 40 MG; Start 03/29/17 at 16:00 Tamsulosin HCl (Flomax) 0.4 mg HS PO Last administered on 04/03/17 21:45; Admin Dose 0.4 MG; Start 03/30/17 at 21:00 Assessment/Plan Additional Assessment/Plan Rehab- 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 Great gains, anticipate dc Thursday Hypertension. Urinary retention-f/b urology. Family training regarding retention REGI MARTINEZ MD Apr 04, 2017 11:04
--- NOTE | 2017-04-04 13:16 | CONS ---
Date/Time of Note Date/Time of Note DATE: 04/04/17 TIME: 13:16 Assessment/Plan Assessment/Plan Additional Assessment/Plan 1. Status post left cerebellar hemisphere infarct. Status post evaluation by neurology and neurosurgery. Continue aspirin, statin, and antihypertensives. Currently undergoing acute rehabilitation. 2. Essential hypertension. Continue antihypertensives. 3. Status post coagulase-negative Staphylococcus urinary tract infection. 4. History of psychiatric illness. Continue mood stabilizers. 5. Urinary retention. Most likely secondary to stroke. Being followed by urology. Continue Flomax. Check PVR and straight catheterize as needed. 6. GERD. Continue Protonix. 7. Fluids, electrolytes, and nutrition. Low-cholesterol diet. 8. DVT prophylaxis. Ambulation. 9. Plan. Continue current management. Discharge planning as per acute rehabilitation team. Case discussed with Dr. Ramos. Consultation Date/Type/Reason Admit Date/Time Mar 26, 2017 at 21:40 Initial Consult Date 03/28/17 Type of Consultation: Internal Medicine Referring Provider: REGI MARTINEZ MD 24 HR Interval Summary Free Text/Dictation The patient having his lunch. Denies any complaints. Continues to have high postvoid residual. Exam/Review of Systems Vital Signs Vitals Vital Signs Date Time Temp Pulse Resp B/P Pulse Ox O2 Delivery O2 Flow Rate FiO2 04/04/17 02:00 98.7 72 18 12/72 95 Intake and Output 04/03/17 04/03/17 04/04/17 15:00 23:00 07:00 Intake Total 850 ml Output Total 475 ml 500 ml Balance -475 ml 350 ml Exam General: Adequately build 76 year-old male lying in bed in no apparent distress. HEENT: Normocephalic, atraumatic. Eyes: Anicteric sclerae, conjunctivae clear. ENT: Nasal septum midline, oral mucosa moist. Neck supple, no JVD noticed. Respiratory: Bilaterally clear breath sounds. No use of accessory muscles of respiration. No adventitious breath sounds. Cardiovascular: S1, S2 heard. No murmurs or gallops. Abdomen: Soft, nontender, and nondistended. Bowel sounds positive in all 4 quadrants. Genitourinary: Deferred. Extremities: No cyanosis, no clubbing, no edema. Peripheral pulses palpable. Neurologic: Cranial nerves II through XII grossly intact. The patient is awake, alert, and oriented. Skin: Normal skin turgor. No skin rashes. Medications Medications Current Medications Acetaminophen (Tylenol Tab) 650 mg Q4H PRN PO PAIN AND OR ELEVATED TEMP Last administered on 04/03/17 16:51; Admin Dose 650 MG; Start 03/27/17 at 01:00 Amlodipine Besylate (Norvasc) 10 mg DAILY PO Last administered on 04/04/17 08 :52; Admin Dose 10 MG; Start 03/27/17 at 09:00 Aspirin (Aspirin) 81 mg DAILY PO Last administered on 04/04/17 08:51; Admin Dose 81 MG; Start 03/27/17 at 09:00 Atorvastatin Calcium (Lipitor) 80 mg DAILY@21 PO Last administered on 21:46; Admin Dose 80 MG; Start 03/27/17 at 21:00 Chlorpromazine (Thorazine) 25 mg TID PO Last administered on 04/04/17 12:45; Admin Dose 25 MG; Start 03/27/17 at 09:00 Docusate Sodium (Colace) 100 mg BID PO Last administered on 04/04/17 08:51; Admin Dose 100 MG; Start 03/27/17 at 09:00 Hydralazine HCl (Apresoline) 10 mg Q4H PRN IV HTN; Start 03/27/17 at 01:00 Morphine Sulfate (morphine) 2 mg Q4H PRN IV PAIN Last administered on 13:53; Admin Dose 2 MG; Start 03/27/17 at 01:00 Ondansetron HCl (Zofran Inj) 4 mg Q6H PRN IV NAUSEA AND/OR VOMITING; Start at 01:00 Miscellaneous Information (Flu Vaccine Previously Dispensed) FLU VACCINE PREVIOU... NOTE PRN XX NOTE; Start 03/27/17 at 02:30 Bisacodyl (Dulcolax Supp) 10 mg DAILY PRN [place] CONSTIPATION; Start 03/27/17 at 04:00 Magnesium Hydroxide (Milk Of Mag) 30 ml BID PRN PO CONSTIPATION; Start at 04:00 Lactulose (Enulose) 20 gm DAILY PRN PO CONSTIPATION Last administered on 12:48; Admin Dose 20 GM; Start 03/27/17 at 04:00 Pantoprazole (Protonix Tab) 40 mg DAILY@06 PO Last administered on 04/04/17 07:21; Admin Dose 40 MG; Start 03/29/17 at 16:00 Tamsulosin HCl (Flomax) 0.4 mg HS PO Last administered on 04/03/17 21:45; Admin Dose 0.4 MG; Start 03/30/17 at 21:00 CARLOS LANGE NP Apr 04, 2017 13:16
--- NOTE | 2017-04-04 13:50 | PN ---
Date/Time of Note Date/Time of Note DATE: 04/04/17 TIME: 13:48 Assessment/Plan VTE Prophylaxis VTE Prophylaxis Intervention: SCD's Lines/Catheters IV Catheter Type (from Nrs): Saline Lock Urinary Cath still in place: No Assessment/Plan Chief Complaint/Hosp Course Urinary retention, check his voiding, his postvoid residual, do straight cath for a postvoid residual of 300 mL or if bladder scan shows over 500 mL and he does not void. The retention is most likely secondary to his recent stroke Urinary tract infection for which she is already on antibiotic. His has been helping and doing the straight cath for him, last time it was done she drained about 550mL Problems: Subjective 24 Hr Interval Summary Constitutional: no complaints Eyes: no complaints ENT: no complaints Respiratory: no complaints Cardiovascular: no complaints Gastrointestinal: no complaints Genitourinary: other (Urinary retention) Musculoskeletal: no complaints Exam/Review of Systems Vital Signs Vitals Vital Signs Date Time Temp Pulse Resp B/P Pulse Ox O2 Delivery O2 Flow Rate FiO2 04/04/17 02:00 98.7 72 18 12/72 95 Intake and Output 04/03/17 04/03/17 04/04/17 15:00 23:00 07:00 Intake Total 850 ml Output Total 475 ml 500 ml Balance -475 ml 350 ml Exam Constitutional: alert, oriented Psych: no complaints Eyes: nl conjunctiva ENMT: nl external ears & nose Neck: supple Respiratory: normal air movement Cardiovascular: No edema Gastrointestinal: soft Genitourinary - Male: other (Patient still unable to void bladder scan shows over 573 mL and straight catheter drained 550 mL) Medications Medications Current Medications Acetaminophen (Tylenol Tab) 650 mg Q4H PRN PO PAIN AND OR ELEVATED TEMP Last administered on 04/03/17 16:51; Admin Dose 650 MG; Start 03/27/17 at 01:00 Amlodipine Besylate (Norvasc) 10 mg DAILY PO Last administered on 04/04/17 08 :52; Admin Dose 10 MG; Start 03/27/17 at 09:00 Aspirin (Aspirin) 81 mg DAILY PO Last administered on 04/04/17 08:51; Admin Dose 81 MG; Start 03/27/17 at 09:00 Atorvastatin Calcium (Lipitor) 80 mg DAILY@21 PO Last administered on 21:46; Admin Dose 80 MG; Start 03/27/17 at 21:00 Chlorpromazine (Thorazine) 25 mg TID PO Last administered on 04/04/17 12:45; Admin Dose 25 MG; Start 03/27/17 at 09:00 Docusate Sodium (Colace) 100 mg BID PO Last administered on 04/04/17 08:51; Admin Dose 100 MG; Start 03/27/17 at 09:00 Hydralazine HCl (Apresoline) 10 mg Q4H PRN IV HTN; Start 03/27/17 at 01:00 Morphine Sulfate (morphine) 2 mg Q4H PRN IV PAIN Last administered on 13:53; Admin Dose 2 MG; Start 03/27/17 at 01:00 Ondansetron HCl (Zofran Inj) 4 mg Q6H PRN IV NAUSEA AND/OR VOMITING; Start at 01:00 Miscellaneous Information (Flu Vaccine Previously Dispensed) FLU VACCINE PREVIOU... NOTE PRN XX NOTE; Start 03/27/17 at 02:30 Bisacodyl (Dulcolax Supp) 10 mg DAILY PRN [place] CONSTIPATION; Start 03/27/17 at 04:00 Magnesium Hydroxide (Milk Of Mag) 30 ml BID PRN PO CONSTIPATION; Start at 04:00 Lactulose (Enulose) 20 gm DAILY PRN PO CONSTIPATION Last administered on 12:48; Admin Dose 20 GM; Start 03/27/17 at 04:00 Pantoprazole (Protonix Tab) 40 mg DAILY@06 PO Last administered on 04/04/17 07:21; Admin Dose 40 MG; Start 03/29/17 at 16:00 Tamsulosin HCl (Flomax) 0.4 mg HS PO Last administered on 04/03/17 21:45; Admin Dose 0.4 MG; Start 03/30/17 at 21:00 RYANN CONNELL MD Apr 04, 2017 13:50
[2017-04-04 14:00] VITALS: BP 128/66; RESP 18
[2017-04-04] MEDS: LACTULOSE 30ML CUP PO PRN (18:03)
[2017-04-04 19:53] VITALS: BP 144/70; RESP 19
[2017-04-04] MEDS: ATORVASTATIN 80 MG TAB PO SCH (20:46)
[2017-04-04] MEDS: TAMSULOSIN (SR) 0.4 MG CAP PO SCH (20:46)
[2017-04-05 02:00] VITALS: BP 132/69; RESP 19
[2017-04-05] MEDS: PANTOPRAZOLE (EC) 40 MG TAB PO SCH (06:33)
[2017-04-05 07:00] VITALS: BP 137/72; RESP 18
[2017-04-05 08:00] VITALS: BP 137/72; PULSE 88; RESP 18
[2017-04-05] MEDS: DOCUSATE SODIUM 100 MG CAP PO SCH ×2 (09:38→20:40)
[2017-04-05] MEDS: CHLORPROMAZINE 25 MG TAB PO SCH ×3 (09:38→21:46)
[2017-04-05] MEDS: ASPIRIN 81 MG TAB PO SCH (09:38)
[2017-04-05] MEDS: AMLODIPINE 10 MG TAB PO SCH (09:38)
--- NOTE | 2017-04-05 12:12 | CONS ---
Date/Time of Note Date/Time of Note DATE: 04/05/17 TIME: 12:11 Assessment/Plan Assessment/Plan Chief Complaint/Hosp Course 1. Status post left cerebellar hemisphere infarct. Status post evaluation by neurology and neurosurgery. Continue aspirin, statin, and antihypertensives. Currently undergoing acute rehabilitation. 2. Essential hypertension. Continue antihypertensives. 3. Status post coagulase-negative Staphylococcus urinary tract infection. 4. History of psychiatric illness. Continue mood stabilizers. 5. Urinary retention. Most likely secondary to stroke. Being followed by urology. Continue Flomax. Check PVR and straight catheterize as needed. 6. GERD. Continue Protonix. 7. Fluids, electrolytes, and nutrition. Low-cholesterol diet. 8. DVT prophylaxis. Ambulation. 9. Plan. Continue current management. Discharge planning as per acute rehabilitation team. Case discussed with Dr. Ramos. Problems: Consultation Date/Type/Reason Admit Date/Time Mar 26, 2017 at 21:40 Initial Consult Date 03/28/17 Type of Consultation: Internal Medicine Referring Provider: REGI MARTINEZ MD 24 HR Interval Summary Free Text/Dictation No changes in status. Exam/Review of Systems Vital Signs Vitals Vital Signs Date Time Temp Pulse Resp B/P Pulse Ox O2 Delivery O2 Flow Rate FiO2 04/05/17 08:00 98.4 88 18 137/72 95 Room Air Intake and Output 04/04/17 04/04/17 04/05/17 15:00 23:00 07:00 Intake Total 700 ml 1120 ml 200 ml Output Total 596 ml 700 ml 750 ml Balance 104 ml 420 ml -550 ml Exam General: Adequately build 76 year-old male lying in bed in no apparent distress. HEENT: Normocephalic, atraumatic. Eyes: Anicteric sclerae, conjunctivae clear. ENT: Nasal septum midline, oral mucosa moist. Neck supple, no JVD noticed. Respiratory: Bilaterally clear breath sounds. No use of accessory muscles of respiration. No adventitious breath sounds. Cardiovascular: S1, S2 heard. No murmurs or gallops. Abdomen: Soft, nontender, and nondistended. Bowel sounds positive in all 4 quadrants. Genitourinary: Deferred. Extremities: No cyanosis, no clubbing, no edema. Peripheral pulses palpable. Neurologic: Cranial nerves II through XII grossly intact. The patient is awake, alert, and oriented. Skin: Normal skin turgor. No skin rashes. Medications Medications Current Medications Acetaminophen (Tylenol Tab) 650 mg Q4H PRN PO PAIN AND OR ELEVATED TEMP Last administered on 04/03/17 16:51; Admin Dose 650 MG; Start 03/27/17 at 01:00 Amlodipine Besylate (Norvasc) 10 mg DAILY PO Last administered on 04/05/17 09 :38; Admin Dose 10 MG; Start 03/27/17 at 09:00 Aspirin (Aspirin) 81 mg DAILY PO Last administered on 04/05/17 09:38; Admin Dose 81 MG; Start 03/27/17 at 09:00 Atorvastatin Calcium (Lipitor) 80 mg DAILY@21 PO Last administered on 20:46; Admin Dose 80 MG; Start 03/27/17 at 21:00 Chlorpromazine (Thorazine) 25 mg TID PO Last administered on 04/05/17 09:38; Admin Dose 25 MG; Start 03/27/17 at 09:00 Docusate Sodium (Colace) 100 mg BID PO Last administered on 04/05/17 09:38; Admin Dose 100 MG; Start 03/27/17 at 09:00 Hydralazine HCl (Apresoline) 10 mg Q4H PRN IV HTN; Start 03/27/17 at 01:00 Morphine Sulfate (morphine) 2 mg Q4H PRN IV PAIN Last administered on 13:53; Admin Dose 2 MG; Start 03/27/17 at 01:00 Ondansetron HCl (Zofran Inj) 4 mg Q6H PRN IV NAUSEA AND/OR VOMITING; Start at 01:00 Miscellaneous Information (Flu Vaccine Previously Dispensed) FLU VACCINE PREVIOU... NOTE PRN XX NOTE; Start 03/27/17 at 02:30 Bisacodyl (Dulcolax Supp) 10 mg DAILY PRN [place] CONSTIPATION; Start 03/27/17 at 04:00 Magnesium Hydroxide (Milk Of Mag) 30 ml BID PRN PO CONSTIPATION; Start at 04:00 Lactulose (Enulose) 20 gm DAILY PRN PO CONSTIPATION Last administered on 18:03; Admin Dose 20 GM; Start 03/27/17 at 04:00 Pantoprazole (Protonix Tab) 40 mg DAILY@06 PO Last administered on 04/05/17 06:33; Admin Dose 40 MG; Start 03/29/17 at 16:00 Tamsulosin HCl (Flomax) 0.4 mg HS PO Last administered on 04/04/17 20:46; Admin Dose 0.4 MG; Start 03/30/17 at 21:00 CARLOS LANGE NP Apr 05, 2017 12:11
--- NOTE | 2017-04-05 15:11 | PN ---
Date/Time of Note Date/Time of Note DATE: 04/05/17 TIME: 15:07 Assessment/Plan VTE Prophylaxis VTE Prophylaxis Intervention: SCD's Lines/Catheters IV Catheter Type (from [facility]): Saline Lock Urinary Cath still in place: No Assessment/Plan Chief Complaint/Hosp Course Urinary retention, check his voiding, his postvoid residual, do straight cath for a postvoid residual of 300 mL or if bladder scan shows over 500 mL and he does not void. The retention is most likely secondary to his recent stroke Urinary tract infection for which she is already on antibiotic. His has been helping and doing the straight cath for him, Last catheterization was 450 mL by the nursing staff Problems: Subjective 24 Hr Interval Summary Constitutional: no complaints Eyes: no complaints ENT: no complaints Respiratory: no complaints Cardiovascular: no complaints Gastrointestinal: no complaints Genitourinary: other (Voids a small amount, about 50 mL each time) Neurologic: focal-weakness Exam/Review of Systems Vital Signs Vitals Vital Signs Date Time Temp Pulse Resp B/P Pulse Ox O2 Delivery O2 Flow Rate FiO2 04/05/17 08:00 98.4 88 18 137/72 95 Room Air Intake and Output 04/04/17 04/04/17 04/05/17 15:00 23:00 07:00 Intake Total 700 ml 1120 ml 200 ml Output Total 596 ml 700 ml 750 ml Balance 104 ml 420 ml -550 ml Exam Constitutional: alert, oriented Psych: no complaints Head: atraumatic Eyes: nl conjunctiva ENMT: nl external ears & nose Neck: non-tender Respiratory: normal air movement Cardiovascular: No edema Gastrointestinal: soft Genitourinary - Male: other (Earlier today bladder scan showed 418 mL so no catheterization was done then 2 hours later the bladder scan showed 633 mL, the patient was catheterized and 450 mL drained out. Since then he did void twice each time about 50 mL) Medications Medications Current Medications Acetaminophen (Tylenol Tab) 650 mg Q4H PRN PO PAIN AND OR ELEVATED TEMP Last administered on 04/03/17 16:51; Admin Dose 650 MG; Start 03/27/17 at 01:00 Amlodipine Besylate (Norvasc) 10 mg DAILY PO Last administered on 04/05/17 09 :38; Admin Dose 10 MG; Start 03/27/17 at 09:00 Aspirin (Aspirin) 81 mg DAILY PO Last administered on 04/05/17 09:38; Admin Dose 81 MG; Start 03/27/17 at 09:00 Atorvastatin Calcium (Lipitor) 80 mg DAILY@21 PO Last administered on 20:46; Admin Dose 80 MG; Start 03/27/17 at 21:00 Chlorpromazine (Thorazine) 25 mg TID PO Last administered on 04/05/17 12:56; Admin Dose 25 MG; Start 03/27/17 at 09:00 Docusate Sodium (Colace) 100 mg BID PO Last administered on 04/05/17 09:38; Admin Dose 100 MG; Start 03/27/17 at 09:00 Hydralazine HCl (Apresoline) 10 mg Q4H PRN IV HTN; Start 03/27/17 at 01:00 Morphine Sulfate (morphine) 2 mg Q4H PRN IV PAIN Last administered on 13:53; Admin Dose 2 MG; Start 03/27/17 at 01:00 Ondansetron HCl (Zofran Inj) 4 mg Q6H PRN IV NAUSEA AND/OR VOMITING; Start at 01:00 Miscellaneous Information (Flu Vaccine Previously Dispensed) FLU VACCINE PREVIOU... NOTE PRN XX NOTE; Start 03/27/17 at 02:30 Bisacodyl (Dulcolax Supp) 10 mg DAILY PRN [place] CONSTIPATION; Start 03/27/17 at 04:00 Magnesium Hydroxide (Milk Of Mag) 30 ml BID PRN PO CONSTIPATION; Start at 04:00 Lactulose (Enulose) 20 gm DAILY PRN PO CONSTIPATION Last administered on 18:03; Admin Dose 20 GM; Start 03/27/17 at 04:00 Pantoprazole (Protonix Tab) 40 mg DAILY@06 PO Last administered on 04/05/17 06:33; Admin Dose 40 MG; Start 03/29/17 at 16:00 Tamsulosin HCl (Flomax) 0.4 mg HS PO Last administered on 04/04/17 20:46; Admin Dose 0.4 MG; Start 03/30/17 at 21:00 RYANN CONNELL MD Apr 05, 2017 15:11
[2017-04-05] MEDS: ACETAMINOPHEN 325 MG TAB PO PRN (16:46)
[2017-04-05 20:00] VITALS: BP 123/61; RESP 18
[2017-04-05] MEDS: TAMSULOSIN (SR) 0.4 MG CAP PO SCH (20:40)
[2017-04-05] MEDS: ATORVASTATIN 80 MG TAB PO SCH (20:40)
[2017-04-06 02:00] VITALS: BP 135/69; RESP 18
[2017-04-06] MEDS: PANTOPRAZOLE (EC) 40 MG TAB PO SCH (05:38)
[2017-04-06 07:30] VITALS: BP 154/75; RESP 20
[2017-04-06] MEDS: AMLODIPINE 10 MG TAB PO SCH (09:10)
[2017-04-06] MEDS: ASPIRIN 81 MG TAB PO SCH (09:10)
[2017-04-06] MEDS: DOCUSATE SODIUM 100 MG CAP PO SCH (09:10)
[2017-04-06] MEDS: CHLORPROMAZINE 25 MG TAB PO SCH ×2 (09:11→13:00)
--- NOTE | 2017-04-06 12:31 | CONS ---
Date/Time of Note Date/Time of Note DATE: 04/06/17 TIME: 12:31 Consult Date/Type/Reason Admit Date/Time Mar 26, 2017 at 21:40 Initial Consult Date 03/28/17 Type of Consultation: Internal Medicine Ordering Provider: REGI MARTINEZ MD Objective Vital Signs Date Time Temp Pulse Resp B/P Pulse Ox O2 Delivery O2 Flow Rate FiO2 04/06/17 07:30 98.3 83 20 154/75 94 04/05/17 08:00 Room Air Intake and Output 04/05/17 04/05/17 04/06/17 15:00 23:00 07:00 Intake Total 1200 ml 480 ml Output Total 10 ml Balance 1200 ml 470 ml INTERDISCIPLINARY TEAM CONFERENCE BOWEL- Cont BLADDER-Urinary retention, requiring I&O cath SKIN- intact OT- DRESSING-s BATHING-s TOILETING-s PT- BED MOBILITY-s TRANSFERS-s AMBULATION-s 150 feet SPEECH- COGNITION-s A/P- Interdisciplinary team conference held today. Please see interdisciplinary sheet. Working toward d.c. today with post discharge follow up of physical therapy, occupational therapy, and home health RN. Results/Medications Medications Current Medications Acetaminophen (Tylenol Tab) 650 mg Q4H PRN PO PAIN AND OR ELEVATED TEMP Last administered on 04/05/17 16:46; Admin Dose 650 MG; Start 03/27/17 at 01:00 Amlodipine Besylate (Norvasc) 10 mg DAILY PO Last administered on 04/06/17 09 :10; Admin Dose 10 MG; Start 03/27/17 at 09:00 Aspirin (Aspirin) 81 mg DAILY PO Last administered on 04/06/17 09:10; Admin Dose 81 MG; Start 03/27/17 at 09:00 Atorvastatin Calcium (Lipitor) 80 mg DAILY@21 PO Last administered on 20:40; Admin Dose 80 MG; Start 03/27/17 at 21:00 Chlorpromazine (Thorazine) 25 mg TID PO Last administered on 04/06/17 09:11; Admin Dose 25 MG; Start 03/27/17 at 09:00 Docusate Sodium (Colace) 100 mg BID PO Last administered on 04/06/17 09:10; Admin Dose 100 MG; Start 03/27/17 at 09:00 Hydralazine HCl (Apresoline) 10 mg Q4H PRN IV HTN; Start 03/27/17 at 01:00 Morphine Sulfate (morphine) 2 mg Q4H PRN IV PAIN Last administered on 13:53; Admin Dose 2 MG; Start 03/27/17 at 01:00 Ondansetron HCl (Zofran Inj) 4 mg Q6H PRN IV NAUSEA AND/OR VOMITING; Start at 01:00 Miscellaneous Information (Flu Vaccine Previously Dispensed) FLU VACCINE PREVIOU... NOTE PRN XX NOTE; Start 03/27/17 at 02:30 Bisacodyl (Dulcolax Supp) 10 mg DAILY PRN [place] CONSTIPATION; Start 03/27/17 at 04:00 Magnesium Hydroxide (Milk Of Mag) 30 ml BID PRN PO CONSTIPATION; Start at 04:00 Lactulose (Enulose) 20 gm DAILY PRN PO CONSTIPATION Last administered on 18:03; Admin Dose 20 GM; Start 03/27/17 at 04:00 Pantoprazole (Protonix Tab) 40 mg DAILY@06 PO Last administered on 04/06/17 05:38; Admin Dose 40 MG; Start 03/29/17 at 16:00 Tamsulosin HCl (Flomax) 0.4 mg HS PO Last administered on 04/05/17 20:40; Admin Dose 0.4 MG; Start 03/30/17 at 21:00 REGI MARTINEZ MD Apr 06, 2017 12:31
--- NOTE | 2017-04-07 10:09 | DS ---
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 2. Hypertension. 3. Urinary retention. 4. Improvements in self-care, mobility and mild cognition. Patient Condition: Good Hospital Course Patient was admitted for comprehensive interdisciplinary acute rehabilitation. Patient made steady functional gains and improved from a mod level to a Modified Independent level for self care and mobility, including ambulating over 150 feet with the use of a front wheeled walker. Patient was followed closely by urology for urniary retention. The significant other was trained in assistance for I&O cath technique, and able to safely demonstrate carry over of technique. Patient is being discharged home with recommendations for home health PT , OT. and RN follow up. DME recommendations: FWW; BSC; Shower Chair Patient will follow up with PMD upon DC. Home Meds No Active Prescriptions or Reported Meds Primary Care Provider Not On Staff Doctor REGI MARTINEZ MD Apr 07, 2017 10:09
== END 2017-04-06 13:45 | disposition home health service (06) | DRG 57 ==
LOC: VRC 21:40
PROVIDERS: ADMIT Physical Medicine & Rehabilitation; ATTEND Internal Medicine Pulmonary Disease
PROC: F07Z5ZZ Bed Mobility Treatment (ICD-10-PCS; principal; 2017-03-26)
PROC: F08Z2ZZ Grooming/Personal Hygiene Treatment (ICD-10-PCS; 2017-03-26)
PROC: F06Z6ZZ Communicative/Cognitive Integration Skills Treatment (ICD-10-PCS; 2017-03-26)
DX: I69.398 Other sequelae of cerebral infarction (principal); N39.0 Urinary tract infection, site not specified; N31.9 Neuromuscular dysfunction of bladder, unspecified; I10 Essential (primary) hypertension; R33.9 Retention of urine, unspecified; Z79.82 Long term (current) use of aspirin; R53.81 Other malaise; F99 Mental disorder, not otherwise specified; K21.9 Gastro-esophageal reflux disease without esophagitis
CPT/HCPCS: 76856; 80053; 81001; 85025; 87081; 87086; 92507; 92523; 97110; 97112; 97116; 97150; 97162; 97167; 97530; 97535; A4310; J0696; J2270; J3370; J7050